=== PATIENT | female | born 1990 | race Caucasian/White ===

== ENCOUNTER 2016-07-11 12:21 | Emergency (ER) | payer OTHER ==
[~2016-07-11 12:21] MED LIST: ALUMCHW PO; AMOX500T PO; FLNIN/ NAE; LANS30CA63 PO; NORE5TAB5 PO; TRMCR130WC TOP
[2016-07-11 12:23] VITALS: TEMP 37.1
[2016-07-11] MEDS ORDERED: ALBUT/IPRATROP 3MG/0.5MG NEB 3 ML VIAL INH STA (12:28)
[2016-07-11] MEDS ORDERED: SODIUM CHLORIDE 0.9% 1000ML 500 ML IV STA (12:28)
[2016-07-11 12:43] VITALS: O2SAT 96
--- NOTE | 2016-07-11 12:55 | EMERGENCY ROOM VISIT NOTE ---
History Report prepared by Brissa: Diana Omalley Under the Supervision of: Dr. Jesse Thornton M.D. First contact with patient: 12:26 Chief Complaint: COUGH Stated Complaint: COUGH, BLURRY VISION History of Present Illness The patient is a 26 year old female who presents to the Emergency Room with complaints of persistent cough starting 3 weeks ago. 3 weeks ago she was admitted to [facility] with influenza B. She was there for 5 days and was on Tamiflu. They did a CT of the neck which found that she had a lump. The patient' s mother was told that her glands were enlarged. Upon returning home, the patient complained of neck pain. She had difficulty swallowing. She also has had lightheadedness, diarrhea, headache and pain and swelling on the side of her head since being discharged. Diarrhea is very unusual for her as she is usually constipated. The symptoms have worsened in the past 2 days and she has also developed blurry vision. She reports feeling cold and being unable to get warm. She does not have a fever because of immune deficiency and she cannot vomit because of prior surgery. She has no urinary symptoms. She has no history of lung disease or asthma. Her mother reports no known mono exposure. The patient has had pneumonia before. Source of History: patient, parent Onset: 3 weeks ago Position: other (global) Quality: other (cough) Timing: other (persistent) Associated Symptoms: + chills, + diarrhea, + headache, + neck pain, No fevers, No urinary symptoms, No vomiting Note: Pt has difficulty swallowing, lightheadedness, pain and swelling on side of head , blurry vision. Review of Systems See HPI for pertinent positives & negatives. A total of 10 systems reviewed and were otherwise negative. Past Medical & Surgical Medical Problems: (1) Cleft palate repair (2) Esophageal surgery (3) Jocelynn-Taybi syndrome Surgical Problems: (1) H/O myringotomy Family History No significant family history Unknown due to adoption. Social History Smoking Status: Never Smoker Drug Use: none Marital Status: single Housing Status: lives with family Occupation Status: disabled Current/Historical Medications Scheduled Albuterol Hfa (Ventolin Hfa), 2 PUFFS INH Q6H Lansoprazole (Prevacid), 30 MG PO DAILY Norethindrone (Aygestin), 5 MG PO DAILY Prednisone (Prednisone), 1 TAB PO DAILY Sertraline HCl (Sertraline HCl), 50 MG PO QPM Scheduled PRN Benzonatate (Tessalon Perles), 100 MG PO Q6H PRN for Cough Allergies Coded Allergies: Fluconazole (Unverified Allergy, Unknown, UNKNOWN, 07/11/16) Physical Exam Vital Signs Date Time Temp Pulse Resp B/P Pulse Ox O2 Delivery O2 Flow Rate FiO2 07/11/16 15:46 109 20 100/64 07/11/16 14:45 116 20 93/58 97 Room Air 07/11/16 13:56 131 20 107/68 96 Room Air 07/11/16 12:44 124 07/11/16 12:43 96 Room Air 07/11/16 12:43 96 Room Air 07/11/16 12:23 37.1 117 20 66/51 100 Physical Exam GENERAL: Patient is in no acute distress. Dry cough noted. HEENT: No acute trauma, normocephalic atraumatic, mucous membranes moist, no nasal congestion, no scleral icterus. Mild throat erythema without exudate. NECK: No stridor, trachea is midline, tenderness to palpation of the right neck , but no palpable adenopathy or swelling seen. LUNGS: Clear to auscultation bilaterally, no wheeze, no rhonchi, breath sounds equal. HEART: Tachycardic rate with a regular rhythm, no murmurs. ABDOMEN: Soft, nontender, bowel sounds positive, no hernias, no peritonitis. EXTREMITIES: No cyanosis or edema, full range of motion of all the joints without pain or difficulty, no signs for acute trauma. NEUROLOGIC: MR noted, moving all extremities equally, awake and alert. SKIN: No rash, no jaundice, no diaphoresis. Medical Decision & Procedures ER Provider Diagnostic Interpretation: X-ray results as stated below per interpretation by me and the radiologist: CHEST ONE VIEW PORTABLE CLINICAL HISTORY: EVALUATE RESPIRATORY DISTRESS. DYSPNEA COMPARISON STUDY: 01/31/2016 FINDINGS: The bones soft tissues and hemidiaphragms are normal. The cardiomediastinal silhouette is normal. The lungs are clear. The pulmonary vasculature is normal. IMPRESSION: Negative chest. Electronically signed by: Christo Avelar M.D. 07/11/2016 1:09 PM Dictated Date/Time: 07/11/2016 1:07 PM Laboratory Results 07/11/16 12:55 Red Blood Count 4.28, Mean Corpuscular Volume 84.1, Mean Corpuscular Hemoglobin 28.5, Mean Corpuscular Hemoglobin Concent 33.9, Mean Platelet Volume 10.5, Neutrophils (%) (Auto) 72.1, Lymphocytes (%) (Auto) 15.6, Monocytes (%) (Auto) 11.5, Eosinophils (%) (Auto) 0.2, Basophils (%) (Auto) 0.2, Neutrophils # (Auto ) 3.84, Lymphocytes # (Auto) 0.83, Monocytes # (Auto) 0.61, Eosinophils # (Auto ) 0.01, Basophils # (Auto) 0.01 07/11/16 12:55 Test 07/11/16 12:45 07/11/16 12:55 Urine Color YELLOW Urine Appearance CLEAR (CLEAR) Urine pH 6.5 (4.5-7.5) Urine Specific Blevins 1.003 (1.000-1.030) Urine Protein NEG (NEG) Urine Glucose (UA) NEG (NEG) Urine Ketones NEG (NEG) Urine Occult Blood NEG (NEG) Urine Nitrite NEG (NEG) Urine Bilirubin NEG (NEG) Urine Urobilinogen NEG (NEG) Urine Leukocyte Esterase MODERATE (NEG) Urine WBC (Auto) /hpf (0-5) Urine RBC (Auto) /hpf (0-4) Urine Hyaline Casts (Auto) /lpf (0-5) Urine Epithelial Cells (Auto) /lpf (0-5) Urine Bacteria (Auto) (NEG) Urine RBC 0-4 /hpf (0-4) Urine WBC 10-30 /hpf (0-5) Urine Epithelial Cells >30 /lpf (0-5) Urine Bacteria 1+ (NEG) White Blood Count 5.32 K/uL (4.8-10.8) Red Blood Count 4.28 M/uL (4.2-5.4) Hemoglobin 12.2 g/dL (12.0-16.0) Hematocrit 36.0 % (37-47) Mean Corpuscular Volume 84.1 fL (80-100) Mean Corpuscular Hemoglobin 28.5 pg (25-34) Mean Corpuscular Hemoglobin Concent 33.9 g/dl (32-36) Platelet Count 237 K/uL (130-400) Mean Platelet Volume 10.5 fL (7.4-10.4) Neutrophils (%) (Auto) 72.1 % Lymphocytes (%) (Auto) 15.6 % Monocytes (%) (Auto) 11.5 % Eosinophils (%) (Auto) 0.2 % Basophils (%) (Auto) 0.2 % Neutrophils # (Auto) 3.84 K/uL (1.4-6.5) Lymphocytes # (Auto) 0.83 K/uL (1.2-3.4) Monocytes # (Auto) 0.61 K/uL (0.11-0.59) Eosinophils # (Auto) 0.01 K/uL (0-0.5) Basophils # (Auto) 0.01 K/uL (0-0.2) RDW Standard Deviation 43.4 fL (36.4-46.3) RDW Coefficient of Variation 14.2 % (11.5-14.5) Immature Granulocyte % (Auto) 0.4 % Immature Granulocyte # (Auto) 0.02 K/uL (0.00-0.02) Erythrocyte Sedimentation Rate 66 mm/hr (0-21) Prothrombin Time 11.1 SECONDS (9.0-12.0) Prothromb Time International Ratio 1.0 (0.9-1.1) Activated Partial Thromboplast Time 27.5 SECONDS (21.0-31.0) Partial Thromboplastin Ratio 1.1 Anion Gap 11.0 mmol/L (3-11) Estimated GFR () 147.2 Estimated GFR (Non- 127.0 BUN/Creatinine Ratio 10.0 (10-20) Lactic Acid Level 1.2 mmol/L (0.4-2.0) Calcium Level 9.2 mg/dl (8.5-10.1) Magnesium Level 2.2 mg/dl (1.8-2.4) Total Bilirubin 0.4 mg/dl (0.2-1) Aspartate Amino Transf (AST/SGOT) 28 U/L (15-37) Alanine Aminotransferase (ALT/SGPT) 61 U/L (12-78) Alkaline Phosphatase 75 U/L (45-117) Total Creatine Kinase 47 U/L (26-192) Troponin I < 0.015 ng/ml (0-0.045) Total Protein 7.5 gm/dl (6.4-8.2) Albumin 3.2 gm/dl (3.4-5.0) Globulin 4.3 gm/dl (2.5-4.0) Albumin/Globulin Ratio 0.7 (0.9-2) Thyroid Stimulating Hormone (TSH) 1.640 uIu/ml (0.300-4.500) Free Thyroxine 1.11 ng/dl (0.80-1.60) Chemistry Specimen Hemolysis Lyme Disease IgG Antibody NEG (NEG) Lyme Disease IgM Antibody NEG (NEG) Monoscreen NEG (NEG) Laboratory results reviewed by me. Medications Administered Medications (Trade) Dose Ordered Sig/Elena Route Start Time Stop Time Status Last Admin Dose Admin Sodium Chloride (Nss 1000ml) 500 ml @ 999 mls/hr Q31M STAT IV 07/11/16 12:28 07/11/16 12:58 DC 07/11/16 12:53 999 MLS/HR Albuterol/ Ipratropium 3 ml 3 ml NOW STAT INH 07/11/16 12:28 07/11/16 12:36 DC 07/11/16 13:02 3 ML Sodium Chloride (Nss 500ml) 500 ml @ 999 mls/hr Q31M STAT IV 07/11/16 13:32 07/11/16 14:02 DC 07/11/16 13:39 999 MLS/HR Acetaminophen (Tylenol Tab) 650 mg NOW STAT PO 07/11/16 13:40 07/11/16 13:41 DC 07/11/16 13:53 650 MG Prednisone (PredniSONE TAB) 20 mg NOW STAT PO 07/11/16 15:31 07/11/16 15:32 DC 07/11/16 15:45 20 MG Albuterol (Ventolin Hfa Inhaler) 1 puffs NOW ONCE INH 07/11/16 15:45 07/11/16 15:46 DC 07/11/16 15:45 1 PUFFS ECG Indication: tachycardia Rate (beats per minute): 110 Rhythm: sinus tachycardia Findings: RBBB, no acute ischemic change ED Course 1227: The patient was evaluated in room C7. A complete history and physical exam was performed. 1228: Duoneb 3 ml INH, NSS 500 ml @ 999 mls/hr IV. 1332: NSS 500 ml @ 999 mls/hr IV. 1340: Acetaminophen 650 mg PO. 1353: I reevaluated the patient. I updated the patient's mother on the results. 1505: I reevaluated the patient. The patient's mother notes that the patient has stopped coughing after the breathing treatment. 1516: I discussed the patient's case with FARAZ [facility] family medicine. She will see the patient tomorrow in the office. 1522: I reevaluated the patient. I discussed results and discharge instructions with the patient's mother: she verbalized understanding and agreement. The patient is ready for discharge. 1531: Prednisone 20 mg PO. 1545: Albuterol 1 puffs INH. Medical Decision Differential diagnosis: pneumonia, bronchitis, electrolyte imbalance, dehydration, anemia, sepsis, bacteremia, lymphoma, mono, lyme disease There is no leukocytosis or concerning anemia. No significant electrolyte abnormality, kidney failure or hepatitis. The patient appears to be in a euthyroid state. Lactic acid level is not elevated making sepsis less likely. EKG shows a mild sinus tachycardia, no acute ischemia. Cardiac enzyme testing times one is not consistent with acute cardiac injury. Chest film shows no pneumonia or CHF. There was no pneumothorax. Urinalysis shows contamination, no obvious infection. There was no coagulopathy. Sedimentation rate was moderately elevated at just over 60. Blood cultures are pending. Lyme disease testing and mono testing were negative. The patient was given a DuoNeb, this helped her cough significantly as per the mother. She received a small dose of oral prednisone for bronchospasm. She was given oral Tylenol for her fever. She received IV saline for hydration. Patient did receive 1 dose of albuterol via MDI. I talked to the family at length. The patient does not appear toxic, I did speak with the patient's family doctor's office. The patient is being discharged on Tessalon Perles, albuterol via MDI, a very low dose and short dose of prednisone. The patient appears to be having bronchospasm, likely from her recent viral illness. I also think she is somewhat dehydrated and this is contributing to her symptoms. The headache is likely from all the coughing. The patient is being discharged with instructions to return for worsening symptoms. They will be seeing their family doctor's office tomorrow, openings for an appointment were confirmed. Consults Time Called: 1500 Consulting Physician: FARAZ [facility] Returned Call: 1516 I discussed the patient's case with her. She will see the patient tomorrow in the office. Impression Primary Impression: Cough Additional Impressions: Headache Dehydration Neck pain on right side Scribe Attestation The scribe's documentation has been prepared under my direction and personally reviewed by me in its entirety. I confirm that the note above accurately reflects all work, treatment, procedures, and medical decision making performed by me. Departure Information Dispostion Home / Self-Care Prescriptions Benzonatate (TESSALON PERLES) 100 Mg Cap 100 MG PO Q6H Y for Cough, #12 CAP Prov: Jesse Thornton M.D. 07/11/16 Albuterol Hfa (VENTOLIN HFA) 200 Puffs/25423 Mcg Aers 2 PUFFS INH Q6H, #1 INHALER Prov: Jesse Thornton M.D. 07/11/16 Prednisone (Prednisone) 20 Mg Tab 1 TAB PO DAILY for 2 Days, #2 TAB Prov: Jesse Thornton M.D. 07/11/16 Referrals Belén Bains (PCP) Forms HOME CARE DOCUMENTATION FORM, IMPORTANT VISIT INFORMATION Patient Instructions My [facility] Additional Instructions prednisone daily for 2 more days--next dose tomorrow albuterol 2 puffs every 6 hours more fluids rest tessalon perles 1 tab every 6 hours for cough see your doctor tomorrow return if worsening all testing today was ok as we discussed Problem Qualifiers
[2016-07-11 13:04] LABS: URINE APPEARANCE CLEAR (CLEAR); URINE BILIRUBIN NEG (NEG); URINE COLOR YELLOW; URINE NITRITE NEG (NEG); URINE PH 6.5 (4.5-7.5); URINE SPECIFIC GRAVITY 1.003 (1.000-1.030); UROBILINOGEN NEG (NEG)
[2016-07-11 13:08] LABS: MANUAL MICROSCOPIC REQUIRED? YES; REVIEW REQ? NO
--- NOTE | 2016-07-11 13:10 | DIAGNOSTIC IMAGING REPORT ---
CHEST ONE VIEW PORTABLE CLINICAL HISTORY: EVALUATE RESPIRATORY DISTRESS. DYSPNEA COMPARISON STUDY: 01/31/2016 FINDINGS: The bones soft tissues and hemidiaphragms are normal. The cardiomediastinal silhouette is normal. The lungs are clear. The pulmonary vasculature is normal. IMPRESSION: Negative chest. Electronically signed by: Christo Avelar M.D. 07/11/2016 1:09 PM Dictated Date/Time: 07/11/2016 1:07 PM
[2016-07-11 13:14] LABS: BASO % 0.2 %; BASO ABS # 0.01 K/uL (0-0.2); COMPLETE YES; EOS % 0.2 %; IG% 0.4 %; LYMPH % 15.6 %; LYMPH ABS # 0.83 K/uL (1.2-3.4); MEAN CELL VOLUME 84.1 fL (80-100); MEAN CORPUSCULAR HEMOGLOBIN 28.5 pg (25-34); MEAN CORPUSCULAR HGB CONC 33.9 g/dl (32-36); MEAN PLATELET VOLUME 10.5 fL (7.4-10.4); MONO % 11.5 %; NEUT % 72.1 %; PLATELET COUNT 237 K/uL (130-400); RED BLOOD COUNT 4.28 M/uL (4.2-5.4); WHITE BLOOD COUNT 5.32 K/uL (4.8-10.8)
[2016-07-11 13:20] LABS: URINE RBC 0-4 /hpf (0-4)
[2016-07-11 13:21] LABS: URINE BACTERIA 1+ (NEG); ZZUR CULT IF INDIC CLEAN CATCH YES
[2016-07-11 13:24] LABS: PARTIAL THROMBOPLASTIN RATIO 1.1; PROTHROMBIN TIME (PATIENT) 11.1 SECONDS (9.0-12.0)
[2016-07-11] MEDS ORDERED: SODIUM CHLORIDE 0.9% 500ML 500 ML IV STA (13:32)
[2016-07-11] MEDS ORDERED: ZLF/50 PO (13:37)
[2016-07-11] MEDS ORDERED: ACETAMINOPHEN 325 MG TAB PO STA (13:40)
[2016-07-11 13:52] LABS: ALT/SGPT 61 U/L (12-78); BLOOD UREA NITROGEN 6 mg/dl (7-18); CALCIUM 9.2 mg/dl (8.5-10.1); CARBON DIOXIDE 24 mmol/L (21-32); CHLORIDE 105 mmol/L (98-107); CREATININE 0.57 mg/dl (0.60-1.20); GLUCOSE 70 mg/dl (70-99); MAGNESIUM 2.2 mg/dl (1.8-2.4); POTASSIUM 3.7 mmol/L (3.5-5.1); SODIUM 140 mmol/L (136-145)
[2016-07-11 14:15] LABS: LYME DISEASE AB IGG NEG (NEG); LYME DISEASE AB IGM NEG (NEG)
[2016-07-11 14:20] LABS: ALB/GLOB RATIO 0.7 (0.9-2); ALKALINE PHOSPHATASE 75 U/L (45-117); AST/SGOT 28 U/L (15-37)
[2016-07-11 14:45] VITALS: O2SAT 97
[2016-07-11] MEDS ORDERED: VNTHFA/IN INH (15:34)
[2016-07-11] MEDS ORDERED: PRED20TA PO (15:34)
[2016-07-11] MEDS ORDERED: BENZ100C18 PO (15:34)
[2016-07-11] MEDS ORDERED: ALBUTEROL HFA 8 GM INHALER INH ONE (15:45)
[2016-07-11 15:46] VITALS: BP 100/64; PULSE 109
== END 2016-07-11 16:08 | disposition home or self-care (01) ==
LOC: C.EDB 12:23 → C.EDC 16:08
DX: R05 Cough (principal); R51 Headache; E86.0 Dehydration; M54.2 Cervicalgia; Q87.2 Congenital malformation syndromes predominantly involving limbs

== ENCOUNTER → 2016-07-19 | Outpatient (CLI) | payer OTHER ==
[~2016-07-19] MED LIST changes: -ALUMCHW PO; -AMOX500T PO; +BENZ100C18 PO; -FLNIN/ NAE; -TRMCR130WC TOP; +VNTHFA/IN INH; +ZLF/50 PO
[2016-07-26 02:52] LABS: MUMPS VIRUS ANTIBODY IGM <1:20; R. TYPHI IgG AB Not Detected (Not Detected); R. TYPHI IgM AB Not Detected (Not Detected); RMSF IgM AB Not Detected (Not Detected)
== END | disposition home or self-care (01) ==
LOC: C.LAB1850 10:38
PROVIDERS: ATTEND Internal Medicine Infectious Disease
DX: L04.9 Acute lymphadenitis, unspecified (principal)

== ENCOUNTER → 2016-10-18 | Outpatient (CLI) | payer OTHER ==
[~2016-10-18] MED LIST changes: -BENZ100C18 PO
--- NOTE | 2016-10-18 16:43 | DIAGNOSTIC IMAGING REPORT ---
RIGHT HAND MIN 3 VIEWS ROUTINE CLINICAL HISTORY: Skeletal pain. Positive RICH. COMPARISON: None FINDINGS: Alignment of the right hand is anatomic. There is no fracture or suspicious osseous lesion. A 1.6 cm sclerotic focus within the middle phalanx of the right third digit has benign imaging characteristics. No erosions are identified. Joint spaces are preserved. IMPRESSION: 1. No acute fracture. 2. No radiographic evidence of an erosive/inflammatory arthropathy. No erosions identified. 3. 1.6 cm sclerotic focus within the middle phalanx of the right third digit. This has benign imaging characteristics and could reflect a bone island or enchondroma. Electronically signed by: Fabrice Randall M.D. 10/18/2016 4:42 PM Dictated Date/Time: 10/18/2016 4:39 PM
--- NOTE | 2016-10-18 16:46 | DIAGNOSTIC IMAGING REPORT ---
SKULL MIN 4 VIEWS CLINICAL HISTORY: Skeletal pain. COMPARISON STUDY: Head CT August 02, 2006. FINDINGS: A 4 mm lytic lesion projecting over the right lambdoid suture is unchanged exam of August 02, 2006 and has benign imaging characteristics. Visualized portions of the sinuses appear clear. There are multiple dental amalgams. Several teeth are absent. IMPRESSION: No significant calvarial abnormality. Electronically signed by: Fabrice Randall M.D. 10/18/2016 4:44 PM Dictated Date/Time: 10/18/2016 4:42 PM
--- NOTE | 2016-10-18 16:48 | DIAGNOSTIC IMAGING REPORT ---
C-SPINE ROUTINE 4 OR 5 VIEWS CLINICAL HISTORY: Skeletal pain. Positive RICH. COMPARISON STUDY: No previous studies for comparison. FINDINGS: There is reversal of the normal cervical lordosis. No fracture or suspicious lesion is present. Disc spaces are preserved. There is mild endplate osteophytosis at several levels. Facet joints appear intact. IMPRESSION: 1. No cervical spine fracture. 2. Reversal normal cervical lordosis. 3. Mild endplate osteophytosis at several levels within the cervical spine. Electronically signed by: Fabrice Randall M.D. 10/18/2016 4:47 PM Dictated Date/Time: 10/18/2016 4:45 PM
--- NOTE | 2016-10-18 16:48 | DIAGNOSTIC IMAGING REPORT ---
LEFT HAND 3 VIEWS CLINICAL HISTORY: Positive RICH. FINDINGS: 3 views of left hand are compared to study dated 08/10/2015. The skeletal structures are well mineralized. No fracture is seen. The joint spaces of the hand are well-maintained. The overlying soft tissues are within normal limits. A watch is incidentally noted around the wrist. IMPRESSION: Unremarkable radiographic assessment of the left hand. Electronically signed by: Jesse Cullen M.D. 10/18/2016 4:47 PM Dictated Date/Time: 10/18/2016 4:45 PM
[2016-10-18 18:03] LABS: URINE APPEARANCE CLEAR (CLEAR); URINE BILIRUBIN NEG (NEG); URINE COLOR YELLOW; URINE EPITHELIAL CELL AUTO >30 /lpf (0-5); URINE NITRITE NEG (NEG); URINE SPECIFIC GRAVITY 1.026 (1.000-1.030); UROBILINOGEN NEG (NEG)
[2016-10-18 18:11] LABS: MANUAL MICROSCOPIC REQUIRED? NO; REVIEW REQ? YES
[2016-10-18 18:19] LABS: ALT/SGPT 42 U/L (12-78); C-REACTIVE PROTEIN 1.42 mg/dl (0-0.29); CREATININE 0.65 mg/dl (0.60-1.20)
[2016-10-18 18:22] LABS: ALKALINE PHOSPHATASE 107 U/L (45-117); AST/SGOT 20 U/L (15-37)
[2016-10-23 03:01] LABS: ANTI-CENTROMERE AB <1.0 NEG AI (<1.0 NEG); ANTI-SS-A <1.0 NEG AI (<1.0 NEG); ANTI-SS-B <1.0 NEG AI (<1.0 NEG); DNA ds CRITHIDIA NEGATIVE (NEGATIVE); Sm Antibody 1.0 POS AI (<1.0 NEG)
--- NOTE | 2016-10-23 11:23 | CODING QUERY MEDICAL NECESSITY ---
CQSUPPORTING DIAGNOSIS NEEDED A supporting diagnosis is required for the test/procedure performed on this patient in order for us to be reimbursed by the patient's insurance. Please provide a supporting diagnosis for the following test/procedure listed below next to the test name along with your signature. *If there is no additional diagnosis for this patient that would support the following test/procedure please document that below next to the test/procedure. Test(s)/Procedure(s) that require a supporting diagnosis: DOS 10/18/16 VITAMIN D TEST Provider Signature: Date: Thank you Emma Prescott Health Information Management Once completed, please kindly fax back to [phone] For questions please call [phone]
== END | disposition home or self-care (01) ==
LOC: C.RAD1850 16:08
PROVIDERS: ATTEND Internal Medicine Rheumatology
DX: R76.8 Other specified abnormal immunological findings in serum (principal); M89.8X9 Other specified disorders of bone, unspecified site; R51 Headache; M53.82 Other specified dorsopathies, cervical region; R93.7 Abnormal findings on diagnostic imaging of other parts of musculoskeletal system; E55.9 Vitamin D deficiency, unspecified; E55.0 Rickets, active

== ENCOUNTER → 2016-10-18 | Outpatient (CLI) | payer OTHER ==
--- NOTE | 2016-10-18 13:06 | DIAGNOSTIC IMAGING REPORT ---
SOFT TISSUE HEAD/NECK-THYROID CLINICAL HISTORY: 26 years-old Female with R22.1 Mass of left side of neck PATIENT WITH COMPLAINTS OF A LUMP. COMPARISON: Thyroid ultrasound 11/12/2014. TECHNIQUE: Multiple real time sonographic images of the thyroid were obtained accessing nath scale appearance and color doppler flow. FINDINGS: MEASUREMENTS: Right lobe: 2.7 x 1.3 x 1.1 cm Left lobe: 3.0 x 1.3 x 1.2 cm Isthmus: 0.3 cm PARENCHYMA: The thyroid parenchymal echotexture is homogeneous. NODULES: No discrete nodules are appreciated. No abnormality identified within the left side of the neck at the area of concern. IMPRESSION: 1. Unremarkable sonographic appearance of the thyroid without discrete nodule. 2. No focal abnormality identified within the left aspect of the neck at area of concern. The above report was generated using voice recognition software. It may contain grammatical, syntax or spelling errors. Electronically signed by: Lul Damico M.D. 10/18/2016 1:05 PM Dictated Date/Time: 10/18/2016 1:03 PM
== END | disposition home or self-care (01) ==
LOC: C.ULTRBC 12:40
PROVIDERS: ATTEND Family Medicine
DX: R22.1 Localized swelling, mass and lump, neck (principal)

== ENCOUNTER 2018-05-10 20:06 | Observation (INO) ==
[2018-05-10] MEDS ORDERED: DEXAMETHASONE **PF** INJ 10 MG/ML VIAL IV ONE (21:39)
[2018-05-10] MEDS ORDERED: SODIUM CHLORIDE 0.9% 1000ML 1,000 ML IV ONE (21:39)
[2018-05-10] MEDS ORDERED: ALBUT/IPRATROP 3MG/0.5MG NEB 3 ML VIAL NEB STA (21:39)
[2018-05-10 22:14] LABS: Basophils # (auto) 0.01 K/uL (0-0.2); Basophils % (auto) 0.1 %; Eosinophils # (auto) 0.12 K/uL (0-0.5); Eosinophils % (auto) 1.2 %; Hematocrit (blood only) 40.4 % (37-47); Hemoglobin 13.9 g/dL (12.0-16.0); Immature Granulocytes # (auto) 0.03 K/uL (0.00-0.02); Immature Granulocytes % (auto) 0.3 %; Lymphocytes # (auto) 2.32 K/uL (1.2-3.4); Lymphocytes % (auto) 23.6 %; Mean Corpuscular Hgb Conc 34.4 g/dL (32-36); Mean Corpuscular Volume 84.7 fL (80-100); Monocytes % (auto) 13.2 %; Neutrophils # (auto) 6.05 K/uL (1.4-6.5); Neutrophils % (auto) 61.6 %; Platelet Count 278 K/uL (130-400); RDW Standard Deviation 43.8 fL (36.4-46.3); Red Blood Count 4.77 M/uL (4.2-5.4); White Blood Count 9.83 K/uL (4.8-10.8)
[2018-05-10 22:29] LABS: Influenza A virus by PCR Neg for Influ A (Neg); Influenza B virus by PCR Neg for Influ B (Neg)
[2018-05-10 22:35] LABS: Alanine Aminotransferase 30 U/L (12-78); Albumin Level 3.8 gm/dl (3.4-5.0); Aspartate Aminotransferase 16 U/L (15-37); Blood Urea Nitrogen 7 mg/dl (7-18); Calcium 9.6 mg/dl (8.5-10.1); Carbon Dioxide 25 mmol/L (21-32); Chloride 107 mmol/L (98-107); Creatinine Clr Calc Pharmacy 99.4 ml/min; Est GFR (African American) > 150.0; Est GFR (Non-African American) 129.9; Glucose 80 mg/dl (70-99); Potassium 3.9 mmol/L (3.5-5.1); Sodium 139 mmol/L (136-145)
[2018-05-10 22:38] LABS: Albumin Globulin Ratio 0.7 (0.9-2); Alkaline Phosphatase 76 U/L (45-117); Bilirubin,Total 0.2 mg/dl (0.2-1); Globulin 5.1 gm/dl (2.5-4.0); Total Protein 8.9 gm/dl (6.4-8.2)
--- NOTE | 2018-05-10 22:43 | XRay Report ---
XR chest 2V routine CLINICAL HISTORY: cough/fever COMPARISON STUDY: 07/11/2016 FINDINGS: The cardiac and mediastinal contours remain stable. There is a retrocardiac opacity likely representing a hiatal hernia. There is no failure. There is no focal pulmonary consolidation. There a re no pleural effusions.[ IMPRESSION: No active disease in the chest. Electronically signed by: Gil Machado M.D. 05/10/2018 10:41 PM
[2018-05-10 23:46] LABS: INR 1.1 (0.9-1.1); Partial Thromboplastin Time 27.6 Seconds (21.0-31.0); Prothrombin Time 10.9 Seconds (9.0-12.0)
[2018-05-10] MEDS ORDERED: IOVERSOL 100ml IV PRN (23:46)
--- NOTE | 2018-05-10 23:56 | CT Scan Report ---
CT ANGIOGRAM OF THE CHEST CLINICAL HISTORY: Cough and fever. COMPARISON STUDY: Chest x-ray dated 05/10/2018. Chest CT dated 08/31/2013. TECHNIQUE: Following the IV administration of 90 cc of Optiray 320, CT angiogram of the chest was per formed from the upper abdomen to the thoracic inlet utilizing the pulmonary embolus protocol. Images are reviewed in the axial, sagittal, and coronal planes. 3-D MIPS images are created and assessed. IV contrast was administered without complication. A dose lowering technique was utilized adhering to the principles of ALARA. The examination is modestly degraded by motion artifact. Evaluation of the l dalton parenchyma is degraded by motion artifact. CT DOSE: 159.62 mGy.cm FINDINGS: Thyroid: Imaged portions of the thyroid gland are normal in size and attenuation. Thoracic aorta: The thoracic aorta is normal in caliber and demonstrates standard 3-vessel arch anato my. No dissection is seen. Pulmonary vasculature: The pulmonary trunk is normal in caliber. There are no filling defects identif ied in main or lobar pulmonary branches to suggest pulmonary embolus. Evaluation of the peripheral br anches is compromised by motion artifact. Heart: The heart is normal in size and without pericardial effusion. Lungs and pleural spaces: Evaluation of the lung parenchyma is compromised by motion artifact. There is minimal patchy/nodular consolidation at the right apex seen on image #159. Lungs are otherwise abram ar. No pleural effusion is identified. The trachea and central airways are clear. Mediastinum: There is no mediastinal lymphadenopathy. Twyla: Clear. Axillae: There is no axillary lymphadenopathy. Upper abdomen: Partially visualized upper abdominal viscera is within normal limits. Skeletal structures: No lytic or blastic bony lesions are seen. IMPRESSION: 1. Motion compromised examination. 2. There is no evidence of central pulmonary embolus in the main or lobar pulmonary arteries. Evaluat ion of the peripheral branches is significantly degraded. 3. Minimal patchy consolidative change is seen at the right apex. Correlate clinically for evidence o f a mild infectious/inflammatory pneumonitis. Electronically signed by: Jesse Cullen M.D. 05/10/2018 11:55 PM
[2018-05-11 00:24] LABS: C Reactive Protein 4.41 mg/dl (0-0.29); Troponin I < 0.015 ng/ml (0-0.045)
[2018-05-11] MEDS ORDERED: PIPERACILLIN/TAZOBACTAM 4.5 GM/120 ML BAG IV ONE (00:27)
[2018-05-11] MEDS ORDERED: PIPERACILL/TAZOBAC CONSULT ACTIVE PRN (00:27)
--- NOTE | 2018-05-11 02:06 | Emergency Department Note ---
History of Present Illness General Chief complaint: Cough Stated complaint: COUGH History of Present Illness Maximum Pain Intensity: 7 This 28-year-old presents to the ER complaining of cough, difficulty breathing and chest pain Location: Chest Quality: Hard to breathe Severity: Moderate Duration: 2 weeks Timin weeks ago Context: Symptoms got worse and mother brought the child in Modifying factors: better with nothing; worse with activity Patient saw the family doctor the other day was started on Augmentin. Symptoms have been getting worse. Patient has immunoglobin deficiency. She does not receive IG therapy. Family denies fevers, abdominal pain, leg pain or swelling, tobacco abuse. Mother states she is very prone to getting pneumonia. No prior heart disease or blood clots. Home Medications Home Medications Medication Instructions Recorded Confirmed Type amoxicillin-pot clavulanate 1 tab PO TID 05/10/18 05/10/18 History benzonatate 200 mg PO TID PRN 05/10/18 05/10/18 History buspirone 5 mg PO BID 05/10/18 05/10/18 History fluticasone 2 spray INTRANASAL DAILY 05/10/18 05/10/18 History gabapentin 200 mg PO QPM 05/10/18 05/10/18 History norethindrone acetate 5 mg PO DAILY 05/10/18 05/10/18 History pantoprazole 40 mg PO DAILY 05/10/18 05/10/18 History simethicone [Gas Relief] 125 mg PO DIRECTED PRN 05/10/18 05/10/18 History Allergies Allergy/AdvReac Type Severity Reaction Status Date / Time fluconazole Allergy Unknown UNKNOWN Unverified 07/11/16 13:37 Past Med/Surg History Medical History Jocelynn-Taybi syndrome (Chronic) Social History Feels Safe at Home: Yes Smoking Status: Never smoker Review of Systems All systems reviewed & are unremarkable except as noted in HPI & below Physical Exam Vital Signs Vital Signs - 24 hr 05/10/18 20:16 05/10/18 20:57 05/10/18 22:08 Temperature 36.8 C Temperature Source Oral Sepsis Recent Fever Within 48 Hours No Sepsis New/Unexplained Change in Mental Status No Sepsis Action Taken by Nursing No Action Required Pulse Rate 134 H Pulse Rate [Finger] 123 H 127 H Pulse Rhythm [Finger] Pulse Strength [Finger] Respiratory Rate 20 20 21 Respiratory Effort / Characteristics Respiratory Depth Respiratory Pattern Blood Pressure 105/74 Blood Pressure [Right Arm] 125/79 106/70 Blood Pressure Mean 84 Blood Pressure Mean [Right Arm] 94 82 Blood Pressure Position [Right Arm] Pulse Oximetry 96 96 98 Oxygen Delivery Method Room Air Room Air 05/10/18 23:50 Temperature Temperature Source Sepsis Recent Fever Within 48 Hours Sepsis New/Unexplained Change in Mental Status Sepsis Action Taken by Nursing Pulse Rate Pulse Rate [Finger] 130 H Pulse Rhythm [Finger] Regular Pulse Strength [Finger] Normal Respiratory Rate 21 Respiratory Effort / Characteristics Non-Labored Spontaneous Respiratory Depth Normal Respiratory Pattern Regular Blood Pressure Blood Pressure [Right Arm] 132/77 Blood Pressure Mean Blood Pressure Mean [Right Arm] 95 Blood Pressure Position [Right Arm] Sitting Pulse Oximetry 98 Oxygen Delivery Method Room Air VITALS: Vitals are noted on the nurse's note and reviewed by myself. Vital signs tachycardic. GENERAL: Pleasant female coughing, in no acute distress, nondiaphoretic, well- developed well-nourished. SKIN: The skin was without rashes, erythema, edema, or bruising. There is no tenting of the skin. Capillary reflex less than 2 seconds. HEAD: Normocephalic atraumatic. EARS: External auditory canals clear, tympanic membranes pearly nath without erythema or effusion bilaterally. EYES: Pupils equal round and reactive to light and accommodation. Conjunctivae without injection, sclerae without icterus. Extraocular movements intact. NOSE: Patent, turbinates without inflammation or discharge. No sinus tenderness. MOUTH: Mucous membranes moist. Pharynx without erythema or exudate. Uvula midline. Airway patent. Tongue does not deviate. NECK: Supple without nuchal rigidity. No lymphadenopathy. No thyromegaly. Cervical spine is nontender. No JVD. HEART: Regular rate and rhythm LUNGS: Mild diffuse end expiratory wheezes without rales or rhonchi. No retractions or accessory muscle use. ABDOMEN: Positive bowel sounds x 4. Normal tympanic percussion. Soft, nontender, without masses or organomegaly. Copeland sign negative. No guarding or rebound tenderness. No CVA tenderness MUSCULOSKELETAL: No muscle atrophy, erythema, or edema noted. NEURO: Patient was alert and oriented to person place and time. Normal sensation to light and sharp touch. No focal neurological deficits. Course Administered Medications Ioversol (Optiray 320 100ml) 90 ml IV ONCE PRN PRN Reason: Interaction Checking Stop: 05/14/18 23:45 Last Admin: 05/10/18 23:46 Dose: 90 ml Documented by: [id number] Discontinued Medications Albuterol (Duoneb) 3 ml NEB NOW STA Stop: 05/10/18 21:40 Last Admin: 05/10/18 22:05 Dose: 3 ml Documented by: [id number] Dexamethasone Sodium Phosphate (Decadron Pf) 10 mg IV NOW ONE Stop: 05/10/18 21:40 Last Admin: 05/10/18 22:05 Dose: 10 mg Documented by: [id number] Sodium Chloride (Nss 1000ml) 1,000 mls @ 999 mls/hr IV .Q1H1M ONE Stop: 05/10/18 22:39 Last Infusion: 05/10/18 23:22 Dose: 0 mls/hr Documented by: [id number] Admin: 05/10/18 22:04 Dose: 999 mls/hr Documented by: [id number] Piperacillin Sod/Tazobactam Sod (Zosyn) 4.5 gm in 120 mls @ 240 mls/hr IV NOW ONE Stop: 05/11/18 00:56 Last Infusion: 05/11/18 01:12 Dose: 0 mls/hr Documented by: [id number] Admin: 05/11/18 00:39 Dose: 240 mls/hr Documented by: [id number] Medical Decision Making Medical Records Attestation: I reviewed the patient's medical records. Home Medications Current Medication List: was personally reviewed by me Laboratory Data Attestation: I reviewed the patient's lab results. Result diagrams: 05/10/18 21:55 05/10/18 21:55 Lab Results 05/10/18 05/10/18 05/10/18 Range/Units 21:24 21:55 21:55 WBC 9.83 (4.8-10.8) K/uL RBC 4.77 (4.2-5.4) M/uL Hgb 13.9 (12.0-16.0) g/dL Hct 40.4 (37-47) % MCV 84.7 (80-100) fL MCH 29.1 (25-34) pg MCHC 34.4 (32-36) g/dL RDW Std Deviation 43.8 (36.4-46.3) fL RDW Coeff of Ally 14.0 (11.5-14.5) % Plt Count 278 (130-400) K/uL MPV 10.0 (7.4-10.4) fL Immature Gran % (Auto) 0.3 % Neut % (Auto) 61.6 % Lymph % (Auto) 23.6 % Summit % (Auto) 13.2 % Eos % (Auto) 1.2 % Baso % (Auto) 0.1 % Immature Gran # (Auto) 0.03 H (0.00-0.02) K/uL Neut # (Auto) 6.05 (1.4-6.5) K/uL Lymph # (Auto) 2.32 (1.2-3.4) K/uL Summit # (Auto) 1.30 H (0.11-0.59) K/uL Eos # (Auto) 0.12 (0-0.5) K/uL Baso # (Auto) 0.01 (0-0.2) K/uL ESR (0-21) mm/hr PT Cancelled INR Cancelled APTT Cancelled PTT Ratio Cancelled Sodium (136-145) mmol/L Potassium (3.5-5.1) mmol/L Chloride (98-107) mmol/L Carbon Dioxide (21-32) mmol/L Anion Gap (3-11) BUN (7-18) mg/dl Creatinine (0.6-1.2) mg/dl Est Cr Clr Drug Dosing ml/min Est GFR ( Amer) Est GFR (Non-Af Amer) BUN/Creatinine Ratio (10-20) Glucose (70-99) mg/dl POC Lactic Acid Esau (0.90-1.70) mmol/L Calcium (8.5-10.1) mg/dl Total Bilirubin (0.2-1) mg/dl AST (15-37) U/L ALT (12-78) U/L Alkaline Phosphatase (45-117) U/L POC Troponin I (0-0.045) ng/ml Troponin I (0-0.045) ng/ml C-Reactive Protein (0-0.29) mg/dl Total Protein (6.4-8.2) gm/dl Albumin (3.4-5.0) gm/dl Globulin (2.5-4.0) gm/dl Albumin/Globulin Ratio (0.9-2) Influenza Type A (PCR) Neg for Influ A (Neg) Influenza Type B (PCR) Neg for Influ B (Neg) 05/10/18 05/10/18 05/10/18 Range/Units 21:55 21:55 22:05 WBC (4.8-10.8) K/uL RBC (4.2-5.4) M/uL Hgb (12.0-16.0) g/dL Hct (37-47) % MCV (80-100) fL MCH (25-34) pg MCHC (32-36) g/dL RDW Std Deviation (36.4-46.3) fL RDW Coeff of Ally (11.5-14.5) % Plt Count (130-400) K/uL MPV (7.4-10.4) fL Immature Gran % (Auto) % Neut % (Auto) % Lymph % (Auto) % Summit % (Auto) % Eos % (Auto) % Baso % (Auto) % Immature Gran # (Auto) (0.00-0.02) K/uL Neut # (Auto) (1.4-6.5) K/uL Lymph # (Auto) (1.2-3.4) K/uL Summit # (Auto) (0.11-0.59) K/uL Eos # (Auto) (0-0.5) K/uL Baso # (Auto) (0-0.2) K/uL ESR > 90 H (0-21) mm/hr PT INR APTT PTT Ratio Sodium 139 (136-145) mmol/L Potassium 3.9 (3.5-5.1) mmol/L Chloride 107 (98-107) mmol/L Carbon Dioxide 25 (21-32) mmol/L Anion Gap 7.0 (3-11) BUN 7 (7-18) mg/dl Creatinine 0.51 L (0.6-1.2) mg/dl Est Cr Clr Drug Dosing 99.4 ml/min Est GFR ( Amer) > 150.0 Est GFR (Non-Af Amer) 129.9 BUN/Creatinine Ratio 13.0 (10-20) Glucose 80 (70-99) mg/dl POC Lactic Acid Esau (0.90-1.70) mmol/L Calcium 9.6 (8.5-10.1) mg/dl Total Bilirubin 0.2 (0.2-1) mg/dl AST 16 (15-37) U/L ALT 30 (12-78) U/L Alkaline Phosphatase 76 (45-117) U/L POC Troponin I 0.09 H (0-0.045) ng/ml Troponin I (0-0.045) ng/ml C-Reactive Protein (0-0.29) mg/dl Total Protein 8.9 H (6.4-8.2) gm/dl Albumin 3.8 (3.4-5.0) gm/dl Globulin 5.1 H (2.5-4.0) gm/dl Albumin/Globulin Ratio 0.7 L (0.9-2) Influenza Type A (PCR) (Neg) Influenza Type B (PCR) (Neg) 05/10/18 05/10/18 05/10/18 Range/Units 22:26 23:15 23:40 WBC (4.8-10.8) K/uL RBC (4.2-5.4) M/uL Hgb (12.0-16.0) g/dL Hct (37-47) % MCV (80-100) fL MCH (25-34) pg MCHC (32-36) g/dL RDW Std Deviation (36.4-46.3) fL RDW Coeff of Ally (11.5-14.5) % Plt Count (130-400) K/uL MPV (7.4-10.4) fL Immature Gran % (Auto) % Neut % (Auto) % Lymph % (Auto) % Summit % (Auto) % Eos % (Auto) % Baso % (Auto) % Immature Gran # (Auto) (0.00-0.02) K/uL Neut # (Auto) (1.4-6.5) K/uL Lymph # (Auto) (1.2-3.4) K/uL Summit # (Auto) (0.11-0.59) K/uL Eos # (Auto) (0-0.5) K/uL Baso # (Auto) (0-0.2) K/uL ESR (0-21) mm/hr PT 10.9 INR 1.1 APTT 27.6 PTT Ratio 1.0 Sodium (136-145) mmol/L Potassium (3.5-5.1) mmol/L Chloride (98-107) mmol/L Carbon Dioxide (21-32) mmol/L Anion Gap (3-11) BUN (7-18) mg/dl Creatinine (0.6-1.2) mg/dl Est Cr Clr Drug Dosing ml/min Est GFR ( Amer) Est GFR (Non-Af Amer) BUN/Creatinine Ratio (10-20) Glucose (70-99) mg/dl POC Lactic Acid Esau 0.97 (0.90-1.70) mmol/L Calcium (8.5-10.1) mg/dl Total Bilirubin (0.2-1) mg/dl AST (15-37) U/L ALT (12-78) U/L Alkaline Phosphatase (45-117) U/L POC Troponin I (0-0.045) ng/ml Troponin I < 0.015 (0-0.045) ng/ml C-Reactive Protein 4.41 H (0-0.29) mg/dl Total Protein (6.4-8.2) gm/dl Albumin (3.4-5.0) gm/dl Globulin (2.5-4.0) gm/dl Albumin/Globulin Ratio (0.9-2) Influenza Type A (PCR) (Neg) Influenza Type B (PCR) (Neg) Imaging Data Attestation: I personally reviewed and interpreted this imaging study as follows: MDM Narrative Prior records/ancillary studies reviewed. Triage Nursing notes reviewed. Additional history obtained from family. The patient's history was concerning for cold symptoms with chest pain. Differential diagnosis: Etiologies such as cardiac ischemia, aortic dissection, pulmonary embolism, pneumonia, pneumothorax, musculoskeletal, infections, pericarditis, myocarditis, esophageal rupture, gastrointestinal, as well as others were entertained. Physical examination: As above. ER treatment provided: IV Zosyn, nebulizer, steroids, IV fluids On reassessment the patient felt better. Diagnostic interpretation by me: The electrocardiogram was normal sinus, right axis deviation, incomplete right bundle branch block, rate of 112. Impression sinus tachycardia with incomplete right bundle branch block interpreted by myself and unchanged from prior. I think arrhythmia is unlikely. EKG shows normal sinus rhythm with no interval abnormalities such as QT prolongation or WPW. There are no findings to suggest Brugada syndrome. Cardiac monitoring in the emergency department reveals no tachycardic or bradycardic dysrhythmia. Hypertrophic cardiomyopathy was considered but there are no clear historical elements pointing toward this. EKG is not suggestive. The QRS voltage is not extremely large and there are no suggestive Q waves. The labs revealed elevated troponin. Negative lactic acid. Elevated inflamma tory markers Negative flu. Blood cultures pending Imaging studies: CT ANGIOGRAM OF THE CHEST CLINICAL HISTORY: Cough and fever. COMPARISON STUDY: Chest x-ray dated 05/10/2018. Chest CT dated 08/31/2013. TECHNIQUE: Following the IV administration of 90 cc of Optiray 320, CT angiogram of the chest was performed from the upper abdomen to the thoracic inlet utilizing the pulmonary embolus protocol. Images are reviewed in the axial, sagittal, and coronal planes. 3-D MIPS images are created and assessed. IV contrast was administered without complication. A dose lowering technique was utilized adhering to the principles of ALARA. The examination is modestly degraded by motion artifact. Evaluation of the lung parenchyma is degraded by motion artifact. CT DOSE: 159.62 mGy.cm FINDINGS: Thyroid: Imaged portions of the thyroid gland are normal in size and attenuation. Thoracic aorta: The thoracic aorta is normal in caliber and demonstrates standard 3-vessel arch anatomy. No dissection is seen. Pulmonary vasculature: The pulmonary trunk is normal in caliber. There are no filling defects identified in main or lobar pulmonary branches to suggest pulmonary embolus. Evaluation of the peripheral branches is compromised by motion artifact. Heart: The heart is normal in size and without pericardial effusion. Lungs and pleural spaces: Evaluation of the lung parenchyma is compromised by motion artifact. There is minimal patchy/nodular consolidation at the right apex seen on image #159. Lungs are otherwise clear. No pleural effusion is identified. The trachea and central airways are clear. Mediastinum: There is no mediastinal lymphadenopathy. Twyla: Clear. Axillae: There is no axillary lymphadenopathy. Upper abdomen: Partially visualized upper abdominal viscera is within normal limits. Skeletal structures: No lytic or blastic bony lesions are seen. IMPRESSION: 1. Motion compromised examination. 2. There is no evidence of central pulmonary embolus in the main or lobar pulmonary arteries. Evaluation of the peripheral branches is significantly degraded. 3. Minimal patchy consolidative change is seen at the right apex. Correlate clinically for evidence of a mild infectious/inflammatory pneumonitis. Electronically signed by: Jesse Cullen M.D. HEART SCORE: Hx: high/mod/low suspicion: 0 ECG: ST depression/nonspecific changes/normal: 0 Age: Greater than 65/45-64/less than 45: 0 Risk factors: (Hypertension, hyperlipidemia, diabetes, coronary disease, tobacco use, cocaine use): 0 Troponin: Greater than 2 times normal limits/1-2 times normal limits/normal: 1 Total: 1 Consultation: A consultation was placed with the hospitalist. The case was discussed and diagnostics were reviewed. The patient was evaluated in the ER for further treatment. Exam and history seem consistent with pneumonia with elevated troponin which can be concerning for possible myocarditis. Medicine was consulted. Patient started antibiotics. Family is agreeable treatment plan of admission. Patient is immunocompromise. Blood cultures are pending. Lactic acid was negative. EKG was repeated and is unchanged. By the evaluation outlined above emergent etiologies such as aortic dissection, pulmonary embolism, pneumonia, pneumothorax, gastrointestinal, as well as others were deemed relatively unlikely. The pt/MOP informed about the findings as listed above. All questions were answered and pleased with the treatment. Case reviewed with my attending The chart was completed utilizing [employer] Speech voice recognition software. Grammatical errors, random word insertions, pronoun errors, and incomplete sentences are an occassional consequence of this system due to software limitations, ambient noise, and hardware issues. Any formal questions or concerns about the content, text, or information contained within the body of this dictation should be directly addressed to the physician registered nurse first assistant for clarification. Impression & Plan Pneumonia, Elevated troponin Discharge Plan Visit Data Chief Complaint: Cough Stated Complaint: COUGH ED Provider: Clay Esquivel ED Midlevel Provider: Marilin Alejandro Discharge Problem: Pneumonia, Elevated troponin Patient Disposition: Admitted As Inpatient Condition: Good Forms Stand Alone Forms: My [facility] Prescriptions Prescriptions: No Action buspirone 5 mg tablet 5 mg PO BID RF: 0 benzonatate 200 mg capsule 200 mg PO TID PRN (Reason: Cough) RF: 0 pantoprazole 40 mg tablet,delayed release (DR/EC) 40 mg PO DAILY RF: 0 simethicone [Gas Relief] 125 mg tablet,chewable 125 mg PO DIRECTED PRN (Reason: Bloating/Gas Pain) RF: 0 norethindrone acetate 5 mg tablet 5 mg PO DAILY RF: 0 gabapentin 100 mg capsule 200 mg PO QPM RF: 0 fluticasone 50 mcg/actuation spray,suspension 2 spray Intranasal DAILY RF: 0 amoxicillin-pot clavulanate 500-125 mg tablet 1 tab PO TID RF: 0 Referrals Referrals: Belén Bains [Primary Care Provider] -
--- NOTE | 2018-05-11 02:22 | Family Medicine Progress Note ---
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 Community-acquired pneumoniano risk of aspiration, no recent hospitalizations, no TB risk CT showed minimal patchy consolidation in the right apex, without white count or feverpatient may be having under expressed inflammation 2/2 CVIM Treating with ceftriaxone/azithromycin Follow blood and sputum cultures Symptomatic treatments including Mucinex, Tessalon Perles, Flonase Albuterol nebulizer treatments every 4 as needed EKG changes Questionable Q waves in the inferior leads Repeat EKG in the morning Anxiety Continue buspirone Neuropathy? Continue gabapentinpatient and father are unsure why she is on gabapentin GERD Continue PPI Endometriosis Continue control DVT prophylaxis Lovenox CODE STATUS Full FEN Received 1 L normal saline in the ED, regular diet (2) Jocelynn-Taybi syndrome: (3) URI (upper respiratory infection): Subjective 28-year-old female with a past medical history of genetic disease including Kabuki and Rubistein-Taybi Disorders and common variable immune deficiency presents to [facility] with intractable coughing. The enrique ent reports that she has had a cough over the past 3 weeks, but it is gotten worse most recently. The patient typically gets persistent URIs throughout the year, but she never gets fevers because of her immune deficiency. Most recently, 3 weeks ago the patient began to have sore throat, runny nose, cough. At that time, she was seen by her PCP, but was not started on antibiotic. The symptoms persisted and on 05/08/2018 the patient was seen and started on Augmentin. She does report some abdominal pain, but she denies nausea vomiting or diarrhea. She endorses pleuritic chest pain with coughing. She denies productive cough or hemoptysis. No RF for aspiration, HCAP or TB. Review of Systems Full systems reviewed, negative except for mentioned in HPI Physical Exam Vital Signs (Past 24 Hours): Last Vital Signs Temp 36.8 C 05/10/18 20:16 Pulse 130 H 05/10/18 23:50 Resp 21 05/10/18 23:50 BP 132/77 05/10/18 23:50 Pulse Ox 98 05/10/18 23:50 Constitutional: WD/WN, vitals as above Eyes: PERRL, conjunctivae normal, anicteric sclerae ENMT: Clear TMs, red boggy nasal mucosa Neck: trachea midline, no thyromegaly Mildly erythematous posterior pharynx Respiratory: Poor chest wall expansion, audible whoop with cough Cardiovascular: RRR, no murmur, no edema Gastrointestinal (Abdomen): normal bowel sounds, soft, nontender, no hepatosplenomegaly Musculoskeletal: no cyanosis or clubbing, extremities motor strength 5/5 Skin: no rashes, warm and dry Neurologic: patellar DTR's 2+ bilat, sensation intact Results & Data Laboratory Results Laboratory Last Values WBC 9.83 K/uL (4.8-10.8) 05/10/18 21:55 RBC 4.77 M/uL (4.2-5.4) 05/10/18 21:55 Hgb 13.9 g/dL (12.0-16.0) 05/10/18 21:55 Hct 40.4 % (37-47) 05/10/18 21:55 MCV 84.7 fL (80-100) 05/10/18 21:55 MCH 29.1 pg (25-34) 05/10/18 21:55 MCHC 34.4 g/dL (32-36) 05/10/18 21:55 RDW Std Deviation 43.8 fL (36.4-46.3) 05/10/18 21:55 RDW Coeff of Ally 14.0 % (11.5-14.5) 05/10/18 21:55 Plt Count 278 K/uL (130-400) 05/10/18 21:55 MPV 10.0 fL (7.4-10.4) 05/10/18 21:55 Immature Gran % (Auto) 0.3 % 05/10/18 21:55 Neut % (Auto) 61.6 % 05/10/18 21:55 Lymph % (Auto) 23.6 % 05/10/18 21:55 [place] % (Auto) 13.2 % 05/10/18 21:55 Eos % (Auto) 1.2 % 05/10/18 21:55 Baso % (Auto) 0.1 % 05/10/18 21:55 Immature Gran # (Auto) 0.03 K/uL (0.00-0.02) H 05/10/18 21:55 Neut # (Auto) 6.05 K/uL (1.4-6.5) 05/10/18 21:55 Lymph # (Auto) 2.32 K/uL (1.2-3.4) 05/10/18 21:55 [place] # (Auto) 1.30 K/uL (0.11-0.59) H 05/10/18 21:55 Eos # (Auto) 0.12 K/uL (0-0.5) 05/10/18 21:55 Baso # (Auto) 0.01 K/uL (0-0.2) 05/10/18 21:55 ESR > 90 mm/hr (0-21) H 05/10/18 21:55 PT 10.9 Seconds (9.0-12.0) 05/10/18 23:15 INR 1.1 (0.9-1.1) 05/10/18 23:15 APTT 27.6 Seconds (21.0-31.0) 05/10/18 23:15 PTT Ratio 1.0 05/10/18 23:15 Sodium 139 mmol/L (136-145) 05/10/18 21:55 Potassium 3.9 mmol/L (3.5-5.1) 05/10/18 21:55 Chloride 107 mmol/L (98-107) 05/10/18 21:55 Carbon Dioxide 25 mmol/L (21-32) 05/10/18 21:55 Anion Gap 7.0 (3-11) 05/10/18 21:55 BUN 7 mg/dl (7-18) 05/10/18 21:55 Creatinine 0.51 mg/dl (0.6-1.2) L 05/10/18 21:55 Est Cr Clr Drug Dosing 99.4 ml/min 05/10/18 21:55 Est GFR ( Amer) > 150.0 05/10/18 21:55 Est GFR (Non-Af Amer) 129.9 05/10/18 21:55 BUN/Creatinine Ratio 13.0 (10-20) 05/10/18 21:55 Glucose 80 mg/dl (70-99) 05/10/18 21:55 POC Lactic Acid Esau 0.97 mmol/L (0.90-1.70) 05/10/18 22:26 Calcium 9.6 mg/dl (8.5-10.1) 05/10/18 21:55 Total Bilirubin 0.2 mg/dl (0.2-1) 05/10/18 21:55 AST 16 U/L (15-37) 05/10/18 21:55 ALT 30 U/L (12-78) 05/10/18 21:55 Alkaline Phosphatase 76 U/L (45-117) 05/10/18 21:55 POC Troponin I 0.09 ng/ml (0-0.045) H 05/10/18 22:05 Troponin I < 0.015 ng/ml (0-0.045) 05/10/18 23:40 C-Reactive Protein 4.41 mg/dl (0-0.29) H 05/10/18 23:40 Total Protein 8.9 gm/dl (6.4-8.2) H 05/10/18 21:55 Albumin 3.8 gm/dl (3.4-5.0) 05/10/18 21:55 Globulin 5.1 gm/dl (2.5-4.0) H 05/10/18 21:55 Albumin/Globulin Ratio 0.7 (0.9-2) L 05/10/18 21:55 Influenza Type A (PCR) Neg for Influ A (Neg) 05/10/18 21:24 Influenza Type B (PCR) Neg for Influ B (Neg) 05/10/18 21:24 Diagnostic Findings Diagnostics DATE TYPE STATUS AUTHOR Hx 05/10/18 22:35 Jesse Cullen 05/10/18 21:40 Gil Machado Smoker,Kavita 28, F0 1990 REG [facility], [facility] - ED POD A: A12A 4ft 4in 56.1kg BSA: 1.43m BMI: 32.2kg/m Cough Search Chart UNKNOWN 05/10/18 23:50 *from earlier documentation ONSET No H&P reports recorded GENERAL 05/11/18 01:59 SMOKER,KAVITA 28 F 1990 [facility], [place] [phone] CT Scan Report Patient: SMOKER,ESTHERAdmit Date: 05/10/18 MR#: [id number]: [facility] Acct ID:[id number]: Date: 1990ty Zip: [place] [id number] Age: 28Location: ED Sex: F Room/Bed: Att Phy: Diagnosis: COUGH Mayela Phy: Belén Bains C.R.N.PPoornimaService Date: 05/10/18 Fam Phy: Interpreting Phy: Jesse Cullen MD Admit Phy: Ordering Phy: Marilin Alejandro .MARCELLE cc: ~ CT ANGIOGRAM OF THE CHEST CLINICAL HISTORY: Cough and fever. COMPARISON STUDY: Chest x-ray dated 05/10/2018. Chest CT dated 08/31/2013. TECHNIQUE: Following the IV administration of 90 cc of Optiray 320, CT angiogram of the chest was performed from the upper abdomen to the thoracic inlet utilizing the pulmonary embolus protocol. Images are reviewed in the axial, sagittal, and coronal planes. 3-D MIPS images are created and assessed. IV contrast was administered without complication. A dose lowering technique was utilized adhering to the principles of ALARA. The examination is modestly degraded by motion artifact. Evaluation of the lung parenchyma is degraded by motion artifact. CT DOSE: 159.62 mGy.cm FINDINGS: Thyroid: Imaged portions of the thyroid gland are normal in size and attenuation. Thoracic aorta: The thoracic aorta is normal in caliber and demonstrates standard 3-vessel arch anatomy. No dissection is seen. Pulmonary vasculature: The pulmonary trunk is normal in caliber. There are no filling defects identified in main or lobar pulmonary branches to suggest pulmonary embolus. Evaluation of the peripheral branches is compromised by motion artifact. Heart: The heart is normal in size and without pericardial effusion. Lungs and pleural spaces: Evaluation of the lung parenchyma is compromised by motion artifact. There is minimal patchy/nodular consolidation at the right apex seen on image #159. Lungs are otherwise clear. No pleural effusion is identified. The trachea and central airways are clear. Mediastinum: There is no mediastinal lymphadenopathy. Twyla: Clear. Axillae: There is no axillary lymphadenopathy. Upper abdomen: Partially visualized upper abdominal viscera is within normal limits. Skeletal structures: No lytic or blastic bony lesions are seen. IMPRESSION: 1. Motion compromised examination. 2. There is no evidence of central pulmonary embolus in the main or lobar pulmonary arteries. Evaluation of the peripheral branches is significantly degraded. 3. Minimal patchy consolidative change is seen at the right apex. Correlate clinically for evidence of a mild infectious/inflammatory pneumonitis. Electronically signed by: Jesse Cullen M.D. 05/10/2018 11:55 PM Dictated: 05/10/182347 Transcribed: 05/10/182347 [place], [place] [phone] XRay Report Patient: SMOKER,ESTHERAdmit Date: 05/10/18 MR#: [id number]: [address] [facility] Acct ID:[id number]: Date: 1990ty Zip: [place] [address] Age: 28Location: ED Sex: F Room/Bed: Att Phy: Diagnosis: COUGH Mayela Phy: Belén BainsNPalService Date: 05/10/18 Fam Phy: Interpreting Phy: Gil Machado MD Admit Phy: Ordering Phy: Marilin Alejandro PA-C cc: ~ XR chest 2V routine CLINICAL HISTORY: cough/fever COMPARISON STUDY: 07/11/2016 FINDINGS: The cardiac and mediastinal contours remain stable. There is a retrocardiac opacity likely representing a hiatal hernia. There is no failure. There is no focal pulmonary consolidation. There are no pleural effusions.[ IMPRESSION: No active disease in the chest. Electronically signed by: Gil Machado M.D. 05/10/2018 10:41 PM Dictated: 05/10/182239 Transcribed: 05/10/182239 ECG Indication: chest pain Additional Comments: Q waves seen in III, questionable Q waves in other inferior leads Resident Activity Tracking Resident Involvement: Resident Care Provided Care Provided: Adult Hospital Medicine (1) Pneumonia Laterality: unspecified laterality Lung location: unspecified part of lung Pneumonia type: due to unspecified organism Qualified Code(s): J18.9 - Pneumonia, unspecified organism
--- NOTE | 2018-05-11 02:30 | History & Physical Report ---
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 Community-acquired pneumoniano risk of aspiration, no recent hospitalizations, no TB risk CT showed minimal patchy consolidation in the right apex, without white count or feverpatient may be having under expressed inflammation 2/2 CVIM Treating with ceftriaxone/azithromycin Follow blood and sputum cultures Symptomatic treatments including Mucinex, Tessalon Perles, Flonase Albuterol nebulizer treatments every 4 as needed EKG changes Questionable Q waves in the inferior leads Repeat EKG in the morning Anxiety Continue buspirone Neuropathy? Continue gabapentinpatient and father are unsure why she is on gabapentin GERD Continue PPI Endometriosis Continue control DVT prophylaxis Lovenox CODE STATUS Full FEN Received 1 L normal saline in the ED, regular diet (2) Jocelynn-Taybi syndrome: (3) URI (upper respiratory infection): History of Present Illness Primary Care Provider: Belén Bains 28-year-old female with a past medical history of genetic disease including Kabuki and Rubistein-Taybi Disorders and common variable immune deficiency presents to [facility] with intractable coughing. The patient reports that she has had a cough over the past 3 weeks, but it is gotten worse most recently. The patient typically gets persistent URIs throughout the year, but she never gets fevers because of her immune deficiency. Most recently, 3 weeks ago the patient began to have sore throat, runny nose, cough. At that time, she was seen by her PCP, but was not started on antibiotic. The symptoms persisted and on 05/08/2018 the patient was seen and started on Augmentin. She does report some abdominal pain, but she denies nausea vomiting or diarrhea. She endorses pleuritic chest pain with coughing. She denies productive cough or hemoptysis. No RF for aspiration, HCAP or TB. Allergies Allergy/AdvReac Type Severity Reaction Status Date / Time fluconazole Allergy Unknown UNKNOWN Unverified 07/11/16 13:37 Home Medications Home Medications Medication Instructions Recorded Confirmed Type amoxicillin-pot clavulanate 1 tab PO TID 05/10/18 05/10/18 History benzonatate 200 mg PO TID PRN 05/10/18 05/10/18 History buspirone 5 mg PO BID 05/10/18 05/10/18 History fluticasone 2 spray INTRANASAL DAILY 05/10/18 05/10/18 History gabapentin 200 mg PO QPM 05/10/18 05/10/18 History norethindrone acetate 5 mg PO DAILY 05/10/18 05/10/18 History pantoprazole 40 mg PO DAILY 05/10/18 05/10/18 History simethicone [Gas Relief] 125 mg PO DIRECTED PRN 05/10/18 05/10/18 History Past Med/Surg History Medical History Jocelynn-Taybi syndrome (Chronic) Social History Preferred Language: Danish Communication Ability Comment: hx genetic diseases Blow Molder Required: No Current Living Situation: Family Other Information That Helps Us Care for You: No Feels Safe at Home: Yes Smoking Status: Never smoker Hx Alcohol Use: No Hx Substance Use: No Review of Systems Full systems reviewed, negative except for mentioned in HPI Physical Exam Vital Signs (Past 24 Hours): Last Vital Signs Temp 36.8 C 05/10/18 20:16 Pulse 130 H 05/10/18 23:50 Resp 21 05/10/18 23:50 BP 132/77 05/10/18 23:50 Pulse Ox 98 05/10/18 23:50 Constitutional: WD/WN, vitals as above Eyes: PERRL, conjunctivae normal, anicteric sclerae ENMT: Clear TMs, red boggy nasal mucosa Neck: trachea midline, no thyromegaly Respiratory: Poor chest wall expansion, audible whoop with cough Cardiovascular: RRR, no murmur, no edema Gastrointestinal (Abdomen): normal bowel sounds, soft, nontender, no hepatosplenomegaly Musculoskeletal: no cyanosis or clubbing, extremities motor strength 5/5 Skin: no rashes, warm and dry Neurologic: patellar DTR's 2+ bilat, sensation intact Results & Data Laboratory Results Diagnostics DATE TYPE STATUS AUTHOR Hx 05/10/18 22:35 Jesse Cullen 05/10/18 21:40 Gil Machado Smoker,Kavita 28, F0 1990 REG ER, [facility] - ED POD A: A12A 4ft 4in 56.1kg BSA: 1.43m BMI: 32.2kg/m Cough Search Chart UNKNOWN 05/10/18 23:50 *from earlier documentation ONSET No H&P reports recorded GENERAL 05/11/18 01:59 KAVITA POTTS 28 F 1990 [place], [place] [phone] CT Scan Report Patient: KAVITA POTTSAdmit Date: 05/10/18 MR#: [id number]: [address] [facility] Acct ID:[id number]: Date: 1990ty Zip: [place] [address] Age: 28Location: ED Sex: F Room/Bed: Att Phy: Diagnosis: COUGH Mayela Phy: Belén BainsService Date: 05/10/18 Fam Phy: Interpreting Phy: Jesse Cullen MD Admit Phy: Ordering Phy: Marilin Alejandro PA-C cc: ~ CT ANGIOGRAM OF THE CHEST CLINICAL HISTORY: Cough and fever. COMPARISON STUDY: Chest x-ray dated 05/10/2018. Chest CT dated 08/31/2013. TECHNIQUE: Following the IV administration of 90 cc of Optiray 320, CT angiogram of the chest was performed from the upper abdomen to the thoracic inlet utilizing the pulmonary embolus protocol. Images are reviewed in the axial, sagittal, and coronal planes. 3-D MIPS images are created and assessed. IV contrast was administered without complication. A dose lowering technique was utilized adhering to the principles of ALARA. The examination is modestly degraded by motion artifact. Evaluation of the lung parenchyma is degraded by motion artifact. CT DOSE: 159.62 mGy.cm FINDINGS: Thyroid: Imaged portions of the thyroid gland are normal in size and attenuation. Thoracic aorta: The thoracic aorta is normal in caliber and demonstrates standard 3-vessel arch anatomy. No dissection is seen. Pulmonary vasculature: The pulmonary trunk is normal in caliber. There are no filling defects identified in main or lobar pulmonary branches to suggest pulmonary embolus. Evaluation of the peripheral branches is compromised by motion artifact. Heart: The heart is normal in size and without pericardial effusion. Lungs and pleural spaces: Evaluation of the lung parenchyma is compromised by motion artifact. There is minimal patchy/nodular consolidation at the right apex seen on image #159. Lungs are otherwise clear. No pleural effusion is identified. The trachea and central airways are clear. Mediastinum: There is no mediastinal lymphadenopathy. Twyla: Clear. Axillae: There is no axillary lymphadenopathy. Upper abdomen: Partially visualized upper abdominal viscera is within normal limits. Skeletal structures: No lytic or blastic bony lesions are seen. IMPRESSION: 1. Motion compromised examination. 2. There is no evidence of central pulmonary embolus in the main or lobar pulmonary arteries. Evaluation of the peripheral branches is significantly degraded. 3. Minimal patchy consolidative change is seen at the right apex. Correlate clinically for evidence of a mild infectious/inflammatory pneumonitis. Electronically signed by: Jesse Cullen M.D. 05/10/2018 11:55 PM Dictated: 05/10/182347 Transcribed: 05/10/182347 [place], [place] [phone] XRay Report Patient: SMOKER,ESTHERAdmit Date: 05/10/18 MR#: [id number]: [address] [facility] Acct ID:[id number]: Date: 1990[facility] Zip: [place] [address] Age: 28Location: ED Sex: F Room/Bed: Att Phy: Diagnosis: COUGH Mayela Phy: Belén BainsRPoornimaNPalService Date: 05/10/18 [facility] Phy: Interpreting Phy: Gil Machado MD Admit Phy: Ordering Phy: Marilin Alejandro PA-C cc: ~ XR chest 2V routine CLINICAL HISTORY: cough/fever COMPARISON STUDY: 07/11/2016 FINDINGS: The cardiac and mediastinal contours remain stable. There is a retro cardiac opacity likely representing a hiatal hernia. There is no failure. There is no focal pulmonary consolidation. There are no pleural effusions.[ IMPRESSION: No active disease in the chest. Electronically signed by: Gil Machado M.D. 05/10/2018 10:41 PM Dictated: 05/10/182239 Transcribed: 03/15/19 2240 ECG Indication: chest pain Additional Comments: Q waves seen in III, questionable Q waves in other inferior leads Laboratory Last Values WBC 9.83 K/uL (4.8-10.8) 05/10/18 21:55 RBC 4.77 M/uL (4.2-5.4) 05/10/18 21:55 Hgb 13.9 g/dL (12.0-16.0) 05/10/18 21:55 Hct 40.4 % (37-47) 05/10/18 21:55 MCV 84.7 fL (80-100) 05/10/18 21:55 MCH 29.1 pg (25-34) 05/10/18 21:55 MCHC 34.4 g/dL (32-36) 05/10/18 21:55 RDW Std Deviation 43.8 fL (36.4-46.3) 05/10/18 21:55 RDW Coeff of Ally 14.0 % (11.5-14.5) 05/10/18 21:55 Plt Count 278 K/uL (130-400) 05/10/18 21:55 MPV 10.0 fL (7.4-10.4) 05/10/18 21:55 Immature Gran % (Auto) 0.3 % 05/10/18 21:55 Neut % (Auto) 61.6 % 05/10/18 21:55 Lymph % (Auto) 23.6 % 05/10/18 21:55 [place] % (Auto) 13.2 % 05/10/18 21:55 Eos % (Auto) 1.2 % 05/10/18 21:55 Baso % (Auto) 0.1 % 05/10/18 21:55 Immature Gran # (Auto) 0.03 K/uL (0.00-0.02) H 05/10/18 21:55 Neut # (Auto) 6.05 K/uL (1.4-6.5) 05/10/18 21:55 Lymph # (Auto) 2.32 K/uL (1.2-3.4) 05/10/18 21:55 [place] # (Auto) 1.30 K/uL (0.11-0.59) H 05/10/18 21:55 Eos # (Auto) 0.12 K/uL (0-0.5) 05/10/18 21:55 Baso # (Auto) 0.01 K/uL (0-0.2) 05/10/18 21:55 ESR > 90 mm/hr (0-21) H 05/10/18 21:55 PT 10.9 Seconds (9.0-12.0) 05/10/18 23:15 INR 1.1 (0.9-1.1) 05/10/18 23:15 APTT 27.6 Seconds (21.0-31.0) 05/10/18 23:15 PTT Ratio 1.0 05/10/18 23:15 Sodium 139 mmol/L (136-145) 05/10/18 21:55 Potassium 3.9 mmol/L (3.5-5.1) 05/10/18 21:55 Chloride 107 mmol/L (98-107) 05/10/18 21:55 Carbon Dioxide 25 mmol/L (21-32) 05/10/18 21:55 Anion Gap 7.0 (3-11) 05/10/18 21:55 BUN 7 mg/dl (7-18) 05/10/18 21:55 Creatinine 0.51 mg/dl (0.6-1.2) L 05/10/18 21:55 Est Cr Clr Drug Dosing 99.4 ml/min 05/10/18 21:55 Est GFR ( Amer) > 150.0 05/10/18 21:55 Est GFR (Non-Af Amer) 129.9 05/10/18 21:55 BUN/Creatinine Ratio 13.0 (10-20) 05/10/18 21:55 Glucose 80 mg/dl (70-99) 05/10/18 21:55 POC Lactic Acid Esau 0.97 mmol/L (0.90-1.70) 05/10/18 22:26 Calcium 9.6 mg/dl (8.5-10.1) 05/10/18 21:55 Total Bilirubin 0.2 mg/dl (0.2-1) 05/10/18 21:55 AST 16 U/L (15-37) 05/10/18 21:55 ALT 30 U/L (12-78) 05/10/18 21:55 Alkaline Phosphatase 76 U/L (45-117) 05/10/18 21:55 POC Troponin I 0.09 ng/ml (0-0.045) H 05/10/18 22:05 Troponin I < 0.015 ng/ml (0-0.045) 05/10/18 23:40 C-Reactive Protein 4.41 mg/dl (0-0.29) H 05/10/18 23:40 Total Protein 8.9 gm/dl (6.4-8.2) H 05/10/18 21:55 Albumin 3.8 gm/dl (3.4-5.0) 05/10/18 21:55 Globulin 5.1 gm/dl (2.5-4.0) H 05/10/18 21:55 Albumin/Globulin Ratio 0.7 (0.9-2) L 05/10/18 21:55 Influenza Type A (PCR) Neg for Influ A (Neg) 05/10/18 21:24 Influenza Type B (PCR) Neg for Influ B (Neg) 05/10/18 21:24 Supervising Physician Co-Signing Physician Notes Patient seen and examined, chart reviewed, case discussed with Dr. Goff and I agree wtih his assessment as plan as documented above. Briefly, patient is a 28yo female with history of Jocelynn-Taybi syndrome, immunodeficiency presenting with CAP. Symptoms have been persistent with progressive cough x 3 weeks. Also pleuritic CP, sore throat. Recently started on Augmentin for sinusitis by PCP. On exam she is afebrile, tachycardic otherwise HD stable. No respiratory distress. Adequate oxygenation on room air Skin - no rash HEENT - MMM, posterior pharynx without exudate/erythema, s/p cleft palate repair Heart- +S1/S2, regular, tachycardic, no m/r/g Lungs - CTA, no rales/rhonchi/wheezes, severe cough triggered by pulmonary exam Abd - +BS, soft, NT/ND Ext - no edema, Labs and images reviewed. Elevated ESR and CRP. CTA negative for PE, suggests possible RUL PNA, EKG with tachycardia, no acute ischemia Assessment/Plan- Admit to medical floor. Treat with Ceftriaxone/Azithromycin for CAP. Albuterol PRN SOB. Cough suppressants. Repeat EKG and troponin in AM remainder of plan as above Assessment/Plan: 28yo female with Resident Activity Tracking Resident Involvement: Resident Care Provided Care Provided: Adult Hospital Medicine (1) Pneumonia Laterality: unspecified laterality Lung location: unspecified part of lung Pneumonia type: due to unspecified organism Qualified Code(s): J18.9 - Pneumonia, unspecified organism
[2018-05-11] MEDS ORDERED: AZITHROMYCIN 250 MG TAB PO ONE (02:42)
[2018-05-11] MEDS ORDERED: SIMETHICONE 80 MG CHEW PO PRN (03:01)
[2018-05-11] MEDS ORDERED: MAGNESIUM HYDROXIDE SUSP 30 ML UDC PO PRN (03:01)
[2018-05-11] MEDS ORDERED: ALBUTEROL 0.5% NEB SOLN 2.5 MG/0.5 ML VIAL NEB PRN (03:01)
[2018-05-11] MEDS ORDERED: ACETAMINOPHEN 325 MG TAB PO PRN (03:01)
[2018-05-11] MEDS ORDERED: ALUMINUM/MAGNESIUM SUSP 30 ML UDC PO PRN (03:01)
[2018-05-11] MEDS ORDERED: BENZONATATE 100 MG CAPSULE PO PRN (03:01)
[2018-05-11] MEDS ORDERED: cefTRIAXone SODIUM 2,000 MG in DEXTROSE 5% 50 ML IV SCH (04:00)
[2018-05-11 06:16] LABS: Hematocrit (blood only) 39.3 % (37-47); Hemoglobin 13.2 g/dL (12.0-16.0); Immature Granulocytes # (auto) 0.02 K/uL (0.00-0.02); Immature Granulocytes % (auto) 0.2 %; Lymphocytes # (auto) 1.46 K/uL (1.2-3.4); Lymphocytes % (auto) 13.7 %; Mean Corpuscular Hgb Conc 33.6 g/dL (32-36); Mean Corpuscular Volume 85.4 fL (80-100); Mean Platelet Volume 10.4 fL (7.4-10.4); Monocytes # (auto) 0.15 K/uL (0.11-0.59); Monocytes % (auto) 1.4 %; Neutrophils # (auto) 9.04 K/uL (1.4-6.5); Neutrophils % (auto) 84.7 %; Platelet Count 271 K/uL (130-400); RDW Coefficient of Variation 14.1 % (11.5-14.5); RDW Standard Deviation 43.8 fL (36.4-46.3); White Blood Count 10.67 K/uL (4.8-10.8)
[2018-05-11 06:52] LABS: BUN Creatinine Ratio 9.4 (10-20); Creatinine Clr Calc Pharmacy 73.5 ml/min; Est GFR (African American) 136.3; Est GFR (Non-African American) 117.6; Potassium 3.6 mmol/L (3.5-5.1)
[2018-05-11] MEDS ORDERED: IBUPROFEN 200 MG TAB PO STA (08:58)
[2018-05-11] MEDS ORDERED: AZITHROMYCIN 250 MG TAB PO SCH (09:00)
[2018-05-11] MEDS ORDERED: PANTOprazole 40 MG TAB PO SCH (09:00)
[2018-05-11] MEDS ORDERED: guaiFENesin 600 MG TABCR PO SCH (09:00)
[2018-05-11] MEDS ORDERED: ENOXAPARIN INJ 40 MG/0.4 ML SYR SQ SCH (09:00)
[2018-05-11] MEDS ORDERED: FLUTICASONE PROPIONATE NA SPR 16 GM BTL SCH (09:00)
[2018-05-11] MEDS ORDERED: NORETHINDRONE 5 MG TAB PO SCH (09:00)
[2018-05-11 09:37] LABS: D Dimer 2220 ug/L FEU (0-500)
[2018-05-11 09:52] LABS: Appearance Urine Clear (Clear); Bilirubin Urine Negative (Negative); Blood Urine Negative (Negative); Color Urine Yellow; Glucose Urine UA 3+ (Negative); Ketones Urine Negative (Negative); Leukocyte Esterase Urine Negative (Negative); Nitrite Urine Negative (Negative); Protein Urine Negative (Negative); Specific Gravity Urine 1.024 (1.000-1.030); Urobilinogen Urine Negative (Negative); pH Urine 6.5 (4.5-7.5)
--- NOTE | 2018-05-11 11:21 | Ultrasound Report ---
ULTRASOUND LEFT LOWER EXTREMITY VENOUS CLINICAL HISTORY: Elevated d-dimer. COMPARISON STUDY: Left lower extremity venous ultrasound dated 05/23/2008. TECHNIQUE: Real-time, grayscale, and color Doppler sonography of the deep veins of the left lower ext remity was performed from the inguinal crease to the calf. Compression and augmentation were utilized . FINDINGS: There is no sonographic evidence of deep venous thrombosis identified in the left lower ext remity. The common femoral, superficial femoral, and popliteal veins are patent and normally compress ible. The greater saphenous vein and the profunda femoris vein at the junction with the common femora l vein are clear. The visualized calf veins are patent. IMPRESSION: There is no sonographic evidence of deep venous thrombosis identified in the left lower e xtremity. Electronically signed by: Jesse Cullen M.D. 05/11/2018 11:20 AM
[2018-05-11] MEDS ORDERED: PROMETHAZINE HCL 12.5 MG/10 ML UDP PO PRN (12:04)
[2018-05-11 12:44] LABS: Estimated Average Glucose 123 mg/dl; Hemoglobin A1C 5.9 % (4.5-5.6)
[2018-05-11 15:13] VITALS: BP 114/72; PULSE 106; TEMP 97.7; O2SAT 98
--- NOTE | 2018-05-11 15:14 | XRay Report ---
ABDOMEN 2 VIEWS CLINICAL HISTORY: Generalized abdominal pain. FINDINGS: Supine and erect abdominal radiographs are compared to study dated 01/31/2016 and correlated with abdominal CT dated 08/25/2013. There is a nonobstructed abdominal bowel gas pattern. Mild coloni c fecal retention is observed. Scattered air-fluid levels are noted in the right colon on the upright view. No evidence of intraperitoneal free air is seen. There are no abnormal abdominal calcification s. Surgical clips are noted in the pelvis. The bony structures appear intact. The lung bases are irasema r as imaged. IMPRESSION: 1. Nonobstructed bowel gas pattern. 2. Scattered air-fluid levels are noted in the right colon on the upright view. Correlate clinically for evidence of a nonspecific enterocolitis. Electronically signed by: Jesse Cullen M.D. 05/11/2018 3:12 PM
--- NOTE | 2018-05-11 15:24 | Discharge Summary ---
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 The patient reports that she has had a cough over the past 3 weeks, but it is gotten worse most recently. The patient typically gets persistent URIs throughout the year, but she never gets fevers because of her immune deficiency. Most recently, 3 weeks ago the patient began to have sore throat, runny nose, cough. At that time, she was seen by her PCP, but was not started on antibiotic. The s ymptoms persisted and on 05/08/2018 the patient was seen and started on Augmentin. She does report some abdominal pain, but she denies nausea vomiting or diarrhea. She endorses pleuritic chest pain with coughing. She denies productive cough or hemoptysis. No RF for aspiration, HCAP or TB. Admission Exam Per Admitting Provider Constitutional: WD/WN, vitals as above Eyes: PERRL, conjunctivae normal, anicteric sclerae ENMT: Clear TMs, red boggy nasal mucosa Neck: trachea midline, no thyromegaly Respiratory: Poor chest wall expansion, audible whoop with cough Cardiovascular: RRR, no murmur, no edema Gastrointestinal (Abdomen): normal bowel sounds, soft, nontender, no hepatosplenomegaly Musculoskeletal: no cyanosis or clubbing, extremities motor strength 5/5 Skin: no rashes, warm and dry Neurologic: patellar DTR's 2+ bilat, sensation intact Principal Diagnosis Pneumonia Discharge Exam General: Alert, oriented. No acute distress HEENT: NC/AT, oropharynx moist. Chest: Nontender to palpation. CV: RRR, tachycardic Resp: Breath sounds clear bilaterally, no increased effort of breathing. Abdomen: BS+. Soft, diffusely tender to palpation, nondistended. No guarding. No organomegaly appreciated. Extremities: No edema. 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 Community-acquired pneumoniano risk of aspiration, no recent hospitalizations, no TB risk CT showed minimal patchy consolidation in the right apex, without white count or feverpatient may be having under expressed inflammation 2/2 her immunodeficiency diagnosis. Treated with ceftriaxone/azithromycin. Discharged with Augmentin due to qtc of 490 on one EKG. Final EKG before discharge showed qtc of 473. Blood and sputum cultures pending upon discharge. Will followup with results. Symptomatic treatments including Mucinex, Tessalon Perles, Flonase while hospitalized for her cough. Discharged with Hycodan. Albuterol nebulizer treatments were given every 4hrs as needed. EKG changes -sinus tachcardia Questionable Q waves in the inferior leads, Repeat EKG showed fusion complexes and lateral lead changes. Final EKG before discharge showed resolution of fusion complexes. -Troponins negative -Recommend close PCP followup after discharge. Elevated D-dimer - Pt had a wells score of 1 for left calf tenderness and tenderness along the vascular distribution. D-dimer was ordered and it was elevated to 2220. Left leg venous doppler showed NO evidence of DVT. CTA previously ordered showed NO evidence of PEs. Pt refused heparin shot for DVT prophylaxis while hospitalized. Close followup with PCP recommended upon discharge. Elevated sugars, hgA1c -Pt's random glucose after admission was 276. Trace glucose in urine. HgbA1c was 5.9. followup with PCP recommended upon discharge. Nausea -Pt had nausea and had phenergan ordered as needed instead of zofran out of concern for a a qtc slightly under 500 (490 at one point). Close followup with PCP recommended. Abdominal Pain -Pt stated she had diffuse abdominal pain and abdominal xray suggested an enterocolitis. Close followup with her PCP is recommended upon discharge. Anxiety buspirone was continued. Neuropathy? Patient and father are unsure why she is on gabapentin. It was continued. GERD PPI was continued. Endometriosis control was continued. (2) Jocelynn-Taybi syndrome: (3) URI (upper respiratory infection): Total Time Total Time Spent Total Time Spent (In Minutes): 60 Discharge Plan Discharge Items Patient Disposition: Home - Self-Care Reason For Visit: PNEUMONIA Discharge Diagnosis: Pneumonia Condition: Good Discharge Goals: Decrease discomfort and Improve disease control Activity: Per 'Additional Instructions' section Non-emergency contact: Primary Care Provider Call non-emergency contact if: you have any medication questions and you have a fever Follow-up/Referrals: Belén Bains [Primary Care Provider] - Diet: Regular Addtl Provider Instructions: You were admitted out of concern for a pneumonia given your history of common variable immune deficiency. -You came in with cough and it was noted on the CT that there was some patchy consolidation in the apex of your lung. You did not have a fever but did have a cough. We treated you with an antibiotic and cough medication. We tested your blood as well for any infections and will follow up after discharge with those results. -We are discharging you with an antibiotic Augmentin to continue taking at home. We will also discharge you with a medication Hycodan to help with your cough. Hycodan makes you very sleepy so it might be better to use close to bedtime. Also do not drive or operate heavy machinery after taking it. Please followup with your PCP in the next week. Please go to the nearest emergency room should you feel like you cannot breather or should your symptoms worsen. Prescriptions: New amoxicillin-pot clavulanate [Augmentin] 875-125 mg tablet 1 tab PO BID 5 Days Qty: 10 RF: 0 hydrocodone-guaifenesin 2.5-200 mg/5 mL solution 10 ml PO Q6H PRN (Reason: cough) 7 Days Qty: 280 RF: 0 Continued buspirone 5 mg tablet 5 mg PO BID RF: 0 benzonatate 200 mg capsule 200 mg PO TID PRN (Reason: Cough) RF: 0 pantoprazole 40 mg tablet,delayed release (DR/EC) 40 mg PO DAILY RF: 0 simethicone [Gas Relief] 125 mg tablet,chewable 125 mg PO DIRECTED PRN (Reason: Bloating/Gas Pain) RF: 0 norethindrone acetate 5 mg tablet 5 mg PO DAILY RF: 0 gabapentin 100 mg capsule 200 mg PO QPM RF: 0 fluticasone 50 mcg/actuation spray,suspension 2 spray Intranasal DAILY RF: 0 Discontinued amoxicillin-pot clavulanate 500-125 mg tablet 1 tab PO TID RF: 0 Stand-Alone Forms: My [facility] Discharge Orders: Discharge Order (Routine); Ordered 05/11/18 Ordered By: Julissa Spicer Admission Data Admit Date/Time: 05/11/18 02:32 Attending Provider: Jocelyne Hernandez Admit Provider: Misha Goff Primary Care Provider: Belén Bains Other Providers: Ayanna Shipley Service: Telemetry Medical Other Interventions: Discharge Summary Assessment (RN) Last Done: 05/11/18 14:56 DC Date/Time DO NOT enter until pt leaves facility: 05/11/18 16:09 Supervising Physician Co-Signing Physician Notes Resident Physician Supervision Note: I independently interviewed and examined the patient and verified the davis history and physical, reviewed labs and image studies, discussed the case with the resident Dr. Spicer and agree with the findings and care plan. Time spent in discharge 40min
[2018-05-11] MEDS ORDERED: PROMETHAZINE HCL SYRUP 6.25 MG/5 ML PO PRN (15:56)
[2018-05-11] MEDS ORDERED: GABAPENTIN 100 MG CAP PO SCH (21:00)
== END 2018-05-11 16:09 | disposition home or self-care (01) ==
LOC: ED 20:06 → 2N 20:06 → SUATTDRO 05-11 02:32 → 2N 05-11 02:41

== ENCOUNTER 2019-06-06 17:45 | Observation (INO) ==
[2019-06-06] MEDS ORDERED: GI COCKTAIL ED USE PO ONE (18:09)
[2019-06-06] MEDS ORDERED: SUCRALFATE 1 GM TAB PO STA (18:09)
[2019-06-06] MEDS ORDERED: FAMOTIDINE 40 MG TABLET PO ONE (18:09)
[2019-06-06] MEDS ORDERED: ACETAMINOPHEN 1,000 MG/100 ML VIAL IV STA (18:10)
--- NOTE | 2019-06-06 18:10 | Emergency Department Note ---
History of Present Illness General Chief complaint: Chest Pain Stated complaint: CHEST PAIN Time Seen by Provider: 06/06/19 17:59 Source: patient, family (father), RN notes reviewed and old records reviewed Mode of arrival: ambulatory Limitations: physical limitation History of Present Illness Provider complaint: chest pain Onset (ago): day(s) 1 Location: chest Radiation: non-radiation Severity: severe Pain Consistency: + constant Maximum Pain Intensity: 10 Current Pain Intensity: 10 Quality: + aching Relieved By: + none Exacerbated By: + movement and + other Associated symptoms: + denies other symptoms Treatments prior to arrival: other (antacid) This is a 29-year-old female who presents emergency department complaining of chest pain that started last evening. The patient has a history of acid reflux and the patient tried taking antacids prior to coming into the emergency department with no relief. I will note that the patient was here in February for similar chest pain. The patient was on Eliquis back in February for a DVT however she is no longer taking it. She has a history of open heart surgery when she was younger. The patient notes that it hurts worse to take a deep breath. Moving her arms also causes the chest pain to worsen. Home Medications Home Medications Medication Instructions Recorded Confirmed Type fluticasone propionate 2 spray INTRANASAL HS PRN 05/10/18 06/06/19 History gabapentin 200 mg PO HS 05/10/18 06/06/19 History norethindrone acetate 10 mg PO HS 05/10/18 06/06/19 History pantoprazole 40 mg PO HS 05/10/18 06/06/19 History lurasidone [Latuda] 20 mg PO HS 02/23/19 06/06/19 History Ivig 0 mg IV MONTHLY 04/18/19 06/06/19 History ibuprofen 200 mg PO Q6H PRN 04/18/19 06/06/19 History buspirone 15 mg PO BID 05/20/19 06/06/19 History acetaminophen [Tylenol Extra 1,000 mg PO Q6H PRN 05/22/19 06/06/19 History Strength] amoxicillin-pot clavulanate 1 tab PO Q12 06/06/19 06/06/19 History [Augmentin] ascorbic acid (vitamin C) [Vitamin 1 g PO DAILY 06/06/19 06/06/19 History C] [id number] 2 tab PO Q6H PRN 06/06/19 06/06/19 History [Excedrin Extra Strength] Allergies Allergy/AdvReac Type Severity Reaction Status Date / Time amoxicillin Allergy Unknown Rash Verified 05/22/19 05:24 fluconazole Allergy Unknown Unknown Verified 05/22/19 05:24 Past Med/Surg History Medical History Deep vein thrombosis, upper right extremity H. pylori infection (Acute) Kabuki syndrome Jocelynn-Taybi syndrome (Chronic) Surgical History H/O myringotomy (Resolved) Social History Preferred Language: Sami [employer] Required: No Current Living Situation: Family Feels Safe at Home: Yes Smoking Status: Never smoker Hx Alcohol Use: No Hx Substance Use: No Review of Systems A total of 10 systems reviewed and were otherwise negative Physical Exam Vital Signs Vital Signs - 24 hr 06/06/19 17:46 06/06/19 18:05 06/06/19 18:29 Temperature 36.7 C Temperature Source Oral Pulse Rate 96 H Pulse Rate from SpO2 Sensor Respiratory Rate 20 Respiratory Effort / Characteristics Non-Labored Respiratory Depth Normal Blood Pressure 131/74 Blood Pressure Mean 93 Pulse Oximetry 98 Oxygen Delivery Method Room Air Room Air Room Air Sepsis Recent Fever Within 48 Hours No Sepsis New/Unexplained Change in Mental Status No Sepsis Action Taken by Nursing No Action Required 06/06/19 18:30 06/06/19 21:00 06/06/19 22:00 Temperature Temperature Source Pulse Rate 102 H 103 H Pulse Rate from SpO2 Sensor 102 H 102 H Respiratory Rate 23 24 Respiratory Effort / Characteristics Respiratory Depth Blood Pressure 138/85 120/87 Blood Pressure Mean 106 112 Pulse Oximetry 98 98 Oxygen Delivery Method Room Air Room Air Room Air Sepsis Recent Fever Within 48 Hours Sepsis New/Unexplained Change in Mental Status Sepsis Action Taken by Nursing 06/06/19 23:00 Temperature Temperature Source Pulse Rate 102 H Pulse Rate from SpO2 Sensor 102 H Respiratory Rate 19 Respiratory Effort / Characteristics Respiratory Depth Blood Pressure 116/86 Blood Pressure Mean 96 Pulse Oximetry 97 Oxygen Delivery Method Room Air Sepsis Recent Fever Within 48 Hours Sepsis New/Unexplained Change in Mental Status Sepsis Action Taken by Nursing GENERAL: Patient is a healthy-appearing well-nourished female HEAD: Normocephalic atraumatic EYES: Ocular movements intact pupils equal and react to light OROPHARYNX mucous membranes are moist no exudates present no erythema or edema present NECK: Supple no nuchal rigidity CHEST: Good equal expansion, chest pain reproducible on palpation LUNGS: Clear and equal to auscultation CARDIAC: Normal S1 and S2 ABDOMEN: Soft nontender no guarding BACK: No CVA tenderness EXTREMITIES: No pain upon palpation normal muscle strength in all groups no clubbing cyanosis or edema NEURO: Patient is following commands is answering questions appropriately. Alert and oriented x3 Cranial Nerves 2-12 grossly intact Course Administered Medications Discontinued Medications Al Hydrox/Mg Hydrox/Simethicone () 1 dose PO ONE ONE Stop: 06/06/19 18:10 Last Admin: 06/06/19 19:48 Dose: 1 dose Documented by: [id number] Famotidine (Pepcid) 40 mg PO NOW ONE Stop: 06/06/19 18:10 Last Admin: 06/06/19 19:46 Dose: 40 mg Documented by: [id number] Famotidine (Pepcid) Confirm Administered Dose 40 mg .ROUTE .STK-MED ONE Stop: 06/06/19 19:45 Last Admin: 06/06/19 19:47 Dose: Not Given Documented by: [id number] Acetaminophen (Ofirmev) 1,000 mg in 100 mls @ 400 mls/hr IV NOW STA Stop: 06/06/19 18:24 Last Infusion: 06/06/19 20:05 Dose: 0 mls/hr Documented by: [id number] Admin: 06/06/19 19:40 Dose: 400 mls/hr Documented by: [id number] Sodium Chloride (Nss 1000ml) 1,000 mls @ 999 mls/hr IV .Q1H1M ONE Stop: 06/06/19 20:18 Last Infusion: 06/06/19 20:37 Dose: 0 mls/hr Documented by: [id number] Admin: 06/06/19 19:36 Dose: 999 mls/hr Documented by: [id number] Sodium Chloride (Nss 1000ml) 500 mls @ 999 mls/hr IV .Q31M ONE Stop: 06/06/19 20:13 Last Infusion: 06/06/19 21:11 Dose: 0 mls/hr Documented by: [id number] Admin: 06/06/19 20:40 Dose: 999 mls/hr Documented by: [id number] Ketorolac Tromethamine (Toradol) 30 mg IV NOW STA Stop: 06/06/19 19:19 Last Admin: 06/06/19 19:36 Dose: 30 mg Documented by: [id number] Ondansetron HCl (Zofran) 4 mg IV NOW STA Stop: 06/06/19 19:57 Last Admin: 06/06/19 20:10 Dose: 4 mg Documented by: [id number] Sucralfate (Carafate Tab) 1 gm PO NOW STA Stop: 06/06/19 18:10 Last Admin: 06/06/19 19:43 Dose: 1 gm Documented by: [id number] Medical Decision Making Differential Diagnosis Cardiac ischemia, aortic dissection, pulmonary embolism, pneumothorax, pneumonia, pericarditis, myocarditis, esophageal rupture, GERD, cholecystitis, pancreatitis, musculoskeletal, as well as other pathologies. Medical Records Attestation: I reviewed the patient's medical records. Home Medications Current Medication List: was personally reviewed by me Laboratory Data Attestation: I reviewed the patient's lab results. Result diagrams: 06/06/19 18:44 06/06/19 18:44 Lab Results 06/06/19 06/06/19 06/06/19 Range/Units 18:44 18:44 18:44 WBC 7.43 (4.8-10.8) K/uL RBC 5.11 (4.2-5.4) M/uL Hgb 13.5 (12.0-16.0) g/dL Hct 40.7 (37-47) % MCV 79.6 L (80-100) fL MCH 26.4 (25-34) pg MCHC 33.2 (32-36) g/dL RDW Std Deviation 45.2 (36.4-46.3) fL RDW Coeff of Ally 15.6 H (11.5-14.5) % Plt Count 356 (130-400) K/uL MPV 10.3 (7.4-10.4) fL Immature Gran % (Auto) 0.1 % Neut % (Auto) 55.3 % Lymph % (Auto) 34.1 % [place] % (Auto) 10.1 % Eos % (Auto) 0.3 % Baso % (Auto) 0.1 % Immature Gran # (Auto) 0.01 (0.00-0.02) K/uL Neut # (Auto) 4.11 (1.4-6.5) K/uL Lymph # (Auto) 2.53 (1.2-3.4) K/uL [place] # (Auto) 0.75 H (0.11-0.59) K/uL Eos # (Auto) 0.02 (0-0.5) K/uL Baso # (Auto) 0.01 (0-0.2) K/uL PT 11.4 (9.0-12.0) Seconds INR 1.1 (0.9-1.1) APTT 28.0 (21.0-31.0) Seconds PTT Ratio 1.0 D-Dimer 1230 H* (0-500) ug/L FEU Sodium 136 (136-145) mmol/L Potassium 3.9 (3.5-5.1) mmol/L Chloride 105 (98-107) mmol/L Carbon Dioxide 26 (21-32) mmol/L Anion Gap 5.0 (3-11) BUN 9 (7-18) mg/dl Creatinine 0.70 (0.6-1.2) mg/dl Est Cr Clr Drug Dosing Not Reportable Est GFR ( Amer) 134.8 Est GFR (Non-Af Amer) 116.3 BUN/Creatinine Ratio 13.1 (10-20) Glucose 85 (70-99) mg/dl Calcium 9.2 (8.5-10.1) mg/dl Total Bilirubin 0.3 (0.2-1) mg/dl AST 15 (15-37) U/L ALT 33 (12-78) U/L Alkaline Phosphatase 73 (45-117) U/L Total Creatine Kinase 37 (26-192) U/L CK-MB (CK-2) < 1.0 (0.5-3.6) ng/ml CK/CKMB % Calc TNP Troponin I < 0.015 (0-0.045) ng/ml Total Protein 9.1 H (6.4-8.2) gm/dl Albumin 3.9 (3.4-5.0) gm/dl Globulin 5.2 H (2.5-4.0) gm/dl Albumin/Globulin Ratio 0.8 L (0.9-2) Lipase 214 (73-393) U/L 06/06/19 Range/Units 20:09 WBC (4.8-10.8) K/uL RBC (4.2-5.4) M/uL Hgb (12.0-16.0) g/dL Hct (37-47) % MCV (80-100) fL MCH (25-34) pg MCHC (32-36) g/dL RDW Std Deviation (36.4-46.3) fL RDW Coeff of Ally (11.5-14.5) % Plt Count (130-400) K/uL MPV (7.4-10.4) fL Immature Gran % (Auto) % Neut % (Auto) % Lymph % (Auto) % [place] % (Auto) % Eos % (Auto) % Baso % (Auto) % Immature Gran # (Auto) (0.00-0.02) K/uL Neut # (Auto) (1.4-6.5) K/uL Lymph # (Auto) (1.2-3.4) K/uL [place] # (Auto) (0.11-0.59) K/uL Eos # (Auto) (0-0.5) K/uL Baso # (Auto) (0-0.2) K/uL PT (9.0-12.0) Seconds INR (0.9-1.1) APTT (21.0-31.0) Seconds PTT Ratio D-Dimer (0-500) ug/L FEU Sodium (136-145) mmol/L Potassium (3.5-5.1) mmol/L Chloride (98-107) mmol/L Carbon Dioxide (21-32) mmol/L Anion Gap (3-11) BUN (7-18) mg/dl Creatinine (0.6-1.2) mg/dl Est Cr Clr Drug Dosing Est GFR ( Amer) Est GFR (Non-Af Amer) BUN/Creatinine Ratio (10-20) Glucose (70-99) mg/dl Calcium (8.5-10.1) mg/dl Total Bilirubin (0.2-1) mg/dl AST (15-37) U/L ALT (12-78) U/L Alkaline Phosphatase (45-117) U/L Total Creatine Kinase (26-192) U/L CK-MB (CK-2) (0.5-3.6) ng/ml CK/CKMB % Calc Troponin I < 0.015 (0-0.045) ng/ml Total Protein (6.4-8.2) gm/dl Albumin (3.4-5.0) gm/dl Globulin (2.5-4.0) gm/dl Albumin/Globulin Ratio (0.9-2) Lipase (73-393) U/L Imaging Data Radiologist's Impression: [place] [phone] XRay Report Patient: WILBER POTTS Admit Date: 06/06/19 MR#: [id number] Address1: [address] [place] [address] Acct ID:[id number] Address2: Date: 1990 [facility] Zip: [place] [address] Age: 29 Location: ED Sex: F Room/Bed: Att Phy: Diagnosis: CHEST PAIN Mayela Phy: Belén Bains Service Date: 06/06/19 Fam Phy: Interpreting Phy: Jesse Cullen MD Admit Phy: Ordering Phy: Clay Uriarte MD cc: ~ SINGLE VIEW CHEST CLINICAL HISTORY: Atypical chest pain. FINDINGS: An AP, portable, upright chest radiograph is compared to study dated 05/22/2019. Correlation is made with chest CT dated 05/10/2018. The examination is degraded by portable technique and patient rotation. The cardiomediastinal silhouette is unremarkable. There are low lung volumes. No airspace consolidation or large pleural effusion is identified. No pneumothorax is seen. The bony thorax is grossly intact. IMPRESSION: No active disease in the chest. ACT 112: Negative or not required by law. Electronically signed by: Jesse Cullen M.D. 06/06/2019 6:27 PM Dictated: 06/06/191825 Transcribed: 06/06/191825 ECG Data Indication: chest pain Rate (beats per minute): 88 Rhythm: normal sinus Findings: + Q waves (Inferior) and + RBBB (incomplete); no ST depression and no ST elevation Comparison ECG Date: from (04/18/2019) Change: no significant change Prescription Drug Monitoring [place] Drug Monitoring Program reviewed and no issues identified Blood Pressure Blood Pressure Findings: Elevated blood pressure Blood Pressure Disposition: elevated BP felt to be situational MDM Narrative This is a 29-year-old female who presents emergency department complaining of chest pain. I will note that the patient had a DVT diagnosed in February and her anticoagulation was stopped. Serial EKGs were performed here in the emergency department along with serial troponins however the patient's chest pain remained. She was given a GI cocktail Pepcid and Carafate as well as Tylenol for her pain with no improvement in her symptoms. The patient has a significant history and I am concerned that she is a had poor follow-up since February. Because of this I did discuss the case with the hospitalist service. In the meantime I did attempt to place a central line however due to patient noncooperation I was unable to place the line. Impression & Plan Chest pain, D-dimer, elevated Discharge Plan Visit Data Chief Complaint: Chest Pain Stated Complaint: CHEST PAIN ED Provider: Clay Uriarte Discharge Problem: Chest pain, D-dimer, elevated Forms Stand Alone Forms: My [facility] Prescriptions Prescriptions: No Action pantoprazole 40 mg tablet,delayed release (DR/EC) 40 mg PO HS RF: 0 norethindrone acetate 5 mg tablet 10 mg PO HS RF: 0 gabapentin 100 mg capsule 200 mg PO HS RF: 0 fluticasone propionate 50 mcg/actuation spray,suspension 2 spray Intranasal HS PRN (Reason: Allergy Symptoms) RF: 0 Latuda 20 mg tablet 20 mg PO HS RF: 0 ibuprofen 200 mg Tablet 200 mg PO Q6H PRN (Reason: Pain) RF: 0 Ivig 0 mg IV MONTHLY RF: 0 acetaminophen [Tylenol Extra Strength] 500 mg Tablet 1,000 mg PO Q6H PRN (Reason: Fever Or Pain) RF: 0 buspirone 15 mg tablet 15 mg PO BID RF: 0 ascorbic acid (vitamin C) [Vitamin C] 1,000 mg Tablet 1 g PO DAILY RF: 0 Excedrin Extra Strength 250-250-65 mg Tablet 2 tab PO Q6H PRN (Reason: Pain) RF: 0 amoxicillin-pot clavulanate [Augmentin] 875-125 mg tablet 1 tab PO Q12 RF: 0 Discharge Problem: Chest pain Qualifiers: Chest pain type: unspecified Qualified Code(s): R07.9 - Chest pain, unspecified
--- NOTE | 2019-06-06 18:29 | XRay Report ---
SINGLE VIEW CHEST CLINICAL HISTORY: Atypical chest pain. FINDINGS: An AP, portable, upright chest radiograph is compared to study dated 05/22/2019. Correlation is made with chest CT dated 05/10/2018. The examination is degraded by portable technique and patient rotation. The cardiomediastinal silhouette is unremarkable. There are low lung volumes. No airspac e consolidation or large pleural effusion is identified. No pneumothorax is seen. The bony thorax is grossly intact. IMPRESSION: No active disease in the chest. ACT 112: Negative or not required by law. Electronically signed by: Jesse Cullen M.D. 06/06/2019 6:27 PM
[2019-06-06 18:56] LABS: Basophils # (auto) 0.01 K/uL (0-0.2); Basophils % (auto) 0.1 %; Eosinophils # (auto) 0.02 K/uL (0-0.5); Eosinophils % (auto) 0.3 %; Hematocrit (blood only) 40.7 % (37-47); Hemoglobin 13.5 g/dL (12.0-16.0); Immature Granulocytes # (auto) 0.01 K/uL (0.00-0.02); Immature Granulocytes % (auto) 0.1 %; Lymphocytes # (auto) 2.53 K/uL (1.2-3.4); Lymphocytes % (auto) 34.1 %; Mean Corpuscular Hemoglobin 26.4 pg (25-34); Mean Corpuscular Hgb Conc 33.2 g/dL (32-36); Mean Corpuscular Volume 79.6 fL (80-100); Mean Platelet Volume 10.3 fL (7.4-10.4); Monocytes # (auto) 0.75 K/uL (0.11-0.59); Monocytes % (auto) 10.1 %; Neutrophils # (auto) 4.11 K/uL (1.4-6.5); Neutrophils % (auto) 55.3 %; Platelet Count 356 K/uL (130-400); RDW Coefficient of Variation 15.6 % (11.5-14.5); RDW Standard Deviation 45.2 fL (36.4-46.3); Red Blood Count 5.11 M/uL (4.2-5.4); White Blood Count 7.43 K/uL (4.8-10.8)
[2019-06-06 19:08] LABS: INR 1.1 (0.9-1.1); Prothrombin Time 11.4 Seconds (9.0-12.0)
[2019-06-06 19:10] LABS: D Dimer 1230 ug/L FEU (0-500)
[2019-06-06 19:13] LABS: Alanine Aminotransferase 33 U/L (12-78); Albumin Level 3.9 gm/dl (3.4-5.0); Aspartate Aminotransferase 15 U/L (15-37); BUN Creatinine Ratio 13.1 (10-20); Blood Urea Nitrogen 9 mg/dl (7-18); Calcium 9.2 mg/dl (8.5-10.1); Carbon Dioxide 26 mmol/L (21-32); Chloride 105 mmol/L (98-107); Est GFR (African American) 134.8; Est GFR (Non-African American) 116.3; Glucose 85 mg/dl (70-99); Lipase 214 U/L (73-393); Potassium 3.9 mmol/L (3.5-5.1); Sodium 136 mmol/L (136-145)
[2019-06-06 19:18] LABS: Albumin Globulin Ratio 0.8 (0.9-2); Alkaline Phosphatase 73 U/L (45-117); Bilirubin,Total 0.3 mg/dl (0.2-1); Creatine Kinase 37 U/L (26-192); Creatine Kinase MB < 1.0 ng/ml (0.5-3.6); Globulin 5.2 gm/dl (2.5-4.0); Total Protein 9.1 gm/dl (6.4-8.2); Troponin I < 0.015 ng/ml (0-0.045)
[2019-06-06] MEDS ORDERED: KETOROLAC 30 MG/ML VIAL IV STA (19:18)
[2019-06-06] MEDS ORDERED: SODIUM CHLORIDE 0.9% 1000ML 1,000 ML IV ONE (19:18)
[2019-06-06] MEDS ORDERED: SODIUM CHLORIDE 0.9% 1000ML 500 ML IV ONE (19:43)
[2019-06-06] MEDS ORDERED: FAMOTIDINE 20 MG TAB ONE (19:44)
[2019-06-06] MEDS ORDERED: ONDANSETRON INJ 2 MG/ML 2 ML VIAL IV STA (19:56)
--- NOTE | 2019-06-06 23:11 | History & Physical Report ---
Date of Service June 06, 2019 Assessment & Plan (1) Deep vein thrombosis (DVT) of left upper extremity: DVT of left upper extremity involving 1 branch of the left brachial vein- Initially demonstrated on 02/21/2019. Had briefly been on Eliquis but that was discontinued by outpatient service. D-dimer continue to be elevated, but less so than previous visit, and venous Dopplers with again demonstrate no DVT in bilateral lower extremities, but does have a left upper extremity as noted. VQ scan performed on 03/07/2019 was negative. In the emergency department today, as at previous visits, a large enough bore IV to get a CTA for PE was not able to be obtained, therefore, the patient was r eferred for evaluation for admission to further assess for chest pain. A repeat VQ scan has been ordered for the morning. Present on Admission?: Yes (2) Chest pain: Differential is PE versus cardiac versus GI. Patient reportedly had some form of cardiac surgery as a child. Will order an echocardiogram, and ask cardiology to assess. Present on Admission?: Yes (3) Kabuki syndrome: Noted Present on Admission?: Yes (4) Jocelynn-Taybi syndrome: Noted Present on Admission?: Yes (5) Palpitations: Patient does report chest discomfort when she has had sensation of palpitations, however, there were no abnormalities noted in the ED. She will be admitted to monitored bed for further assessment and echocardiogram as noted with cardiology consult Present on Admission?: Yes Admission and Anticipated Discharge Date Admission Date: 06/06/2019 Anticipated date of discharge: 06/07/19 History of Present Illness Chief Complaint: The patient presents to the emergency department, with the father present, with complaint of recurrent precordial chest discomfort that started earlier in evening prior to arrival. Primary Care Provider: Belén Bains The patient is a 29-year-old female with a past medical history including left upper extremity DVT, kabuki syndrome, H. pylori infection, pneumonia, Jocelynn-Taybi syndrome, mesenteric adenitis, lower GI bleeding and previously elevated d-dimer. She presents the emergency department with complaint of recurrent precordial chest pain that was not relieved by taking antacids. She was seen in the emergency department on 02/23/2019 with similar symptoms and findings at that time. 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 She continues to have negative bilateral lower extremity venous Dopplers on both those dates. She has had this pain ongoing for the past 4 weeks, but feels it may be a little bit worse today, which prompted her visit to the ED with her father. She had been on Eliquis upon discharge from last emergency department visit, however, this was discontinued by her outpatient PCP. The patient does complain of palpitations, and had a feeling earlier that her heart was racing when she was having the chest discomfort more intensely. She does have a history of some form of cardiac surgery as a child, associated with her kabuki syndrome and Jocelynn-Taybi syndrome. The patient's father was given the same option at this time as on 02/23/2019, and he asked that the patient be admitted for further assessment. She also does describe some intermittent random discomfort in legs and arms. Allergies Allergy/AdvReac Type Severity Reaction Status Date / Time amoxicillin Allergy Unknown Rash Verified 05/22/19 05:24 fluconazole Allergy Unknown Unknown Verified 05/22/19 05:24 Home Medications Home Medications Medication Instructions Recorded Confirmed Type fluticasone propionate 2 spray INTRANASAL HS PRN 05/10/18 06/06/19 History gabapentin 200 mg PO HS 05/10/18 06/06/19 History norethindrone acetate 10 mg PO HS 05/10/18 06/06/19 History pantoprazole 40 mg PO HS 05/10/18 06/06/19 History lurasidone [Latuda] 20 mg PO HS 02/23/19 06/06/19 History Ivig 0 mg IV MONTHLY 04/18/19 06/06/19 History ibuprofen 200 mg PO Q6H PRN 04/18/19 06/06/19 History buspirone 15 mg PO BID 05/20/19 06/06/19 History acetaminophen [Tylenol Extra 1,000 mg PO Q6H PRN 05/22/19 06/06/19 History Strength] amoxicillin-pot clavulanate 1 tab PO Q12 06/06/19 06/06/19 History [Augmentin] ascorbic acid (vitamin C) [Vitamin 1 g PO DAILY 06/06/19 06/06/19 History C] mngvbhy-boqveaafcvtcc-plsqcnas 2 tab PO Q6H PRN 06/06/19 06/06/19 History [Excedrin Extra Strength] Past Med/Surg History Medical History Deep vein thrombosis, upper right extremity H. pylori infection (Acute) Kabuki syndrome Jocelynn-Taybi syndrome (Chronic) Surgical History H/O myringotomy (Resolved) Social History Preferred Language: Indonesian Communication Ability: Effective Communication Ability Comment: hx of intellectual disability Au Pair Required: No Beliefs That Will Affect Care: None Current Living Situation: Family Other Information That Helps Us Care for You: No Feels Safe at Home: Yes Safety Concerns: Feels Safe At This Time Smoking Status: Never smoker Second Hand Exposure: No ; Hx Alcohol Use: No Hx Substance Use: No Review of Systems Review of Systems: The patient denies shortness of breath, dyspnea on exertion, cough, lower extremity swelling, sore throat, fevers, chills, sweats, nausea, vomiting, diarrhea , constipation, abdominal pain, pelvic pain, blood in urine or stool, dysuria, urinary frequency or urgency, lightheadedness, dizziness, headache, memory loss, loss of consciousness, rash, abnormal bruising or bleeding, imbalance, generalized arthralgias or myalgias, back or neck pain, or night sweats. The review of systems is otherwise negative other than for that already noted above, and at least 10 systems have been reviewed. Physical Exam Physical Exam: The patient is awake, alert and oriented 3, lying in bed and in no acute distress. HEENT--PERRL, EOMI, mucous membranes and oropharynx normal. Neck--supple. No JVD. No bruits. Thyroid normal, trachea midline, no adenopathy. Heart--normal S1 and S2. No murmurs, rubs or gallops. Lungs--clear bilaterally, no respiratory distress, no accessory muscle use. Abdomen--normal bowel sounds and soft. Nontender. Nondistended. Extremities--no cyanosis or clubbing. No edema. Dermatologic--normal skin turgor, normal color, no abnormal lymph nodes, no rash. Neurologic--cranial nerves II through XII grossly intact. Rheumatologic--normal range of motion. Psychiatric--normal affect. Results & Data Results & Data ([facility]) Vital Signs (Past 12 Hours) Vital Signs Temp Pulse Resp BP Pulse Ox 06/06/19 23:00 102 H 19 116/86 97 06/06/19 22:00 103 H 24 120/87 98 06/06/19 21:00 102 H 23 138/85 98 06/06/19 17:46 98.1 F 96 H 20 131/74 98 Laboratory Results Laboratory Results WBC 7.43 K/uL (4.8-10.8) 06/06/19 18:44 RBC 5.11 M/uL (4.2-5.4) 06/06/19 18:44 Hgb 13.5 g/dL (12.0-16.0) 06/06/19 18:44 Hct 40.7 % (37-47) 06/06/19 18:44 MCV 79.6 fL (80-100) L 06/06/19 18:44 MCH 26.4 pg (25-34) 06/06/19 18:44 MCHC 33.2 g/dL (32-36) 06/06/19 18:44 RDW Std Deviation 45.2 fL (36.4-46.3) 06/06/19 18:44 RDW Coeff of Ally 15.6 % (11.5-14.5) H 06/06/19 18:44 Plt Count 356 K/uL (130-400) 06/06/19 18:44 MPV 10.3 fL (7.4-10.4) 06/06/19 18:44 Immature Gran % (Auto) 0.1 % 06/06/19 18:44 Neut % (Auto) 55.3 % 06/06/19 18:44 Lymph % (Auto) 34.1 % 06/06/19 18:44 [place] % (Auto) 10.1 % 06/06/19 18:44 Eos % (Auto) 0.3 % 06/06/19 18:44 Baso % (Auto) 0.1 % 06/06/19 18:44 Immature Gran # (Auto) 0.01 K/uL (0.00-0.02) 06/06/19 18:44 Neut # (Auto) 4.11 K/uL (1.4-6.5) 06/06/19 18:44 Lymph # (Auto) 2.53 K/uL (1.2-3.4) 06/06/19 18:44 [place] # (Auto) 0.75 K/uL (0.11-0.59) H 06/06/19 18:44 Eos # (Auto) 0.02 K/uL (0-0.5) 06/06/19 18:44 Baso # (Auto) 0.01 K/uL (0-0.2) 06/06/19 18:44 PT 11.4 Seconds (9.0-12.0) 06/06/19 18:44 INR 1.1 (0.9-1.1) 06/06/19 18:44 APTT 28.0 Seconds (21.0-31.0) 06/06/19 18:44 PTT Ratio 1.0 06/06/19 18:44 D-Dimer 1230 ug/L FEU (0-500) H* 06/06/19 18:44 Sodium 136 mmol/L (136-145) 06/06/19 18:44 Potassium 3.9 mmol/L (3.5-5.1) 06/06/19 18:44 Chloride 105 mmol/L (98-107) 06/06/19 18:44 Carbon Dioxide 26 mmol/L (21-32) 06/06/19 18:44 Anion Gap 5.0 (3-11) 06/06/19 18:44 BUN 9 mg/dl (7-18) 06/06/19 18:44 Creatinine 0.70 mg/dl (0.6-1.2) 06/06/19 18:44 Est Cr Clr Drug Dosing Not Reportable 06/06/19 18:44 Est GFR ( Amer) 134.8 06/06/19 18:44 Est GFR (Non-Af Amer) 116.3 06/06/19 18:44 BUN/Creatinine Ratio 13.1 (10-20) 06/06/19 18:44 Glucose 85 mg/dl (70-99) 06/06/19 18:44 Calcium 9.2 mg/dl (8.5-10.1) 06/06/19 18:44 Total Bilirubin 0.3 mg/dl (0.2-1) 06/06/19 18:44 AST 15 U/L (15-37) 06/06/19 18:44 ALT 33 U/L (12-78) 06/06/19 18:44 Alkaline Phosphatase 73 U/L (45-117) 06/06/19 18:44 Total Creatine Kinase 37 U/L (26-192) 06/06/19 18:44 CK-MB (CK-2) < 1.0 ng/ml (0.5-3.6) 06/06/19 18:44 CK/CKMB % Calc TNP 06/06/19 18:44 Troponin I < 0.015 ng/ml (0-0.045) 06/06/19 20:09 Total Protein 9.1 gm/dl (6.4-8.2) H 06/06/19 18:44 Albumin 3.9 gm/dl (3.4-5.0) 06/06/19 18:44 Globulin 5.2 gm/dl (2.5-4.0) H 06/06/19 18:44 Albumin/Globulin Ratio 0.8 (0.9-2) L 06/06/19 18:44 Lipase 214 U/L (73-393) 06/06/19 18:44 Diagnostic Findings [facility], [place] [phone] XRay Report Patient: WILBER POTTS Date: 06/06/19 MR#: [id number]: [facility] [facility] Acct ID:[id number]: Date: 1990[facility] Zip: [place] [address] Age: 29Location: ED Sex: F Room/Bed: Att Phy:Diagnosis: CHEST PAIN Mayela Phy: Belén BainsNPoornimaPPoornimaService Date: 06/06/19 Fam Phy:Interpreting Phy: Jesse Cullen MD Admit Phy: Ordering Phy: Clay Uriarte MD cc: ~ SINGLE VIEW CHEST CLINICAL HISTORY: Atypical chest pain. FINDINGS: An AP, portable, upright chest radiograph is compared to study dated 05/22/2019. Correlation is made with chest CT dated 05/10/2018. The examination is degraded by portable technique and patient rotation. The cardiomediastinal silhouette is unremarkable. There are low lung volumes. No airspace consolidation or large pleural effusion is identified. No pneumothorax is seen. The bony thorax is grossly intact. IMPRESSION: No active disease in the chest. ACT 112: Negative or not required by law. Electronically signed by: Jesse Cullen M.D. 06/06/2019 6:27 PM Dictated: 06/06/191825 Transcribed: 06/06/191825 [facility] Patient: SMOKER, WILBER Ennis (Female) : 88 Status: ER Date: 06/07/19 00:21 Room #: History: H/O DVT LEFT ARM. CHEST PAIN Slices: 70 Priors: 02/23/19 Tech: Genesis Busch @ [phone] Exams: US VENOUS LEFT UPPER EXTREMITY, US VENOUS BILATERAL LOWER EXTREMITIES Accession Numbers: [id number], [id number] Preliminary Findings Only See Final Report For Complete Findings US VENOUS LEFT UPPER EXTREMITY: Compared to 02/23/19 Redemonstrated thrombosis of one of the dual left brachial veins. US VENOUS BILATERAL LOWER EXTREMITIES: No DVT Radiologist: Noah Cortez M.D. Study ready at 00:25 and initial results transmitted at 00:27 *This report constitutes a preliminary interpretation only. Non-acute findings felt to be unrelated to the clinical presentation may not be discussed in this report. The study will be interpreted and a final report will be generated by the local Radiologist the following shift. To reach the hospital radiology department call [phone]. If a discrepancy is found between the preliminary and final interpretations of this study, please notify us via our Client Portal at [email or web address], under QA Exams.You can also fax this report with a description of the discrepancy, or include the final report, to our daytime fax number [phone].If faxing, please indicate the severity of discrepancy using one of the following categories: [ ] 1 - Agree/Informational [ ] 2 - Unlikely to Affect Management [ ] 3 - Possible Eventual Change of Management [ ] 4 - Probable Immediate Change of Management For all other patient related information, please fax us at [phone]. [id number] Code Status & VTE Plan Code Status Full code VTE Prophylaxis Plan VTE Prophylaxis will be ordered: Yes PG Care Time/CCT Total # of Minutes Spent Total Time Spent with Patient: Total time spent is greater than 50% in coordination of care (as documented) at patient's floor/unit and/or counseling patient: Coding Level of Care Code 75646 OBS Care - Level 3 Diagnoses Deep vein thrombosis (DVT) of left upper extremity I82.622 Chest pain R07.9 Chest pain type: unspecified Kabuki syndrome Q89.8 Jocelynn-Taybi syndrome Q87.2 Palpitations R00.2 (1) Chest pain Chest pain type: unspecified Qualified Code(s): R07.9 - Chest pain, unspecified
[2019-06-07] MEDS ORDERED: FLUTICASONE PROPIONATE NA SPR 16 GM BTL NAE PRN (00:33)
[2019-06-07] MEDS ORDERED: MAGNESIUM HYDROXIDE SUSP 30 ML UDC PO PRN (00:33)
[2019-06-07] MEDS ORDERED: ALUMINUM/MAGNESIUM SUSP 30 ML UDC PO PRN (00:33)
[2019-06-07] MEDS ORDERED: ONDANSETRON INJ 2 MG/ML 2 ML VIAL IV PRN (00:33)
[2019-06-07] MEDS: BusPIRone 15 MG TAB PO SCH ×3 (00:46→08:18)
[2019-06-07] MEDS: ACETAMINOPHEN 500 MG TAB PO PRN ×2 (00:47→08:18)
[2019-06-07] MEDS ORDERED: KETOROLAC 30 MG/ML VIAL IV PRN (02:39)
--- NOTE | 2019-06-07 07:03 | Ultrasound Report ---
BILATERAL LOWER EXTREMITY VENOUS DOPPLER HISTORY: Acute chest pain Pt c/o chest pain COMPARISON STUDY: None. FINDINGS: There is normal compressibility, flow, and augmentation within the bilateral lower extremit y deep venous systems. IMPRESSION: No DVT within the right or left lower extremity. ACT 112: Negative or not required by law. Electronically signed by: Lul Damico M.D. 06/07/2019 7:02 AM
--- NOTE | 2019-06-07 07:13 | Ultrasound Report ---
US venous doppler UE LT HISTORY: 29 years-old Female Pt c/o ULE acute pain of left upper extremity COMPARISON: Duplex venous Doppler study 02/23/2019 TECHNIQUE: Multiple real-time sonographic images of the left upper extremity deep venous structures w ere obtained assessing grayscale appearance, color and spectral flow FINDINGS: Patent internal jugular, subclavian and axillary veins. Occlusive deep venous thrombosis redemonstrat ed involving one of the two paired brachial veins within the proximal to midportion of the vessel. Th is extends into a superficial branch of the brachial artery within the distal upper arm. Radial and u lnar arteries are patent. Soft tissues appear unremarkable. IMPRESSION: Unchanged occlusive deep venous thrombosis involves one of the two paired brachial veins. ACT 112: Negative or not required by law. The above report was generated using voice recognition software. It may contain grammatical, syntax o r spelling errors. Electronically signed by: Lul Damico M.D. 06/07/2019 7:12 AM
[2019-06-07] MEDS ORDERED: PERFLUTREN LIPID MICROSPHERE (DEFINITY) IV ONE (07:43)
[2019-06-07] MEDS ORDERED: ASCORBIC ACID 500 MG TAB PO SCH ×2 (09:00)
--- NOTE | 2019-06-07 09:47 | XCELERA ---
[id number] \\[email or web address]\[id number]_[id number]
--- NOTE | 2019-06-07 10:05 | Electrocardiogram Report ---
Test Reason : Blood Pressure : / mmHG Vent. Rate : 088 BPM Atrial Rate : 088 BPM P-R Int : 126 ms QRS Dur : 098 ms QT Int : 376 ms P-R-T Axes : 065 114 021 degrees QTc Int : 454 ms Poor data quality, interpretation may be adversely affected Normal sinus rhythm Incomplete right bundle branch block Right ventricular hypertrophy Cannot rule out Inferior infarct , age undetermined Abnormal ECG When compared with ECG of 18-APR-2019 13:42, No significant change was found Confirmed by Arya Cabrera ([id number]) on 06/07/2019 10:05:05 AM Referred By: REFERRED SELF Confirmed By:Arya Cabrera
--- NOTE | 2019-06-07 10:06 | Electrocardiogram Report ---
Test Reason : Blood Pressure : / mmHG Vent. Rate : 094 BPM Atrial Rate : 094 BPM P-R Int : 130 ms QRS Dur : 092 ms QT Int : 370 ms P-R-T Axes : 060 104 007 degrees QTc Int : 462 ms Normal sinus rhythm Rightward axis Incomplete right bundle branch block Abnormal ECG When compared with ECG of 06-JUN-2019 17:55, No significant change was found Confirmed by Arya Cabrera ([id number]) on 06/07/2019 10:06:25 AM Referred By: REFERRED SELF Confirmed By:Arya Cabrera
--- NOTE | 2019-06-07 10:10 | Electrocardiogram Report ---
Test Reason : Blood Pressure : / mmHG Vent. Rate : 087 BPM Atrial Rate : 087 BPM P-R Int : 136 ms QRS Dur : 098 ms QT Int : 384 ms P-R-T Axes : 070 134 031 degrees QTc Int : 462 ms Normal sinus rhythm Right axis deviation Incomplete right bundle branch block Right ventricular hypertrophy with repolarization abnormality Prolonged QT Abnormal ECG When compared with ECG of 06-JUN-2019 19:55, No significant change Confirmed by Arya Cabrera ([id number]) on 06/07/2019 10:09:58 AM Referred By: REFERRED SELF Confirmed By:Arya Cabrera
--- NOTE | 2019-06-07 11:42 | Nuclear Medicine Report ---
NM pul perfusion CLINICAL HISTORY: 29 years-old Female with CP, DVT. Acute chest pain with upper extremity deep venou s thrombosis present dating back to 02/21/2019. COMPARISON STUDY: Duplex venous Doppler study 06/06/2019, a VQ scan 03/07/2019, CTA of the chest 019. TECHNIQUE: Perfusion only images of both lungs were obtained following the IV administration of 5.7 m Ci of technetium 99m MAA. No ventilation images were obtained secondary to current precaution guideli leo against ventilation with pandemic protocol. Images acquired in the anterior, posterior, and obliq ue projections. FINDINGS: A chest x-ray performed 06/06/2019 demonstrates clear lungs without pleural effusion or airspace conso lidation. No perfusion defects are identified on the perfusion imaging. IMPRESSION:Low probability for pulmonary embolus. ACT 112: Negative or not required by law. The above report was generated using voice recognition software. It may contain grammatical, syntax o r spelling errors. Electronically signed by: Lul Damico M.D. 06/07/2019 11:41 AM
--- NOTE | 2019-06-07 12:12 | Discharge Summary ---
Date of Service June 07, 2019 Admission HPI Per Admitting Provider The patient is a 29-year-old female with a past medical history including left upper extremity DVT, kabuki syndrome, H. pylori infection, pneumonia, Jocelynn-Taybi syndrome, mesenteric adenitis, lower GI bleeding and previously elevated d-dimer. She presents the emergency department with complaint of recurrent precordial chest pain that was not relieved by taking antacids. She was seen in the emergency department on 02/23/2019 with similar symptoms and findings at that time. 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 She continues to have negative bilateral lower extremity venous Dopplers on both those dates. She has had this pain ongoing for the past 4 weeks, but feels it may be a little bit worse today, which prompted her visit to the ED with her father. She had been on Eliquis upon discharge from last emergency department visit, however, this was discontinued by her outpatient PCP. The patient does complain of palpitations, and had a feeling earlier that her heart was racing when she was having the chest discomfort more intensely. She does have a history of some form of cardiac surgery as a child, associated with her kabuki syndrome and Jocelynn-Taybi syndrome. The patient's father was given the same option at this time as on 02/23/2019, and he asked that the patient be admitted for further assessment. She also does describe some intermittent random discomfort in legs and arms. Admission Exam Per Admitting Provider The patient is awake, alert and oriented 3, lying in bed and in no acute distress. HEENT--PERRL, EOMI, mucous membranes and oropharynx normal. Neck--supple. No JVD. No bruits. Thyroid normal, trachea midline, no adenopathy. Heart--normal S1 and S2. No murmurs, rubs or gallops. Lungs--clear bilaterally, no respiratory distress, no accessory muscle use. Abdomen--normal bowel sounds and soft. Nontender. Nondistended. Extremities--no cyanosis or clubbing. No edema. Dermatologic--normal skin turgor, normal color, no abnormal lymph nodes, no neeru h. Neurologic--cranial nerves II through XII grossly intact. Rheumatologic--normal range of motion. Psychiatric--normal affect. Principal Diagnosis 1. History of kabuki syndrome, Jocelynn-Taybi syndrome 2. Left upper extremity DVT , seen on Dopplers 3. Chest pain, consider musculoskeletal versus worsening GERD Discharge Exam Constitutional cooperative; no acute distress Neck trachea midline, no thyromegaly Respiratory normal respiratory effort Auscultation: lungs clear to auscultation bilaterally; no crackles, no rales, no rhonchi and no wheezes Cardiovascular Rate/Rhythm: regular rate and regular rhythm Heart Sounds: normal S1 and normal S2 Mild tenderness of parasternal area with palpation, not severe Gastrointestinal (Abdomen) Inspection/Auscultation: abdomen normal to inspection Percussion/Palpation: abdomen soft; abdomen nontender, no guarding, abdomen not rigid and no hepatosplenomegaly Musculoskeletal Left groin with ecchymosis, no hematoma. Likely secondary to attempt last night to place central line. Skin no rashes, warm and dry Discharge Data Allergies Allergy/AdvReac Type Severity Reaction Status Date / Time amoxicillin Allergy Unknown Rash Verified 05/22/19 05:24 fluconazole Allergy Unknown Unknown Verified 05/22/19 05:24 Consultations 06/06/19 21:23 ED Decision to Admit Stat 06/07/19 00:33 Consult Cardiology Routine 06/07/19 03:02 Consult Cardiology Routine Ordered Studies 06/06/19 21:39 US venous doppler LE BI Urgent US venous doppler UE LT Urgent US venous doppler UE LT HISTORY: 29 years-old Female Pt c/o ULE acute pain of left upper extremity COMPARISON: Duplex venous Doppler study 02/23/2019 TECHNIQUE: Multiple real-time sonographic images of the left upper extremity deep venous structures were obtained assessing grayscale appearance, color and spectral flow FINDINGS: Patent internal jugular, subclavian and axillary veins. Occlusive deep venous thrombosis redemonstrated involving one of the two paired brachial veins within the proximal to midportion of the vessel. This extends into a superficial branch of the brachial artery within the distal upper arm. Radial and ulnar arteries are patent. Soft tissues appear unremarkable. IMPRESSION: Unchanged occlusive deep venous thrombosis involves one of the two paired brachial veins. --- BILATERAL LOWER EXTREMITY VENOUS DOPPLER HISTORY: Acute chest pain Pt c/o chest pain COMPARISON STUDY: None. FINDINGS: There is normal compressibility, flow, and augmentation within the bilateral lower extremity deep venous systems. IMPRESSION: No DVT within the right or left lower extremity. --- NM pul perfusion CLINICAL HISTORY: 29 years-old Female with CP, DVT. Acute chest pain with upper extremity deep venous thrombosis present dating back to 02/21/2019. COMPARISON STUDY: Duplex venous Doppler study 06/06/2019, a VQ scan 03/07/2019, CTA of the chest 05/10/2018. TECHNIQUE: Perfusion only images of both lungs were obtained following the IV administration of 5.7 mCi of technetium 99m MAA. No ventilation images were obtained secondary to current precaution guidelines against ventilation with pandemic protocol. Images acquired in the anterior, posterior, and oblique projections. FINDINGS: A chest x-ray performed 06/06/2019 demonstrates clear lungs without pleural effusion or airspace consolidation. No perfusion defects are identified on the perfusion imaging. IMPRESSION:Low probability for pulmonary embolus. Hospital Course (1) Deep vein thrombosis (DVT) of left upper extremity: DVT of left upper extremity involving 1 branch of the left brachial vein- Initially demonstrated on 02/21/2019. I discussed with mother over the phone extensively. Because of the left upper extremity DVT, I would restart Eliquis for at least another 3 months if not longer. Will start at 5 mg every 12 hours, prescription sent to the pharmacy. There was concern regarding a pulmonary embolism but the patient could not get a peripheral IV to have a CT angiogram done. VQ scan was performed which was read as low probability. As we are treating for DVT with anticoagulation, I would not investigate further. (2) Chest pain: Patient has significant amount of chest pain per mother. I suspect this may be GI and the patient was apparently scheduled for work-up prior to the pandemic issue. A 2D echo was performed, I did review and noted that this was essentially unremarkable. For now, can increase Protonix to 40 mg twice daily and add Pepcid 20 mg nightly. I did recommend the patient and her mother did pursue a GI work-up once this is again feasible. (3) Kabuki syndrome: Noted (4) Jocelynn-Taybi syndrome: Noted (5) Palpitations: Patient does report chest discomfort when she has had sensation of palpitations, however, there were no abnormalities noted in the ED. She will be admitted to monitored bed for further assessment and echocardiogram as noted with cardiology consult Total Time Total Time Spent Total Time Spent (In Minutes): Total time in preparing discharge, discussing with patient and her mother over the phone in excess of 30 minutes. Discharge Plan Discharge Items Patient Disposition: Home - Self-Care Reason For Visit: CHEST PAIN Discharge Diagnosis: 1. History of kabuki syndrome, Jocelynn-Taybi syndrome 2. Left upper extremity DVT is seen on Dopplers 3. Chest pain, consider musculoskeletal versus worsening GERD Activity: Resume your previous activity Lifting: Gradually increase as tolerated Non-emergency contact: Primary Care Provider Call non-emergency contact if: your symptoms worsen Follow-up/Referrals: Belén Bains [Primary Care Provider] - Diet: Regular Addtl Attending Provider Instructions: As discussed with patient's mother Pending Studies at Discharge: No Stand-Alone Forms: My Bread, Smoking Cessation Medications and DC Order Prescriptions: New magnesium hydroxide [Milk of Magnesia] 400 mg/5 mL Suspension 30 ml PO Q12H PRN (Reason: constipation) Qty: 480 RF: 0 MAG-AL 200-200 mg/5 mL Suspension 15 ml PO Q4H PRN (Reason: dyspepsia) Qty: 3000 RF: 0 famotidine [Pepcid] 20 mg tablet 20 mg PO HS Qty: 30 RF: 0 Eliquis 5 mg tablet 5 mg PO BID Qty: 60 RF: 0 Continued norethindrone acetate 5 mg tablet 10 mg PO HS RF: 0 gabapentin 100 mg capsule 200 mg PO HS RF: 0 fluticasone propionate 50 mcg/actuation spray,suspension 2 spray Intranasal HS PRN (Reason: Allergy Symptoms) RF: 0 Latuda 20 mg tablet 20 mg PO HS RF: 0 ibuprofen 200 mg Tablet 200 mg PO Q6H PRN (Reason: Pain) RF: 0 Ivig 0 mg IV MONTHLY RF: 0 acetaminophen [Tylenol Extra Strength] 500 mg Tablet 1,000 mg PO Q6H PRN (Reason: Fever Or Pain) RF: 0 buspirone 15 mg tablet 15 mg PO BID RF: 0 ascorbic acid (vitamin C) [Vitamin C] 1,000 mg Tablet 1 g PO DAILY RF: 0 Excedrin Extra Strength 250-250-65 mg Tablet 2 tab PO Q6H PRN (Reason: Pain) RF: 0 Changed pantoprazole 40 mg tablet,delayed release (DR/EC) 40 mg PO BID Qty: 0 RF: 0 Discontinued amoxicillin-pot clavulanate [Augmentin] 875-125 mg tablet 1 tab PO Q12 RF: 0 Discharge Orders: Discharge Order (Routine); Ordered 06/07/19 Ordered By: Osorio Mendoza Admission Data Admit Date/Time: 06/06/19 22:26 Attending Provider: Osorio Mendoza Admit Provider: Silver Coelho Primary Care Provider: Belén Bains Other Providers: Silver Coelho ; Prakash Angeles Other Interventions: Discharge Summary Assessment (RN) Last Done: 06/07/19 11:54 Coding Level of Care Code D/C Day Management >30 mins Diagnoses Deep vein thrombosis (DVT) of left upper extremity I82.622 Chest pain R07.9 Chest pain type: unspecified Kabuki syndrome Q89.8 Jocelynn-Taybi syndrome Q87.2 Palpitations R00.2
--- NOTE | 2019-06-07 12:47 | Cardiology Consultation ---
Date of Consultation June 07, 2019 Assessment & Plan (1) Atypical chest pain: Patient with atypical chest wall pain most consistent with costochondritis. Stable ECG and negative cardiac enzymes in the context of ongoing moderate intensity atypical pain strongly way against any myocardial ischemia in this patient who should be at low epidemiologic risk for coronary artery disease. Would manage with acetaminophen and, if medical comorbidities allow, nonsteroidal anti-inflammatory agents. No role for stress testing, as the likelihood of false positive far exceeds the likelihood of gaining any clarifying information in the context of atypical symptoms and low epidemiologic risk. (2) S/P VSD closure: No evidence of residual ventricular septal defect. Echocardiogram was generally unremarkable, systolic function was normal and there was no si gnificant valvular disease. Right heart size was unremarkable. (3) Kabuki syndrome: Congenital heart issues with this syndrome include ventricular or atrial septal defects and coarctation of the aorta, in this case it appears the patient had a ventricular septal defect which was repaired. Case discussed with Dr. Mendoza, no further cardiac testing or cardiac interventions necessary at this time. History of Present Illness Reason for Consultation: Atypical chest pain, history of cardiac surgery as a child. Requesting Physician: Silver Coelho MD Attending Physician: Osorio Mendoza, DO History of Present Illness 29-year-old woman with history of genetic disorder/developmental delay including Kabuki and Jocelynn-Taybi syndromes, congenital heart disease (repaired VSD), and multiple other medical problems, who was admitted 06/06/2019 with atypical chest pain. Patient had an episode of positional/pleuritic chest discomfort prompting an ER visit on 02/23/2019, work-up was negative. She noted recurrence of the discomfort over the past 4 weeks, worse yesterday prompting admission. Her pain is again both pleuritic and positional and is really chest wall pain which is markedly exacerbated upon palpation of the right upper sternal border. No dyspnea, nausea, vomiting, presyncope, or syncope. She had noted some palpitations with the discomfort yesterday. At the time of my exam, she had ongoing moderate intensity chest wall discomfort which was largely unchanged from admission. No additional symptoms noted. Hemodynamics favorable. Telemetry shows rhythm sinus at normal heart rates, no dysrhythmias. Allergies Allergy/AdvReac Type Severity Reaction Status Date / Time amoxicillin Allergy Unknown Rash Verified 05/22/19 05:24 fluconazole Allergy Unknown Unknown Verified 05/22/19 05:24 Home Medications Home Medications Medication Instructions Recorded Confirmed Type fluticasone propionate 2 spray INTRANASAL HS PRN 05/10/18 06/06/19 History gabapentin 200 mg PO HS 05/10/18 06/06/19 History norethindrone acetate 10 mg PO HS 05/10/18 06/06/19 History Latuda 20 mg PO HS 02/23/19 06/06/19 History Ivig 0 mg IV MONTHLY 04/18/19 06/06/19 History ibuprofen 200 mg PO Q6H PRN 04/18/19 06/06/19 History buspirone 15 mg PO BID 05/20/19 06/06/19 History acetaminophen [Tylenol Extra 1,000 mg PO Q6H PRN 05/22/19 06/06/19 History Strength] Excedrin Extra Strength 2 tab PO Q6H PRN 06/06/19 06/06/19 History ascorbic acid (vitamin C) [Vitamin 1 g PO DAILY 06/06/19 06/06/19 History C] aluminum-magnesium hydroxide 15 ml PO Q4H PRN #3000 ml 06/07/19 Rx [MAG-AL] apixaban [Eliquis] 5 mg PO BID #60 tab 06/07/19 Rx famotidine [Pepcid] 20 mg PO HS #30 tab 06/07/19 Rx magnesium hydroxide [Milk of 30 ml PO Q12H PRN #480 ml 06/07/19 Rx Magnesia] pantoprazole 40 mg PO BID #0 tab 06/07/19 06/06/19 Rx Patient History Medical History (Updated 06/07/19 @ 13:20 by Arya Cabrera MD) Abdominal pain (Inactive) Altered mental status (Inactive) Deep vein thrombosis (DVT) of left upper extremity (01/2019) Elevated troponin (Inactive) H. pylori infection (Acute) Headache (Inactive) Kabuki syndrome Lower GI bleeding (Inactive) Lower GI bleeding (Inactive) Medication reaction (Inactive) Pneumonia (Inactive) Jocelynn-Taybi syndrome (Chronic) URI (upper respiratory infection) VSD (ventricular septal defect) Surgical History (Updated 06/07/19 @ 13:20 by Arya Cabrera MD) H/O myringotomy (Resolved) History of partial hysterectomy History of repair of congenital cleft palate S/P VSD closure Status post Katerin fundoplication Social History Preferred Language: Kosovan Communication Ability: Effective Facility Planner Required: No Beliefs That Will Affect Care: None Current Living Situation: Family Feels Safe at Home: Yes Smoking Status: Never smoker Second Hand Exposure: No ; Hx Alcohol Use: No Hx Substance Use: No Review of Systems Constitutional: + fatigue; no fever, no chills, no weight loss and no weight gain Eyes: no problem reported Ear, Nose, Mouth, Throat: no problem reported Respiratory: no cough and no dyspnea Cardiovascular: as per Subjective / HPI Gastrointestinal: no abdominal pain and no change in stools Genitourinary: no problem reported Musculoskeletal: no myalgia Integumentary: no rash and no new lesions Neurologic: no falls and no syncope Hematologic / Lymphatic: no easy bleeding and no easy bruising Physical Exam Physical Exam: Adult white female with mildly atypical facial/neck morphology in no distress. Afebrile. BP normotensive. Heart rate normal to minimally tachycardic. Normal respiratory rate. Skin: No generalized lesions or petechiae. HEENT: No acute process. Neck: Atypical morphology (short neck), no carotid bruits or obvious jugular venous distention. Lungs: Clear and equal breath sounds bilateral. Cardiac: Regular rhythm without ectopy. Normal S1, normal pulmonic closure sound, normal aortic closure sound. No murmur or gallop. Chest wall: Generalized anterior chest wall tenderness which reproduces her chest pain. Most marked right upper sternal border costochondral junction. Abdomen: Soft nontender. Extremities: No edema. Neurologic: Answers simple questions appropriately, limited insight regarding more complex questions, grossly nonfocal. Results & Data ([facility]) Vital Signs (Past 12 Hours) Vital Signs Temp Pulse Pulse Resp BP Pulse Ox 06/07/19 11:54 98.6 F 93 H 18 129/88 100 06/07/19 08:15 98.6 F 93 H 18 129/88 100 06/07/19 08:00 88 06/07/19 04:40 97.7 F 91 H 18 115/78 97 06/07/19 01:22 112 H 06/07/19 00:58 98.1 F 105 H 20 130/82 99 Laboratory Results 05/11/18 06/06/19 06/06/19 09:12 18:44 18:44 WBC 7.43 Hgb 13.5 D-Dimer 2220 H* 1230 H* Creatinine Total Creatine Kinase Troponin I 06/06/19 06/06/19 06/07/19 18:44 20:09 05:32 WBC Hgb D-Dimer Creatinine 0.70 Total Creatine Kinase 37 Troponin I < 0.015 < 0.015 < 0.015 Diagnostic Findings ECG on admission showed sinus rhythm at 94 bpm with incomplete right bundle branch block, possible RVH, mildly prolonged QT (QTC 0.46), no acute changes. Unchanged compared with prior. 3 subsequent ECGs showed no dynamic ST change or other new abnormalities. Chest x-ray unremarkable. Left upper extremity venous Doppler showed unchanged occlusive DVT in 1 of the 2 paired brachial veins. Ventilation/perfusion scan was felt to be low probability for pulmonary embolism. Echocardiogram showed low normal LV systolic function (EF 50 to 55%) with no wall motion abnormalities or significant valvular disease. No evidence of remaining ventricular septal defect. Aortic arch was reasonably well visualized and showed no coarctation. PG Care Time/CCT Total # of Minutes Spent Total Time Spent with Patient: Total time spent is greater than 50% in coordination of care (as documented) at patient's floor/unit and/or counseling patient: Coding Level of Care Code 16227 Inpt Consult Level 4 Diagnoses Atypical chest pain R07.89 S/P VSD closure Z87.74 Kabuki syndrome Q89.8
[2019-06-07] MEDS ORDERED: PANTOprazole 40 MG TAB PO SCH (21:00)
[2019-06-07] MEDS ORDERED: GABAPENTIN 100 MG CAP PO SCH (21:00)
[2019-06-07] MEDS ORDERED: LURASIDONE HCL 40 MG TAB PO SCH (21:00)
[2019-06-07] MEDS ORDERED: NORETHINDRONE 5 MG TAB PO SCH (21:00)
[2019-06-09 13:34] LABS: Albumin 3.6 g/dL (3.8-4.8); Alpha 1 Globulin 0.4 g/dL (0.2-0.3); Alpha 2 Globulin 0.9 g/dL (0.5-0.9); Beta-1-Globulin 0.4 g/dL (0.4-0.6); Beta-2-Globulin 0.2 g/dL (0.2-0.5); Gamma Globulin 1.3 g/dL (0.8-1.7); Monoclonal Protein Band 1 DNR g/dL (NONE DETECTED); Monoclonal Protein Band 2 DNR g/dL (NONE DETECTED); Monoclonal Protein Band 3 DNR g/dL (NONE DETECTED); Total Protein 6.8 g/dL (6.1-8.1)
== END 2019-06-07 12:29 | disposition home or self-care (01) ==
LOC: 2S 17:45 → ED 17:45 → SUATTDRO 22:26 → 2S 23:17

== ENCOUNTER 2020-11-06 18:09 | Inpatient (IN) ==
--- NOTE | 2020-11-06 18:58 | Emergency Department Note ---
Impression & Plan Anxiety, Behavioral change, COVID-19 ED Provider Note NAME: WILBER Ennis SMOKER AGE: 30 SEX: F : 1990 ARRIVES VIA: Walk-In INFORMANT: Patient, ED PROVIDER(S): Ifeanyi Lao MD Chief Complaint: Anxiety, Covid positive HPI: Patient does present with anxiety. The patient recently had been seen yesterday and was diagnosed with Covid. 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 The patient had been discussed with Geovanny Grace yesterday given the patient's Covid illness. They recommended a follow-up in the emergency department yesterday. The patient was seen and evaluated and subsequently discharged yesterday. Patient was never hypoxic during her visit yesterday. Patient states that her anxiety is worse today. The patient takes 3 medications for this. The patient is vaccinated for Covid. Patient states that she has no SI, HI or AVH. Patient does live with her parents. Patient states that she is not sure why her parents told her that she needed to be admitted. Patient states that if she had improvement with her anxiety she would want to go home. Digital history was gathered from case management talking with the patient's parents. The patient has been more disruptive and questionably violent with some outbursts in addition to the patient's anxiety. ROS: See HPI for pertinent positives and negatives. A total of 10 systems were reviewed and otherwise negative. Past medical history: See below Surgical history: See below Social history: See below Physical Exam: GENERAL: NAD, [wearing glasses,] wearing a face covering, non-toxic. Hard of hearing. EYE EXAM: Normal conjunctiva. PERRL, no anisocoria and EOM's grossly intact w/o pain. NECK: Supple, no nuchal rigidity, no adenopathy, non-tender. No signs of meningismus. LUNGS: Clear to auscultation. Normal chest wall mechanics. HEART: NSR, no MRG. ABDOMEN: Abdomen soft, non-tender, normo-active bowel sounds, no masses, no rebound or guarding. BACK: No CVA TTP. SKIN: No rashes and no bruising. UPPER EXTREMITIES: Upper extremities are grossly normal. LOWER EXTREMITIES: Grossly normal, no edema. NEURO EXAM: A&O x3, cranial nerves II-XII grossly intact, normal speech, moves all 4 extremities on command w/o issue. Psych: Mildly anxious, denies SI, HI, or AVH. Differential diagnoses: Mood disorder, infection, hypoglycemia, electrolyte abnormalities, cardiac sources, intracerebral event, toxicologic, trauma, neurologic, as well as other pathologies. Course: Patient was seen and evaluated the bedside. Full history physical exam was performed. MDM: Patient cannot be admitted directly to the psychiatric service due to her Covid positive illness. I did give the on-call hospitalist Dr. Shipley and the patient was admitted to the medicine service. Past Med/Surg History Medical History Abdominal pain Altered mental status Deep vein thrombosis (DVT) of left upper extremity (01/2019) Elevated troponin H. pylori infection Headache Kabuki syndrome Lower GI bleeding Lower GI bleeding Medication reaction Pneumonia Jocelynn-Taybi syndrome URI (upper respiratory infection) VSD (ventricular septal defect) Surgical History H/O myringotomy History of ankle surgery History of partial hysterectomy History of repair of congenital cleft palate S/P VSD closure Status post Katerin fundoplication Family History (Updated 06/07/19 @ 19:21 by Arya Cabrera MD) Other Adopted Social History Smoking Status: Never smoker Second Hand Exposure: No; Hx Alcohol Use: No Hx Substance Use: No Preferred Language: Congolese Communication Ability: Impaired Communication Ability Comment: [place], intellectual disability 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 Beliefs That Will Affect Care: None Current Living Situation: Family Current Living Situation Comment: Lives with parents Feels Safe at Home: Yes Assistive Devices: Glasses Allergies Allergies Allergy/AdvReac Type Severity Reaction Status Date / Time amoxicillin Allergy Unknown Rash Verified 03/03/20 14:25 Home Meds Home Medications Medication Instructions Recorded Confirmed fluticasone propionate 50 2 spray INTRANASAL HS PRN 05/10/18 11/07/20 mcg/actuation nasal spray,suspension gabapentin 100 mg capsule 300 mg PO HS 05/10/18 11/07/20 norethindrone acetate 5 mg tablet 10 mg PO HS 05/10/18 11/07/20 Ivig 0 mg IV MONTHLY 04/18/19 11/07/20 ascorbic acid (vitamin C) 1,000 mg 1 g PO QAM 06/06/19 11/07/20 tablet (Vitamin C) guanfacine 1 mg tablet 2 mg PO QAM 03/03/20 11/07/20 lorazepam 0.5 mg tablet (Ativan) See Rx Instructions .ROUTE 11/07/20 11/07/20 .COMPLEX PRN lurasidone 40 mg tablet (Latuda) 40 mg PO DAILY 11/07/20 11/07/20 meloxicam 15 mg tablet 15 mg PO DAILY 11/07/20 11/07/20 trazodone 50 mg tablet 50 mg PO HS 11/07/20 11/07/20 Previous Rx's Medication Instructions Recorded famotidine 20 mg tablet (Pepcid) 20 mg PO HS #30 tab 06/07/19 pantoprazole 40 mg tablet,delayed 40 mg PO BID #0 tab 06/07/19 release Results & Data (ED) Vital Signs Vital Signs - 24 hr 11/06/20 18:45 11/06/20 20:45 Temperature 36.4 C L Temperature Source Oral Pulse Rate 125 H Pulse Rate [Finger] 99 H Respiratory Rate 18 18 Respiratory Effort / Characteristics Non-Labored Spontaneous Non-Labored Spontaneous Respiratory Depth Normal Normal Respiratory Pattern Regular Blood Pressure 160/95 H Blood Pressure [Left Arm] 127/77 Blood Pressure Mean 116 Blood Pressure Mean [Left Arm] 93 Blood Pressure Position Sitting Blood Pressure Position [Left Arm] Lying Pulse Oximetry 95 95 Oxygen Delivery Method Room Air Room Air Sepsis Recent Fever Within 48 Hours No Sepsis New/Unexplained Change in Mental Status N/A Sepsis Action Taken by Nursing No Action Required Laboratory Data Result diagrams: 11/07/20 08:11 11/07/20 08:11 Lab Results 11/06/20 11/06/20 11/06/20 Range/Units 19:48 19:48 19:48 WBC 11.26 H (4.8-10.8) K/uL RBC 4.71 (4.2-5.4) M/uL Hgb 13.5 (12.0-16.0) g/dL Hct 39.5 (37-47) % MCV 83.9 (80-100) fL MCH 28.7 (25-34) pg MCHC 34.2 (32-36) g/dL RDW Std Deviation 46.9 H (36.4-46.3) fL RDW Coeff of Ally 15.4 H (11.5-14.5) % Plt Count 221 (130-400) K/uL MPV 12.1 H (7.4-10.4) fL Immature Gran % (Auto) 0.4 % Neut % (Auto) 94.6 % Lymph % (Auto) 3.7 % [place] % (Auto) 1.2 % Eos % (Auto) 0.0 % Baso % (Auto) 0.1 % Neut # (Auto) 10.65 H (1.4-6.5) K/uL Lymph # (Auto) 0.42 L (1.2-3.4) K/uL [place] # (Auto) 0.14 (0.11-0.59) K/uL Eos # (Auto) 0.00 (0-0.5) K/uL Baso # (Auto) 0.01 (0-0.2) K/uL Immature Gran # (Auto) 0.04 H (0.00-0.02) K/uL Polychromasia 1+ Echinocytes 1+ Sodium 135 L (136-145) mmol/L Potassium TNP Chloride 106 (98-107) mmol/L Carbon Dioxide 22 (21-32) mmol/L Anion Gap 8.0 (3-11) BUN 7 (7-18) mg/dl Creatinine 1.00 (0.6-1.2) mg/dl Est Cr Clr Drug Dosing 64.5 ml/min Est GFR ( Amer) 86.9 ml/min Est GFR (Non-Af Amer) 75.0 ml/min BUN/Creatinine Ratio 6.5 L (10-20) Glucose 340 H* (70-99) mg/dl Calcium 8.7 (8.5-10.1) mg/dl Total Bilirubin 0.3 (0.2-1) mg/dl AST TNP ALT 33 (12-78) U/L Alkaline Phosphatase 65 (45-117) U/L Total Protein 8.9 H (6.4-8.2) gm/dl Albumin 3.0 L (3.4-5.0) gm/dl Globulin 5.9 H (2.5-4.0) gm/dl Albumin/Globulin Ratio 0.5 L (0.9-2) Beta-Hydroxybutyric Acd (0.2-2.81) mg/dl TSH 1.390 (0.300-4.500) uIu/ml Specimen Hemolysis Salicylates (2.8-20) mg/dl Acetaminophen (10-30) ug/ml Ethyl Alcohol mg/dL < 3.0 (0-3) mg/dl 11/06/20 11/06/20 Range/Units 20:45 20:45 WBC (4.8-10.8) K/uL RBC (4.2-5.4) M/uL Hgb (12.0-16.0) g/dL Hct (37-47) % MCV (80-100) fL MCH (25-34) pg MCHC (32-36) g/dL RDW Std Deviation (36.4-46.3) fL RDW Coeff of Ally (11.5-14.5) % Plt Count (130-400) K/uL MPV (7.4-10.4) fL Immature Gran % (Auto) % Neut % (Auto) % Lymph % (Auto) % [place] % (Auto) % Eos % (Auto) % Baso % (Auto) % Neut # (Auto) (1.4-6.5) K/uL Lymph # (Auto) (1.2-3.4) K/uL [place] # (Auto) (0.11-0.59) K/uL Eos # (Auto) (0-0.5) K/uL Baso # (Auto) (0-0.2) K/uL Immature Gran # (Auto) (0.00-0.02) K/uL Polychromasia Echinocytes Sodium (136-145) mmol/L Potassium 3.6 Chloride (98-107) mmol/L Carbon Dioxide (21-32) mmol/L Anion Gap (3-11) BUN (7-18) mg/dl Creatinine (0.6-1.2) mg/dl Est Cr Clr Drug Dosing ml/min Est GFR ( Amer) ml/min Est GFR (Non-Af Amer) ml/min BUN/Creatinine Ratio (10-20) Glucose (70-99) mg/dl Calcium (8.5-10.1) mg/dl Total Bilirubin (0.2-1) mg/dl AST 39 H ALT (12-78) U/L Alkaline Phosphatase (45-117) U/L Total Protein (6.4-8.2) gm/dl Albumin (3.4-5.0) gm/dl Globulin (2.5-4.0) gm/dl Albumin/Globulin Ratio (0.9-2) Beta-Hydroxybutyric Acd TNP (0.2-2.81) mg/dl TSH (0.300-4.500) uIu/ml Specimen Hemolysis Salicylates < 1.7 L (2.8-20) mg/dl Acetaminophen < 2 L (10-30) ug/ml Ethyl Alcohol mg/dL (0-3) mg/dl Administered Medications Acetaminophen (Acetaminophen 325 Mg Tab) 650 mg PO Q4H PRN PRN Reason: pain/fever Stop: 12/07/20 00:00 Last Admin: 11/07/20 05:01 Dose: 650 mg Documented by: [id number] Benzonatate (Benzonatate 100 Mg Capsule) 100 mg PO TID PRN PRN Reason: cough Stop: 12/07/20 00:00 Last Admin: 11/07/20 05:02 Dose: 100 mg Documented by: [id number] Enoxaparin Sodium (Enoxaparin Inj 40 Mg/0.4 Ml Syr) 40 mg SQ Q12 JOE Stop: 12/07/20 08:59 Last Admin: 11/07/20 08:40 Dose: 40 mg Documented by: [id number] Guanfacine HCl (Guanfacine Hcl 1 Mg Tab) 2 mg PO QAM JOE Stop: 12/07/20 08:59 Last Admin: 11/07/20 08:36 Dose: 2 mg Documented by: [id number] Hydroxyzine HCl (Hydroxyzine Hcl 25 Mg Tab) 25 mg PO TID PRN PRN Reason: Anxiety Stop: 12/07/20 00:00 Last Admin: 11/07/20 08:36 Dose: 25 mg Documented by: [id number] Insulin Aspart (Insulin Aspart 100 Units/Ml 3 Ml Pen) 0 units SC ACHS [facility] Stop: 12/07/20 00:59 Last Admin: 11/07/20 15:17 Dose: 5 units Documented by: [id number] Cosigned by: [id number] Admin: 11/07/20 08:37 Dose: 3 units Documented by: [id number] Cosigned by: [id number] Admin: 11/07/20 03:02 Dose: 2 units Documented by: [id number] Cosigned by: [id number] Lorazepam (Lorazepam 0.5 Mg Tab) 0.25 - 0.5 mg PO Q6H PRN PRN Reason: Anxiety Stop: 12/07/20 03:05 Last Admin: 11/07/20 10:00 Dose: 0.25 mg Documented by: [id number] Meloxicam (Meloxicam 7.5 Mg Tab) 15 mg PO DAILY JOE Stop: 12/07/20 08:59 Last Admin: 11/07/20 08:36 Dose: 15 mg Documented by: [id number] Ondansetron HCl (Ondansetron Inj 2 Mg/Ml 2 Ml Vial) 4 mg IV Q6H PRN PRN Reason: Nausea Stop: 12/07/20 00:00 Last Admin: 11/07/20 07:38 Dose: 4 mg Documented by: [id number] Pantoprazole Sodium (Pantoprazole 40 Mg Tab) 40 mg PO BID JOE Stop: 12/07/20 08:59 Last Admin: 11/07/20 08:36 Dose: 40 mg Documented by: [id number] Polyethylene Glycol (Polyethylene (Miralax) 17 Gm Pack) 17 gm PO DAILY JOE Stop: 12/07/20 08:59 Last Admin: 11/07/20 09:09 Dose: 17 gm Documented by: [id number] Potassium Chloride (Potassium Chloride Crtab 20 Meq Tabcr) 20 meq PO TID JOE Stop: 11/08/20 09:01 Last Admin: 11/07/20 14:59 Dose: 20 meq Documented by: [id number] Vitamin D (Cholecalciferol 1,000 Units 25 Mcg Tab) 2,000 units PO QAM JOE Stop: 12/07/20 08:59 Last Admin: 11/07/20 11:29 Dose: 2,000 units Documented by: [id number] Zinc Sulfate (Zinc Sulfate 220 Mg Capsule) 220 mg PO QAM JOE Stop: 12/07/20 08:59 Last Admin: 11/07/20 11:29 Dose: 220 mg Documented by: [id number] Discontinued Medications Sodium Chloride (Nss 1000ml) 1,000 mls @ 999 mls/hr IV .Q1H1M JOE Stop: 11/06/20 20:30 Last Infusion: 11/07/20 00:16 Dose: 0 mls/hr Documented by: [id number] Admin: 11/06/20 20:45 Dose: 999 mls/hr Documented by: [id number] Insulin Glargine (Insulin Glargine Solostar 100 Units/Ml 3 Ml Pen) 5 units SC BID JOE Stop: 12/07/20 00:59 Last Admin: 11/07/20 08:39 Dose: 5 units Documented by: [id number] Cosigned by: [id number] Admin: 11/07/20 03:02 Dose: 5 units Documented by: [id number] Cosigned by: [id number] Insulin Human Regular (Novolin-R Insulin Per Unit Charge) 5 units IV NOW STA Stop: 11/06/20 22:25 Last Admin: 11/06/20 22:44 Dose: 5 units Documented by: [id number] Cosigned by: [id number] Lorazepam (Lorazepam 1 Mg Tab) 1 mg SL NOW STA Stop: 11/06/20 19:12 Last Admin: 11/06/20 19:15 Dose: 1 mg Documented by: [id number] Discharge Plan Visit Data Chief Complaint: Anxiety Stated Complaint: COVID +, ANXIETY ED Provider: Ifeanyi Lao Discharge Problem: Anxiety, Behavioral change, COVID-19 Patient Disposition: Admitted As Inpatient Discharge Instructions Interventions: ED Discharge Assessment Last Done: 11/06/20 23:24
[2020-11-06] MEDS ORDERED: LORazepam 1 MG TAB SL STA (19:11)
[2020-11-06] MEDS ORDERED: SODIUM CHLORIDE 0.9% 1000ML 1,000 ML IV SCH (19:30)
[2020-11-06 20:10] LABS: Hematocrit (blood only) 39.5 % (37-47); Hemoglobin 13.5 g/dL (12.0-16.0); Mean Corpuscular Hemoglobin 28.7 pg (25-34); Mean Corpuscular Hgb Conc 34.2 g/dL (32-36); Mean Corpuscular Volume 83.9 fL (80-100); Mean Platelet Volume 12.1 fL (7.4-10.4); Platelet Count 221 K/uL (130-400); RDW Coefficient of Variation 15.4 % (11.5-14.5); RDW Standard Deviation 46.9 fL (36.4-46.3); Red Blood Count 4.71 M/uL (4.2-5.4); White Blood Count 11.26 K/uL (4.8-10.8)
[2020-11-06 20:37] LABS: Basophils # (auto) 0.01 K/uL (0-0.2); Basophils % (auto) 0.1 %; Immature Granulocytes # (auto) 0.04 K/uL (0.00-0.02); Immature Granulocytes % (auto) 0.4 %; Lymphocytes # (auto) 0.42 K/uL (1.2-3.4); Lymphocytes % (auto) 3.7 %; Monocytes # (auto) 0.14 K/uL (0.11-0.59); Monocytes % (auto) 1.2 %; Neutrophils # (auto) 10.65 K/uL (1.4-6.5); Neutrophils % (auto) 94.6 %
[2020-11-06 20:39] LABS: Echinocytes 1+; Polychromasia 1+
[2020-11-06 20:49] LABS: Alanine Aminotransferase 33 U/L (12-78); BUN Creatinine Ratio 6.5 (10-20); Blood Urea Nitrogen 7 mg/dl (7-18); Calcium 8.7 mg/dl (8.5-10.1); Carbon Dioxide 22 mmol/L (21-32); Chloride 106 mmol/L (98-107); Creatinine Clr Calc Pharmacy 64.5 ml/min; Est GFR (African American) 86.9 ml/min; Glucose 340 mg/dl (70-99); Sodium 135 mmol/L (136-145)
[2020-11-06 20:56] LABS: Albumin Globulin Ratio 0.5 (0.9-2); Alkaline Phosphatase 65 U/L (45-117); Bilirubin,Total 0.3 mg/dl (0.2-1); Globulin 5.9 gm/dl (2.5-4.0); Total Protein 8.9 gm/dl (6.4-8.2)
[2020-11-06 21:30] LABS: Acetaminophen < 2 ug/ml (10-30); Potassium 3.6 mmol/L (3.5-5.1); Salicylate < 1.7 mg/dl (2.8-20)
[2020-11-06 21:38] LABS: Aspartate Aminotransferase 39 U/L (15-37)
[2020-11-06] MEDS ORDERED: NovoLIN-R INSULIN PER UNIT CHARGE IV STA (22:24)
--- NOTE | 2020-11-06 22:24 | History & Physical Report ---
Date of Service November 06, 2020 Assessment & Plan (1) COVID-19: Plan: Patient denies SOB. Saturations have been adequate. -Maintain isolation precautions -Lovenox 40 BID -Tessalon PRN -Tylenol PRN (2) Anxiety: Plan: Patient presents with worsening anxiety. She denies feeling anxious at present and is resting comfortably. -Continue Buspirone -Initiate Hydroxyzine 25mg po TID PRN -Psychiatry evaluation appreciated -Continue Lurasidone 20mg po qHS (3) Common variable immunodeficiency: Plan: Patient receives infusions of IVIG. Follows with Immunology. (4) Deep vein thrombosis (DVT) of left upper extremity: Plan: Patient has completed her course of anticoagulation (5) Elevated blood sugar: Plan: Administer insulin Check A1C Blood sugar checks History of Present Illness Chief Complaint: anxiety Primary Care Provider: FARAZ Jackson Smoker is a 30yo female with history of Common variable immunodeficiency, Kabuki Syndrome, Jocelynn-Taybi B syndrome. She was seen in the ER yesterday with complaint of cough. She was diagnosed with Covid-19 infection. She maintained her saturations and had no acute inpatient needs therefore she was discharged home to the care of her parents. She presents today with increased anxiety. She denies SI/HI, audio or visual hallucinations. Patient initially wanted to be discharged home, now wants to stay in the hospital. Per history, patient has been aggressive at times and family is having a difficult time managing her. Therefore, family is requesting admission. States that they do not feel safe with her at home right now. Patient is very hard of hearing. She denies chest pain. ER Course: Ativan Allergies Allergy/AdvReac Type Severity Reaction Status Date / Time amoxicillin Allergy Unknown Rash Verified 03/03/20 14:25 Home Medications Medication Instructions Recorded Confirmed Type fluticasone propionate 50 2 spray INTRANASAL HS PRN 05/10/18 03/03/20 History mcg/actuation nasal spray,suspension gabapentin 100 mg capsule 200 mg PO HS 05/10/18 03/03/20 History norethindrone acetate 5 mg tablet 10 mg PO HS 05/10/18 03/03/20 History lurasidone 20 mg tablet (Latuda) 20 mg PO HS 02/23/19 03/03/20 History Ivig 0 mg IV MONTHLY 04/18/19 11/05/20 History ibuprofen 200 mg tablet 400 mg PO Q6H PRN 04/18/19 03/03/20 History buspirone 15 mg tablet 15 mg PO BID 05/20/19 03/03/20 History acetaminophen 500 mg tablet 1,000 mg PO Q6H PRN 05/22/19 03/03/20 History (Tylenol Extra Strength) ascorbic acid (vitamin C) 1,000 mg 1 g PO QAM 06/06/19 03/03/20 History tablet (Vitamin C) [id number]-fvkfxqgo 250 2 tab PO Q6H PRN 06/06/19 03/03/20 History mg-250 mg-65 mg tablet (Excedrin Extra Strength) aluminum-magnesium hydroxide 200 15 ml PO Q4H PRN #3000 ml 06/07/19 03/03/20 Rx mg-200 mg/5 mL oral suspension (MAG-AL) famotidine 20 mg tablet (Pepcid) 20 mg PO HS #30 tab 06/07/19 03/03/20 Rx magnesium hydroxide 400 mg/5 mL 30 ml PO Q12H PRN #480 ml 06/07/19 03/03/20 Rx oral suspension (Milk of Magnesia) pantoprazole 40 mg tablet,delayed 40 mg PO BID #0 tab 06/07/19 03/03/20 Rx release cholecalciferol (vitamin D3) 25 25 mcg PO QAM 03/03/20 03/03/20 History mcg (1,000 unit) chewable tablet (Vitamin D3) guanfacine 1 mg tablet 1 mg PO QAM 03/03/20 03/03/20 History zinc 50 mg tablet 50 mg PO QAM 03/03/20 03/03/20 History Iron Infusion 0 mg IV ONCE 11/05/20 11/05/20 History Past Med/Surg History Medical History (Updated 11/07/20 @ 01:39 by Ayanna Shipley DO) Abdominal pain Altered mental status Deep vein thrombosis (DVT) of left upper extremity (01/2019) Elevated troponin H. pylori infection Headache Kabuki syndrome Lower GI bleeding Lower GI bleeding Medication reaction Pneumonia Jocelynn-Taybi syndrome URI (upper respiratory infection) VSD (ventricular septal defect) Surgical History (Updated 06/07/19 @ 19:22 by Arya Cabrera MD) H/O myringotomy History of ankle surgery History of partial hysterectomy History of repair of congenital cleft palate S/P VSD closure Status post Katerin fundoplication Family History (Updated 06/07/19 @ 19:21 by Arya Cabrera MD) Other Adopted Social History Smoking Status: Never smoker Second Hand Exposure: No; Hx Alcohol Use: No Hx Substance Use: No Preferred Language: Irish Communication Ability: Impaired Communication Ability Comment: [place], intellectual disability Chief Of Party Required: No Beliefs That Will Affect Care: None Current Living Situation: Family Current Living Situation Comment: Lives with parents Feels Safe at Home: Yes Assistive Devices: Glasses Review of Systems Review of Systems: Difficult to obtain secondary to mental health condition. Physical Exam Physical Exam: General: patient resting comfortably, NAD, hard of hearing Skin: warm, dry, intact, no rashes or lesions HEENT: NC/AT, PERRL, EOMI, anicteric sclera, conjunctiva without injection, external ear normal to inspection and nontender, nares patent, moist mucus membranes, dentition intact, no oropharyngeal lesions, neck supple, trachea midline, no LAD, no thyromegaly, no JVD Heart: +S1/S2, regular, no m/r/g Lungs: equal air entry bilaterally, no rales/rhonchi/wheezes Abd: +BS, soft, NT/ND, no masses/organomegaly/ascites Ext: warm, 2+ pulses in UE/LE bilaterally, no clubbing/cyanosis or edema Neuro: nonfocal, patient AA&O x 4, speech intact, no facial droop, moving all extremities on command with equal strength 5/5 Results & Data Results & Data ([facility]) Vital Signs (Past 12 Hours) Vital Signs Temp Pulse Pulse Resp BP BP Pulse Ox 11/06/20 20:45 99 H 18 127/77 95 11/06/20 18:45 36.4 C L 125 H 18 160/95 H 95 Laboratory Results Laboratory Results WBC 11.26 K/uL (4.8-10.8) H 11/06/20 19:48 RBC 4.71 M/uL (4.2-5.4) 11/06/20 19:48 Hgb 13.5 g/dL (12.0-16.0) 11/06/20 19:48 Hct 39.5 % (37-47) 11/06/20 19:48 MCV 83.9 fL (80-100) 11/06/20 19:48 MCH 28.7 pg (25-34) 11/06/20 19:48 MCHC 34.2 g/dL (32-36) 11/06/20 19:48 RDW Std Deviation 46.9 fL (36.4-46.3) H 11/06/20 19:48 RDW Coeff of Ally 15.4 % (11.5-14.5) H 11/06/20 19:48 Plt Count 221 K/uL (130-400) 11/06/20 19:48 MPV 12.1 fL (7.4-10.4) H 11/06/20 19:48 Immature Gran % (Auto) 0.4 % 11/06/20 19:48 Neut % (Auto) 94.6 % 11/06/20 19:48 Lymph % (Auto) 3.7 % 11/06/20 19:48 [place] % (Auto) 1.2 % 11/06/20 19:48 Eos % (Auto) 0.0 % 11/06/20 19:48 Baso % (Auto) 0.1 % 11/06/20 19:48 Neut # (Auto) 10.65 K/uL (1.4-6.5) H 11/06/20 19:48 Lymph # (Auto) 0.42 K/uL (1.2-3.4) L 11/06/20 19:48 [place] # (Auto) 0.14 K/uL (0.11-0.59) 11/06/20 19:48 Eos # (Auto) 0.00 K/uL (0-0.5) 11/06/20 19:48 Baso # (Auto) 0.01 K/uL (0-0.2) 11/06/20 19:48 Immature Gran # (Auto) 0.04 K/uL (0.00-0.02) H 11/06/20 19:48 Polychromasia 1+ 11/06/20 19:48 Echinocytes 1+ 11/06/20 19:48 Sodium 135 mmol/L (136-145) L 11/06/20 19:48 Potassium 3.6 mmol/L (3.5-5.1) 11/06/20 20:45 Chloride 106 mmol/L (98-107) 11/06/20 19:48 Carbon Dioxide 22 mmol/L (21-32) 11/06/20 19:48 Anion Gap 8.0 (3-11) 11/06/20 19:48 BUN 7 mg/dl (7-18) 11/06/20 19:48 Creatinine 1.00 mg/dl (0.6-1.2) 11/06/20 19:48 Est Cr Clr Drug Dosing 64.5 ml/min 11/06/20 19:48 Est GFR ( Amer) 86.9 ml/min 11/06/20 19:48 Est GFR (Non-Af Amer) 75.0 ml/min 11/06/20 19:48 BUN/Creatinine Ratio 6.5 (10-20) L 11/06/20 19:48 Glucose 340 mg/dl (70-99) H* 11/06/20 19:48 POC Glucose 202 mg/dl (70-99) H 11/07/20 00:49 Calcium 8.7 mg/dl (8.5-10.1) 11/06/20 19:48 Total Bilirubin 0.3 mg/dl (0.2-1) 11/06/20 19:48 AST 39 U/L (15-37) H 11/06/20 20:45 ALT 33 U/L (12-78) 11/06/20 19:48 Alkaline Phosphatase 65 U/L (45-117) 11/06/20 19:48 Total Protein 8.9 gm/dl (6.4-8.2) H 11/06/20 19:48 Albumin 3.0 gm/dl (3.4-5.0) L 11/06/20 19:48 Globulin 5.9 gm/dl (2.5-4.0) H 11/06/20 19:48 Albumin/Globulin Ratio 0.5 (0.9-2) L 11/06/20 19:48 Beta-Hydroxybutyric Acd TNP 11/06/20 20:45 TSH 1.390 uIu/ml (0.300-4.500) 11/06/20 19:48 Specimen Hemolysis 11/06/20 20:45 Salicylates < 1.7 mg/dl (2.8-20) L 11/06/20 20:45 Acetaminophen < 2 ug/ml (10-30) L 11/06/20 20:45 Ethyl Alcohol mg/dL < 3.0 mg/dl (0-3) 11/06/20 19:48 Code Status & VTE Plan VTE Prophylaxis Plan VTE Prophylaxis will be ordered: Yes PG Care Time/CCT Total # of Minutes Spent Total Time Spent with Patient: Total time spent is greater than 50% in coordination of care (as documented) at patient's floor/unit and/or counseling patient: Coding Level of Care Code INT OBSERVATION CARE 50M LVL 2 Diagnoses COVID-19 U07.1 Anxiety F41.9 Common variable immunodeficiency D83.9 Deep vein thrombosis (DVT) of left upper extremity I82.622 Elevated blood sugar R73.9
[2020-11-07] MEDS ORDERED: GLUCOSE 40% GEL 15 GM TUBE PO PRN (00:01)
[2020-11-07] MEDS ORDERED: DEXTROSE 50% 50 ML SYRINGE IV PRN (00:01)
[2020-11-07] MEDS ORDERED: CARBOHYDRATES FOR HYPOGLYCEMIA PO PRN (00:01)
[2020-11-07] MEDS ORDERED: GLUCAGON FOR INJ 1 MG VIAL SQ PRN (00:01)
[2020-11-07] MEDS ORDERED: GLUCOSE 10 TABS/TUBE PO PRN (00:01)
[2020-11-07] MEDS ORDERED: ONDANSETRON INJ 2 MG/ML 2 ML VIAL IV PRN (00:01)
[2020-11-07] MEDS: INSULIN ASPART 100 UNITS/ML 3 ML PEN SC SCH ×5 (03:02→20:23)
[2020-11-07] MEDS: INSULIN GLARGINE SOLOSTAR 100 UNITS/ML 3 ML PEN SC SCH ×2 (03:02→08:39)
[2020-11-07] MEDS ORDERED: LORazepam 0.5 MG TAB PO PRN (03:06)
[2020-11-07] MEDS: ACETAMINOPHEN 325 MG TAB PO PRN (05:01)
[2020-11-07] MEDS: BENZONATATE 100 MG CAPSULE PO PRN (05:02)
[2020-11-07 07:59] LABS: Appearance Urine Clear (Clear); Bacteria Urine Automated 1+ (Negative); Bilirubin Urine Negative (Negative); Blood Urine Trace (Negative); Color Urine Yellow; Glucose Urine UA Trace (Negative); Ketones Urine 2+ (Negative); Leukocyte Esterase Urine Negative (Negative); Nitrite Urine Negative (Negative); Protein Urine 2+ (Negative); RBC Urine Automated 0-4 /hpf (0-4); Specific Gravity Urine 1.017 (1.000-1.030); Urobilinogen Urine Negative (Negative); pH Urine 6.5 (4.5-7.5)
[2020-11-07 08:17] LABS: Amphetamines+Metham, Urine Neg (Neg); Barbiturates, Urine Neg (Neg); Benzodiazepine, Urine Neg (Neg); Cocaine, Urine Neg (Neg); MDMA (Ecstacy), Urine Neg (Neg); Methadone, Urine Neg (Neg); Opiate, Urine Neg (Neg); Phencyclidine, Urine Neg (Neg)
[2020-11-07] MEDS: guanFACINE HCL 1 MG TAB PO SCH (08:36)
[2020-11-07] MEDS: hydrOXYzine HCl 25 MG TAB PO PRN (08:36)
[2020-11-07] MEDS: PANTOprazole 40 MG TAB PO SCH ×2 (08:36→20:01)
[2020-11-07] MEDS: MELOXICAM 7.5 MG TAB PO SCH (08:36)
[2020-11-07 08:38] LABS: Hematocrit (blood only) 34.7 % (37-47); Hemoglobin 11.6 g/dL (12.0-16.0); Immature Granulocytes # (auto) 0.02 K/uL (0.00-0.02); Immature Granulocytes % (auto) 0.2 %; Lymphocytes # (auto) 0.86 K/uL (1.2-3.4); Mean Corpuscular Hemoglobin 28.2 pg (25-34); Mean Corpuscular Hgb Conc 33.4 g/dL (32-36); Mean Corpuscular Volume 84.4 fL (80-100); Mean Platelet Volume 11.6 fL (7.4-10.4); Monocytes # (auto) 0.33 K/uL (0.11-0.59); Monocytes % (auto) 3.5 %; Neutrophils # (auto) 8.33 K/uL (1.4-6.5); Neutrophils % (auto) 87.3 %; Platelet Count 236 K/uL (130-400); RDW Coefficient of Variation 15.5 % (11.5-14.5); RDW Standard Deviation 47.7 fL (36.4-46.3); Red Blood Count 4.11 M/uL (4.2-5.4); White Blood Count 9.54 K/uL (4.8-10.8)
[2020-11-07] MEDS: ENOXAPARIN INJ 40 MG/0.4 ML SYR SQ SCH ×2 (08:40→20:02)
[2020-11-07] MEDS ORDERED: LURASIDONE HCL 40 MG TAB PO SCH (09:00)
[2020-11-07 09:05] LABS: Alanine Aminotransferase 28 U/L (12-78); Albumin Level 2.7 gm/dl (3.4-5.0); Aspartate Aminotransferase 33 U/L (15-37); BUN Creatinine Ratio 8.6 (10-20); Bilirubin Direct < 0.1 mg/dl (0-0.2); Blood Urea Nitrogen 7 mg/dl (7-18); Calcium 8.3 mg/dl (8.5-10.1); Carbon Dioxide 23 mmol/L (21-32); Chloride 106 mmol/L (98-107); Creatinine Clr Calc Pharmacy 83.7 ml/min; Est GFR (African American) 119.2 ml/min; Est GFR (Non-African American) 102.9 ml/min; Glucose 200 mg/dl (70-99); Potassium 3.4 mmol/L (3.5-5.1); Sodium 137 mmol/L (136-145)
[2020-11-07 09:07] LABS: Alkaline Phosphatase 60 U/L (45-117); Bilirubin,Total 0.2 mg/dl (0.2-1); Total Protein 8.1 gm/dl (6.4-8.2)
[2020-11-07] MEDS: POLYETHYLENE (MIRALAX) 17 GM PACK PO SCH (09:09)
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
[2020-11-07] MEDS: ZINC SULFATE 220 MG CAPSULE PO SCH (11:29)
[2020-11-07] MEDS: CHOLECALCIFEROL 1,000 UNITS 25 MCG TAB PO SCH (11:29)
[2020-11-07] MEDS ORDERED: MELATONIN 3 MG TAB PO PRN (14:28)
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
[2020-11-07] MEDS ORDERED: guanFACINE HCL 1 MG TAB PO ONE (14:45)
--- NOTE | 2020-11-07 14:54 | XRay Report ---
XR chest 1V portable HISTORY: Shortness of breath. COVID pneumonia COMPARISON: 11/05/2020. FINDINGS: Interval progression of the multifocal bilateral airspace opacities consistent with a viral pneumonia. The heart remains mildly enlarged. No pleural effusions. No pneumothorax. IMPRESSION: Interval progression of the multifocal bilateral pneumonia. ACT 112: Negative or not required by law. Electronically signed by: Joni Shields M.D. 11/07/2020 2:53 PM
[2020-11-07] MEDS: POTASSIUM CHLORIDE CRTAB 20 MEQ TABCR PO SCH ×2 (14:59→20:00)
[2020-11-07] MEDS: cefTRIAXone SODIUM 1,000 MG in DEXTROSE 5% 50 ML IV SCH (16:52)
[2020-11-07] MEDS: LURASIDONE HCL 40 MG TAB PO SCH (16:53)
[2020-11-07] MEDS: DOXYCYCLINE HYCLATE 100 MG in DEXTROSE 5% 100 ML IV SCH (17:44)
[2020-11-07] MEDS: FAMOTIDINE 20 MG TAB PO SCH (20:01)
[2020-11-07] MEDS: NORETHINDRONE 5 MG TAB PO SCH (20:01)
[2020-11-07] MEDS: guaiFENesin 600 MG TABCR PO SCH (20:01)
[2020-11-07] MEDS: GABAPENTIN 300 MG CAP PO SCH (20:01)
[2020-11-07] MEDS: busPIRone 5 MG TAB PO SCH (20:02)
[2020-11-07] MEDS: traZODone HCL 50 MG TAB PO SCH (20:22)
[2020-11-07] MEDS ORDERED: INSULIN GLARGINE SOLOSTAR 100 UNITS/ML 3 ML PEN SC SCH (21:00)
[2020-11-08] MEDS: DOXYCYCLINE HYCLATE 100 MG in DEXTROSE 5% 100 ML IV SCH (05:16)
[2020-11-08] MEDS: BENZONATATE 100 MG CAPSULE PO PRN (05:29)
[2020-11-08 07:21] LABS: Estimated Average Glucose 137 mg/dl; Hemoglobin A1C 6.4 % (4.5-5.6)
--- NOTE | 2020-11-08 08:33 | Hospitalist Progress Note ---
Date of Service November 08, 2020 Assessment & Plan (1) Pneumonia due to COVID-19 virus: Plan: Initial symptoms onset 11/03 (day 6). Suspect clinical course for her to get worse before she starts getting better. Aim O2 sats > 94% Start dexamethasone and remdesivir given hypoxia today with elevated CRP and worsening CXR. She has CVID, and despite recent administration of IVIG on Sunday last week, she is at high risk of bacterial superinfection. Continue ceftriaxone/doxycycline (switched IV -> PO as burning on administration) with mildly elevated procalcitonin. Continue for 5-7 days depending on clinical course. Rocephin will also cover possible UTI. Continue flutter valve and incentive spirometry. Added Mucinex (2) UTI (urinary tract infection): Plan: No symptoms of this. Urine culture with mixed growth. Continue antibiotics for pneumonia above but UTI essentially ruled out. (3) Hypokalemia: Plan: Resolved. BMP daily. Replace as needed. KCl 60 meq PO given yesterday. (4) Elevated blood sugar: Plan: HbA1C 6.4 (suspect low glucosylation based on serum glucose levels). Now starting on dexamethasone will consult pharmacy to help with glycemic control during inpatient stay. Mother is diabetic so she has plenty of knowledge about such. (5) Common variable immunodeficiency: Plan: Patient receives infusions of IVIG. Follows with Immunology at [place]. s/p IVIG Sunday last week. (6) Anxiety: Plan: Patient presents with worsening anxiety. Psych consult completed and appreciated. Remains on buspar. Hydroxyzine 25mg po TID PRN started by admitting MD. Remains on Lurasidone and guanfacine. Psych to adjust these. Continue melatonin for insomnia. Cont trazodone. (7) Deep vein thrombosis (DVT) of left upper extremity: Plan: history of. Patient has completed her course of anticoagulation for such. For DVT proph - COVID dosing lovenox. (8) Behavioral change: Plan: psych consult appreciated. recs appreciated. 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 Started on oxygen this morning as O2 sats intermittently dropping below 94%. No fever, chills or diarrhea. Reports doxycycline has been burning on administration. Mother request liberalization of diet to include pancakes. Discussed starting remdesivir and dexamethasone which her mother agrees to. Review of Systems Review of Systems: All systems reviewed & are unremarkable except as noted in HPI & below Physical Exam Constitutional: well nourished; no acute distress Respiratory: normal respiratory effort Auscultation: + crackles (fine posteriorly); no diminished lung sounds and no wheezes Cardiovascular: RRR, no murmur, no edema Gastrointestinal (Abdomen): Percussion/Palpation: abdomen soft; abdomen nontender Musculoskeletal: short lower extremities Skin: no rashes, warm and dry Neurologic: awake; not confused Psychiatric: A+Ox3, euthymic affect PG Care Time/CCT Total # of Minutes Spent Total Time Spent with Patient: Total time spent is greater than 50% in coordination of care (as documented) at patient's floor/unit and/or counseling patient: Coding Level of Care Code 97451 Subseq Hosp Care Lvl 2 Diagnoses Pneumonia due to COVID-19 virus U07.1; J12.82 UTI (urinary tract infection) N39.0 Hypokalemia E87.6 Elevated blood sugar R73.9 Common variable immunodeficiency D83.9 Anxiety F41.9 Deep vein thrombosis (DVT) of left upper extremity I82.622 Behavioral change R46.89 Kabuki syndrome Q89.8 Jocelynn-Taybi syndrome Q87.2 DVT prophylaxis Z29.9
[2020-11-08] MEDS ORDERED: INSULIN GLARGINE SOLOSTAR 100 UNITS/ML 3 ML PEN SC SCH ×2 (09:00→21:00)
[2020-11-08] MEDS: INSULIN ASPART 100 UNITS/ML 3 ML PEN SC SCH ×4 (09:10→21:09)
[2020-11-08] MEDS: MELOXICAM 7.5 MG TAB PO SCH (09:12)
[2020-11-08] MEDS: PANTOprazole 40 MG TAB PO SCH ×2 (09:12→21:19)
[2020-11-08] MEDS: ZINC SULFATE 220 MG CAPSULE PO SCH (09:12)
[2020-11-08] MEDS: guanFACINE HCL 1 MG TAB PO SCH ×2 (09:12→14:10)
[2020-11-08] MEDS: busPIRone 5 MG TAB PO SCH ×3 (09:13→21:19)
[2020-11-08] MEDS: cefTRIAXone SODIUM 1,000 MG in DEXTROSE 5% 50 ML IV SCH (09:13)
[2020-11-08] MEDS: CHOLECALCIFEROL 1,000 UNITS 25 MCG TAB PO SCH (09:13)
[2020-11-08] MEDS: POLYETHYLENE (MIRALAX) 17 GM PACK PO SCH (09:13)
[2020-11-08] MEDS: guaiFENesin 600 MG TABCR PO SCH ×2 (09:13→21:21)
[2020-11-08] MEDS: ENOXAPARIN INJ 40 MG/0.4 ML SYR SQ SCH ×2 (09:13→21:40)
[2020-11-08] MEDS: POTASSIUM CHLORIDE CRTAB 20 MEQ TABCR PO SCH (09:14)
[2020-11-08] MEDS: hydrOXYzine HCl 25 MG TAB PO PRN (09:17)
[2020-11-08] MEDS ORDERED: INSULIN GLARGINE SOLOSTAR 100 UNITS/ML 3 ML PEN SC ONE (09:42)
[2020-11-08 12:25] LABS: BUN Creatinine Ratio 11.9 (10-20); C Reactive Protein 9.35 mg/dl (0-0.29); Calcium 8.3 mg/dl (8.5-10.1); Creatinine Clr Calc Pharmacy 89.5 ml/min; Est GFR (African American) 129.3 ml/min; Est GFR (Non-African American) 111.6 ml/min; Potassium 3.9 mmol/L (3.5-5.1)
--- NOTE | 2020-11-08 14:09 | Psychiatric Progress Note ---
Date of Service November 08, 2020 Impression / Recommendations Impression 30 yo female with complex genetic condition, limited coping skills due to [place] and ID, presents with progressive increase in acting out behaviors at home. Treatment is complicated by need for isolation on med floor due to COVID+ status. 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 LM for outpatient psychiatric prescriber to coordinate care. Reviewed that patient will not be able to be admitted to an inpatient psych unit given her need for isolation (nor will she meet criteria if behavior remains stable here). Confirmed that she can return to her day program for socialization when off isolation. CM is working to get family additional behavioral services (brother may be identified patient as previous to this year did not really have to engage in much bmod/behavioral pj to control patient's behavior). Dr. Correa updated. 11/07/20: COVID likely exacerbating underlying condition, continue Latuda 40 mg with pm meal as recent increase and no evidence of akathisia. PM breakthrough likely rebound effective from guanfacine and/or buspar dosing which is typically doses 2-3 times a day (unless guanfacine ER). Mother supports these changes (restart Buspar regular with shift to TId dosing, add 2 pm dose of Tenex). Patient has hx of surgical correction of VSD but is cleared for guanfacine. Dr. Krause updated and will consider LH/FSH. Risk Factors Assessment Do You Have Access To A Gun?: No Interval History Identifying Information 30 yo female with behavioral disturbance, anxiety (primarily perseveration) related to ID and genetic condition, COVID + on med floor so exam in house room to room zoom for telehealth. Mother at bedside as patient has limited attention and communication skills. Chief Complaint "she's calmer today" per mom. Review of Systems Meal Information no SI/HI/yelling or appearing to respond to internal stimuli Telehealth Telehealth Telehealth Options: 2-way audio and video For the duration of the visit, provider was performing the assessment from: The same facility as the patient After establishing a telemedicine visit, patient was: Patient was verified with two unique identifiers, Patient/authorized rep acknowledged consent and understanding and Gave permission to continue telehealth session Total Time Spent (minutes): 20 Subjective Subjective Patient was seen & assessed and interval progress reviewed. Seen with liaison nurse. Patient slept better but mainly disrupted by cough. No afternoon outburst yesterday. Anxious this am as mother didn't have access to her own (mother's) metformin and patient worried about her diabetes. More redirectible. Less tearful. Physical Exam Psychiatric Orientation: alert, oriented to person and oriented to place Apperance: appeared stated age Eye Contact: + fair eye contact Motor Behavior: no abnormal motor movements Speech: + abnormal rate/rhythm/volume of speech (loud, nonspontaneous) Affect: + constricted affect Thought Process: + concrete thought process Thought Content: reality based without delusions Suicidal Thoughts: denies suicidal thoughts Homicidal Thoughts: denies homicidal thoughts Hallucinations: no auditory hallucinations and no visual hallucinations Cognition: language grossly intact Estimated Intelligence: + below average estimated intelligence Insight: + poor insight Judgement: + poor judgement Vital Signs (Past 24 Hours) Last Vital Signs Temp 36.5 C 11/08/20 09:06 Pulse 84 11/08/20 09:06 Resp 20 11/08/20 09:06 BP 115/67 11/08/20 09:06 Pulse Ox 91 11/08/20 09:06 Results & Data ([facility]) Laboratory Results Laboratory Results - last 24 hr 11/07/20 11/07/20 11/07/20 08:11 17:41 20:21 Sodium Potassium Chloride Carbon Dioxide Anion Gap BUN Creatinine Est Cr Clr Drug Dosing Est GFR ( Amer) Est GFR (Non-Af Amer) BUN/Creatinine Ratio Glucose POC Glucose 158 H 124 H Estimat Average Glucose 137 Hemoglobin A1c 6.4 H Calcium C-Reactive Protein Procalcitonin 11/08/20 11/08/20 11/08/20 08:58 11:21 11:21 Sodium 137 Potassium 3.9 Chloride 107 Carbon Dioxide 25 Anion Gap 5.0 BUN 9 Creatinine 0.72 Est Cr Clr Drug Dosing 89.5 Est GFR ( Amer) 129.3 Est GFR (Non-Af Amer) 111.6 BUN/Creatinine Ratio 11.9 Glucose 138 H POC Glucose 77 Estimat Average Glucose Hemoglobin A1c Calcium 8.3 L C-Reactive Protein 9.35 H Procalcitonin 0.53 H 11/08/20 12:18 Sodium Potassium Chloride Carbon Dioxide Anion Gap BUN Creatinine Est Cr Clr Drug Dosing Est GFR ( Amer) Est GFR (Non-Af Amer) BUN/Creatinine Ratio Glucose POC Glucose 110 H Estimat Average Glucose Hemoglobin A1c Calcium C-Reactive Protein Procalcitonin Current Inpatient Medications Current Inpatient Medications: Current Inpatient Medications Acetaminophen (Acetaminophen 325 Mg Tab) 650 mg PO Q4H PRN PRN Reason: pain/fever Stop: 12/07/20 00:00 Last Admin: 11/07/20 05:01 Dose: 650 mg Documented by: Benzonatate (Benzonatate 100 Mg Capsule) 100 mg PO TID PRN PRN Reason: cough Stop: 12/07/20 00:00 Last Admin: 11/08/20 05:29 Dose: 100 mg Documented by: Buspirone HCl (Buspirone 5 Mg Tab) 10 mg PO TID JOE Stop: 12/07/20 20:59 Last Admin: 11/08/20 09:13 Dose: 10 mg Documented by: Dextrose (Dextrose 50% 50 Ml Syringe) 25 - 50 ml IV UD PRN; Protocol PRN Reason: Hypoglycemia Protocol Stop: 12/07/20 00:00 Enoxaparin Sodium (Enoxaparin Inj 40 Mg/0.4 Ml Syr) 40 mg SQ Q12 JOE Stop: 12/07/20 08:59 Last Admin: 11/08/20 09:13 Dose: 40 mg Documented by: Famotidine (Famotidine 20 Mg Tab) 20 mg PO HS JOE Stop: 12/07/20 20:59 Last Admin: 11/07/20 20:01 Dose: 20 mg Documented by: Gabapentin (Gabapentin 300 Mg Cap) 300 mg PO HS JOE Stop: 12/07/20 20:59 Last Admin: 11/07/20 20:01 Dose: 300 mg Documented by: Glucagon (Glucagon For Inj 1 Mg Vial) 1 mg SQ UD PRN; Protocol PRN Reason: Hypoglycemia Protocol Stop: 12/07/20 00:00 Glucose (Glucose 10 Tabs/Tube) 4 - 8 tabs PO UD PRN; Protocol PRN Reason: Hypoglycemia Protocol Stop: 12/07/20 00:00 Glucose (Glucose 40% Gel 15 Gm Tube) 15 - 30 gm PO UD PRN; Protocol PRN Reason: Hypoglycemia Protocol Stop: 12/07/20 00:00 Guaifenesin (Guaifenesin 600 Mg Tabcr) 600 mg PO Q12 JOE Stop: 12/07/20 20:59 Last Admin: 11/08/20 09:13 Dose: 600 mg Documented by: Guanfacine HCl (Guanfacine Hcl 1 Mg Tab) 2 mg PO QAM [facility] Stop: 12/07/20 08:59 Last Admin: 11/08/20 09:12 Dose: 2 mg Documented by: Guanfacine HCl (Guanfacine Hcl 1 Mg Tab) 1 mg PO DAILY@1400 [facility] Stop: 12/08/20 13:59 Hydroxyzine HCl (Hydroxyzine Hcl 25 Mg Tab) 25 mg PO TID PRN PRN Reason: Anxiety Stop: 12/07/20 00:00 Last Admin: 11/08/20 09:17 Dose: 25 mg Documented by: Ceftriaxone Sodium 1,000 mg/ (Dextrose) 60 mls @ 100 mls/hr IV DAILY [facility]; Protocol Stop: 11/12/20 14:59 Last Infusion: 11/08/20 09:54 Dose: Infused Documented by: Doxycycline Hyclate 100 mg/ (Dextrose) 110 mls @ 50 mls/hr IV Q12H [facility]; Protocol Stop: 11/14/20 16:59 Last Infusion: 11/08/20 07:47 Dose: Infused Documented by: Insulin Aspart (Insulin Aspart 100 Units/Ml 3 Ml Pen) 0 units SC ACHS [facility] Stop: 12/07/20 00:59 Last Admin: 11/08/20 09:10 Dose: Not Given Documented by: Insulin Glargine (Insulin Glargine Solostar 100 Units/Ml 3 Ml Pen) 5 units SC BID [facility] Stop: 12/08/20 20:59 Lorazepam (Lorazepam 0.5 Mg Tab) 0.25 - 0.5 mg PO Q6H PRN PRN Reason: Anxiety Stop: 12/07/20 03:05 Last Admin: 11/07/20 10:00 Dose: 0.25 mg Documented by: Lurasidone HCl (Lurasidone Hcl 40 Mg Tab) 40 mg PO DAILY@1700 [facility] Stop: 12/07/20 16:59 Last Admin: 11/07/20 16:53 Dose: 40 mg Documented by: Melatonin (Melatonin 3 Mg Tab) 3 mg PO HS PRN PRN Reason: Sleep Stop: 12/07/20 14:27 Meloxicam (Meloxicam 7.5 Mg Tab) 15 mg PO DAILY [facility] Stop: 12/07/20 08:59 Last Admin: 11/08/20 09:12 Dose: 15 mg Documented by: Miscellaneous (Carbohydrates For Hypoglycemia ) 15 - 30 gm PO UD PRN PRN Reason: Hypoglycemia Protocol Stop: 12/07/20 00:00 Norethindrone (Norethindrone 5 Mg Tab) 10 mg PO HS JOE Stop: 12/07/20 20:59 Last Admin: 11/07/20 20:01 Dose: 10 mg Documented by: Ondansetron HCl (Ondansetron Inj 2 Mg/Ml 2 Ml Vial) 4 mg IV Q6H PRN PRN Reason: Nausea Stop: 12/07/20 00:00 Last Admin: 11/07/20 07:38 Dose: 4 mg Documented by: Pantoprazole Sodium (Pantoprazole 40 Mg Tab) 40 mg PO BID JOE Stop: 12/07/20 08:59 Last Admin: 11/08/20 09:12 Dose: 40 mg Documented by: Polyethylene Glycol (Polyethylene (Miralax) 17 Gm Pack) 17 gm PO DAILY JOE Stop: 12/07/20 08:59 Last Admin: 11/08/20 09:13 Dose: 17 gm Documented by: Trazodone HCl (Trazodone Hcl 50 Mg Tab) 50 mg PO HS [facility] Stop: 12/07/20 20:59 Last Admin: 11/07/20 20:22 Dose: 50 mg Documented by: Vitamin D (Cholecalciferol 1,000 Units 25 Mcg Tab) 2,000 units PO QAM JOE Stop: 12/07/20 08:59 Last Admin: 11/08/20 09:13 Dose: 2,000 units Documented by: Zinc Sulfate (Zinc Sulfate 220 Mg Capsule) 220 mg PO QAM JOE Stop: 12/07/20 08:59 Last Admin: 11/08/20 09:12 Dose: 220 mg Documented by:
[2020-11-08] MEDS ORDERED: PHARMACY GLYCEMIC MGMT CONSULT PRN (15:49)
[2020-11-08] MEDS ORDERED: dexAMETHasone 6 MG in SYRINGE 0 ML IV ONE (16:00)
[2020-11-08] MEDS ORDERED: REMDESIVIR 200 MG in SODIUM CHLORIDE 0.9% 210 ML IV ONE (17:00)
[2020-11-08] MEDS: LURASIDONE HCL 40 MG TAB PO SCH (18:01)
[2020-11-08] MEDS: INSULIN GLARGINE SOLOSTAR 100 UNITS/ML 3 ML PEN SC SCH (21:13)
[2020-11-08] MEDS: traZODone HCL 50 MG TAB PO SCH (21:18)
[2020-11-08] MEDS: NORETHINDRONE 5 MG TAB PO SCH (21:20)
[2020-11-08] MEDS: GABAPENTIN 300 MG CAP PO SCH (21:21)
[2020-11-08] MEDS: DOXYCYCLINE HYCLATE 100 MG CAP PO SCH (21:22)
[2020-11-08] MEDS: FAMOTIDINE 20 MG TAB PO SCH (21:41)
[2020-11-08] MEDS: SODIUM CHLORIDE 0.9% 10ML FLUSH IV SCH (21:44)
[2020-11-08] MEDS ORDERED: FLUTICASONE PROPIONATE NA SPR 16 GM BTL PRN (22:32)
[2020-11-09] MEDS: INSULIN ASPART 100 UNITS/ML 3 ML PEN SC SCH ×6 (00:25→21:19)
[2020-11-09] MEDS: BENZONATATE 100 MG CAPSULE PO PRN ×2 (03:48→13:35)
[2020-11-09 06:30] LABS: Hematocrit (blood only) 33.8 % (37-47); Hemoglobin 11.2 g/dL (12.0-16.0); Immature Granulocytes # (auto) 0.02 K/uL (0.00-0.02); Immature Granulocytes % (auto) 0.7 %; Lymphocytes # (auto) 0.47 K/uL (1.2-3.4); Lymphocytes % (auto) 15.4 %; Mean Corpuscular Hemoglobin 27.5 pg (25-34); Mean Corpuscular Hgb Conc 33.1 g/dL (32-36); Mean Platelet Volume 12.3 fL (7.4-10.4); Monocytes # (auto) 0.22 K/uL (0.11-0.59); Monocytes % (auto) 7.2 %; Neutrophils # (auto) 2.35 K/uL (1.4-6.5); Neutrophils % (auto) 76.7 %; Platelet Count 232 K/uL (130-400); RDW Coefficient of Variation 16.2 % (11.5-14.5); Red Blood Count 4.07 M/uL (4.2-5.4); White Blood Count 3.06 K/uL (4.8-10.8)
[2020-11-09 07:13] LABS: Albumin Globulin Ratio 0.5 (0.9-2); Albumin Level 2.4 gm/dl (3.4-5.0); BUN Creatinine Ratio 14.4 (10-20); Bilirubin,Total 0.3 mg/dl (0.2-1); C Reactive Protein 9.34 mg/dl (0-0.29); Calcium 8.7 mg/dl (8.5-10.1); Creatinine Clr Calc Pharmacy 94.8 ml/min; Est GFR (African American) 135.1 ml/min; Est GFR (Non-African American) 116.6 ml/min; Total Protein 7.4 gm/dl (6.4-8.2)
[2020-11-09] MEDS: guanFACINE HCL 1 MG TAB PO SCH ×2 (08:51→13:35)
[2020-11-09] MEDS: MELOXICAM 7.5 MG TAB PO SCH (08:53)
[2020-11-09] MEDS: POLYETHYLENE (MIRALAX) 17 GM PACK PO SCH (08:53)
[2020-11-09] MEDS: ZINC SULFATE 220 MG CAPSULE PO SCH (08:53)
[2020-11-09] MEDS: PANTOprazole 40 MG TAB PO SCH ×2 (08:54→20:18)
[2020-11-09] MEDS: busPIRone 5 MG TAB PO SCH ×3 (08:54→20:19)
[2020-11-09] MEDS: guaiFENesin 600 MG TABCR PO SCH ×2 (08:54→20:20)
[2020-11-09] MEDS: DOXYCYCLINE HYCLATE 100 MG CAP PO SCH ×2 (08:55→20:20)
[2020-11-09] MEDS: ENOXAPARIN INJ 40 MG/0.4 ML SYR SQ SCH ×2 (08:55→20:21)
[2020-11-09] MEDS: dexAMETHasone 6 MG in SYRINGE 0 ML IV SCH (08:56)
[2020-11-09] MEDS: CHOLECALCIFEROL 1,000 UNITS 25 MCG TAB PO SCH (08:56)
[2020-11-09] MEDS: cefTRIAXone SODIUM 1,000 MG in DEXTROSE 5% 50 ML IV SCH (08:56)
[2020-11-09 09:04] LABS: Potassium 4.1 mmol/L (3.5-5.1)
[2020-11-09] MEDS: INSULIN GLARGINE SOLOSTAR 100 UNITS/ML 3 ML PEN SC SCH (09:42)
--- NOTE | 2020-11-09 09:47 | Communication Note ---
Date of Service: November 09, 2020 spoke with mother, interim progress/chart reviewed. Patient received IV steroids and antivirals this am and mother anticipates medically hospitalized for next 2- 3 days. From a psych standpoint the patient is feeling better and anxiety has decreased significantly. There has been no acting out and mother is very pleased with her progress. Sleep is improved with decrease in cough and elevating head and they do have a hospital type bed at home for patient. Reviewed that liaison will confirm f/u appointment with [facility] and their [facility] CM will continue to follow up with them re: services after discharge. Patient is able to return to her day program for socialization when she is done with covid isolation/recovered which will also provide structure.
[2020-11-09] MEDS ORDERED: ALUMINUM/MAGNESIUM SUSP 30 ML UDC PO PRN (10:41)
--- NOTE | 2020-11-09 11:31 | Pharmacy Report ---
Pharmacy Glycemic Short Note 2 - Date of Service November 09, 2020 - Glycemic Short BSG Results (Last 24 hours): 11/08/20 11/08/20 11/08/20 11:21 12:18 17:16 Glucose 138 H POC Glucose 110 H 175 H 11/08/20 11/09/20 11/09/20 21:08 00:24 03:54 Glucose POC Glucose 184 H 194 H 154 H 11/09/20 11/09/20 06:16 08:23 Glucose 194 H POC Glucose 138 H OUTPATIENT ANTIDIABETIC REGIMEN: * None ASSESSMENT: * 30 y/o F admitted for Covid pneumonia. Patient has a HbA1c = 6.4% indicating pre-diabetes. * Patient started on IV dexamethasone 6 mg daily on admission. She received 15 u nits of basal + 13 units bolus yesterday (total 28 units of insulin). * Fasting BSG today was 138 mg/dl. Post prandial BSG yesterday was slightly elevated. * Lantus dose increased this AM. * Pre-lunch BSG elevated up to 373 mg/dl. This was not double checked and unknown if patient ate between breakfast and lunch. Novolog parameters increased further. PLAN FOR INPATIENT GLYCEMIC CONTROL: * Hold outpatient oral diabetes medications * Basal insulin * Lantus 10 units SQ BID * Bolus insulin: tightened CF/CR * NovoLog per scale ACHS or Q6hrs while NPO * Goal Range: Low 110 mg/dL - High 140 mg/dL * Correction Factor: 30 mg/dL/unit * Nutritional / Prandial insulin per carb ratio of 1 unit per 9 grams CHO consumed PLAN FOR DISCHARGE: * TBD
--- NOTE | 2020-11-09 16:09 | Hospitalist Progress Note ---
Date of Service November 09, 2020 Assessment & Plan (1) Pneumonia due to COVID-19 virus: Plan: Initial symptoms onset 11/03 (day 6). Suspect clinical course for her to get worse before she starts getting better. Aim O2 sats > 94% Started dexamethasone and remdesivir 11/08 due to mild hypoxia and raised inflammatory markers in high risk patient however back to room air again today She has COVID, and despite recent administration of IVIG on Sunday last , she is at high risk of bacterial superinfection. Continue ceftriaxone/doxycycline (switched IV -> PO as burning on administration) with mildly elevated procalcitonin. Continue for 5-7 days depending on clinical course. Rocephin will also cover possible UTI. Continue flutter valve and incentive spirometry. Added Mucinex (2) UTI (urinary tract infection): Plan: No symptoms of this. Urine culture with mixed growth. Continue antibiotics for pneumonia above but UTI essentially ruled out. (3) Hypokalemia: Plan: Resolved. BMP daily. Replace as needed. KCl 60 meq PO given yesterday. (4) Elevated blood sugar: Plan: HbA1C 6.4 (suspect low glucosylation based on serum glucose levels). Now starting on dexamethasone will consult pharmacy to help with glycemic control during inpatient stay. Mother is diabetic so she has plenty of knowledge about such. (5) Common variable immunodeficiency: Plan: Patient receives infusions of IVIG. Follows with Immunology at [place]. s/p IVIG Sunday last week. (6) Anxiety: Plan: Patient presents with worsening anxiety. Psych consult completed and appreciated. Remains on buspar. Hydroxyzine 25mg po TID PRN started by admitting MD. Remains on Lurasidone and guanfacine. Psych to adjust these. Continue melatonin for insomnia. Cont trazodone. (7) Deep vein thrombosis (DVT) of left upper extremity: Plan: history of. Patient has completed her course of anticoagulation for such. For DVT proph - COVID dosing lovenox. (8) Behavioral change: Plan: psych consult appreciated. recs appreciated. 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 Episode of diarrhea today on laxatives. Taking small breaths due to coughing. Shortness of breath at baseline. No chest pain. Review of Systems Review of Systems: All systems reviewed & are unremarkable except as noted in HPI & below Physical Exam Constitutional: well nourished; no acute distress Respiratory: normal respiratory effort Auscultation: + diminished lung sounds (bibasal) and + crackles (fine posteriorly); no wheezes Cardiovascular: RRR, no murmur, no edema Gastrointestinal (Abdomen): Percussion/Palpation: abdomen soft; abdomen nontender Skin: no rashes, warm and dry Neurologic: awake; not confused Psychiatric: A+Ox3, euthymic affect Results & Data Results & Data ([facility]) Vital Signs (Past 12 Hours) Vital Signs Temp Pulse Resp BP Pulse Ox 11/09/20 08:24 36.7 C 92 H 16 110/77 94 PG Care Time/CCT Total # of Minutes Spent Total Time Spent with Patient: Total time spent is greater than 50% in coordination of care (as documented) at patient's floor/unit and/or counseling patient: Coding Level of Care Code 30281 Subseq Hosp Care Lvl 2 Diagnoses Pneumonia due to COVID-19 virus U07.1; J12.82 UTI (urinary tract infection) N39.0 Hypokalemia E87.6 Elevated blood sugar R73.9 Common variable immunodeficiency D83.9 Anxiety F41.9 Deep vein thrombosis (DVT) of left upper extremity I82.622 Behavioral change R46.89 Kabuki syndrome Q89.8 Jocelynn-Taybi syndrome Q87.2 DVT prophylaxis Z29.9
[2020-11-09] MEDS ORDERED: INSULIN GLARGINE SOLOSTAR 100 UNITS/ML 3 ML PEN SC SCH (18:00)
[2020-11-09] MEDS: LURASIDONE HCL 40 MG TAB PO SCH (18:02)
[2020-11-09] MEDS: REMDESIVIR 100 MG in SODIUM CHLORIDE 0.9% 230 ML IV SCH (20:11)
[2020-11-09] MEDS: ACETAMINOPHEN 325 MG TAB PO PRN (20:17)
[2020-11-09] MEDS: traZODone HCL 50 MG TAB PO SCH (20:18)
[2020-11-09] MEDS: GABAPENTIN 300 MG CAP PO SCH (20:18)
[2020-11-09] MEDS: NORETHINDRONE 5 MG TAB PO SCH (20:19)
[2020-11-09] MEDS: FAMOTIDINE 20 MG TAB PO SCH (21:28)
[2020-11-09] MEDS: SODIUM CHLORIDE 0.9% 10ML FLUSH IV SCH (21:28)
[2020-11-10] MEDS: BENZONATATE 100 MG CAPSULE PO PRN ×2 (00:24→23:42)
[2020-11-10] MEDS: INSULIN ASPART 100 UNITS/ML 3 ML PEN SC SCH ×6 (00:44→20:34)
[2020-11-10 08:53] LABS: Albumin Level 2.5 gm/dl (3.4-5.0); BUN Creatinine Ratio 17.5 (10-20); C Reactive Protein 4.59 mg/dl (0-0.29); Calcium 8.5 mg/dl (8.5-10.1); Creatinine Clr Calc Pharmacy 109.3 ml/min; Est GFR (African American) 141.6 ml/min; Est GFR (Non-African American) 122.1 ml/min; Potassium 3.4 mmol/L (3.5-5.1)
[2020-11-10 08:54] LABS: Albumin Globulin Ratio 0.5 (0.9-2); Bilirubin,Total 0.2 mg/dl (0.2-1); Globulin 4.6 gm/dl (2.5-4.0); Total Protein 7.1 gm/dl (6.4-8.2)
[2020-11-10] MEDS: INSULIN GLARGINE SOLOSTAR 100 UNITS/ML 3 ML PEN SC SCH (09:00)
[2020-11-10] MEDS ORDERED: INSULIN HUMAN NPH SC SCH (09:00)
[2020-11-10] MEDS: cefTRIAXone SODIUM 1,000 MG in DEXTROSE 5% 50 ML IV SCH (09:55)
[2020-11-10] MEDS: dexAMETHasone 6 MG in SYRINGE 0 ML IV SCH (09:56)
[2020-11-10] MEDS: ENOXAPARIN INJ 40 MG/0.4 ML SYR SQ SCH ×2 (09:56→20:16)
[2020-11-10] MEDS: PANTOprazole 40 MG TAB PO SCH ×2 (09:57→20:19)
[2020-11-10] MEDS: guaiFENesin 600 MG TABCR PO SCH ×2 (09:57→20:17)
[2020-11-10] MEDS: busPIRone 5 MG TAB PO SCH ×3 (09:58→20:19)
[2020-11-10] MEDS: MELOXICAM 7.5 MG TAB PO SCH (09:58)
[2020-11-10] MEDS: DOXYCYCLINE HYCLATE 100 MG CAP PO SCH ×2 (09:58→20:17)
[2020-11-10] MEDS: ZINC SULFATE 220 MG CAPSULE PO SCH (09:59)
[2020-11-10] MEDS: guanFACINE HCL 1 MG TAB PO SCH ×2 (09:59→12:51)
[2020-11-10] MEDS: CHOLECALCIFEROL 1,000 UNITS 25 MCG TAB PO SCH (09:59)
[2020-11-10] MEDS: ACETAMINOPHEN 325 MG TAB PO PRN (10:10)
--- NOTE | 2020-11-10 12:41 | Pharmacy Report ---
Pharmacy Glycemic Short Note 2 - Date of Service November 10, 2020 - Glycemic Short BSG Results (Last 24 hours): 11/09/20 11/09/20 11/10/20 17:16 20:26 00:13 Glucose POC Glucose 356 H* 278 H 123 H 11/10/20 11/10/20 03:57 07:58 Glucose 81 POC Glucose 95 OUTPATIENT ANTIDIABETIC REGIMEN: * None ASSESSMENT: 11/10/20 * Patient's BSGs yesterday were [phone] and overnight were 123-95 mg/dL. Fasting today is 95 mg/dL. * Patient received 61 units of insulin yesterday (25 units of basal and 36 units of bolus insulin). * Will change around basal regimen today due to decreasing fasting. * Start NPH 20 units (0.4 units/kg) due to steroid hyperglycemia. Decrease Lantus to 10 units daily. Patient is prediabetic so may not require Lantus. * Tighten carbohydrate ratio as this is what is primarily affected by steroids. Background * 30 y/o F admitted for Covid pneumonia. Patient has a HbA1c = 6.4% indicating pre-diabetes. * Patient started on IV dexamethasone 6 mg daily on admission. She received 15 units of basal + 13 units bolus yesterday (total 28 units of insulin). * Fasting BSG today was 138 mg/dl. Post prandial BSG yesterday was slightly elevated. * Lantus dose increased this AM. * Pre-lunch BSG elevated up to 373 mg/dl. This was not double checked and unknown if patient ate between breakfast and lunch. Novolog parameters increased further. PLAN FOR INPATIENT GLYCEMIC CONTROL: * Basal insulin * Lantus 10 units SQ daily * NPH 20 units SQ daily * Bolus insulin: tightened CF/CR * NovoLog per scale ACHS or Q6hrs while NPO * Goal Range: Low 110 mg/dL - High 140 mg/dL * Correction Factor: 25 mg/dL/unit * Nutritional / Prandial insulin per carb ratio of 1 unit per 6 grams CHO consumed PLAN FOR DISCHARGE: * Patient's HbA1C indicates prediabetes. * Recommend working with patient and caregivers to promote lifestyle modificati ons. * May consider metformin XR 500 mg daily with dinner if medication route preferable.
--- NOTE | 2020-11-10 18:16 | Hospitalist Progress Note ---
Date of Service November 10, 2020 Assessment & Plan (1) Pneumonia due to COVID-19 virus: Plan: Initial symptoms onset 11/03 (day 6). Suspect clinical course for her to get worse before she starts getting better. Aim O2 sats > 94% Started dexamethasone and remdesivir 11/08 due to mild hypoxia and raised inflammatory markers in high risk patient however back to room air. Can likely discontinue on discharge. CRP improving. Symptoms stable. Likely can be discharged home tomorrow if she remains stable. She has COVID, and despite recent administration of IVIG on Sunday last , she is at high risk of bacterial superinfection. Continue ceftriaxone(switch to cefdinir)/doxycycline with mildly elevated procalcitonin. Continue for 7 days, can be completed at home. Repeat procalcitonin in AM. Continue flutter valve and incentive spirometry. Added Mucinex (2) UTI (urinary tract infection): Plan: No symptoms of this. Urine culture with mixed growth. Continue antibiotics for pneumonia above but UTI essentially ruled out. (3) Hypokalemia: Plan: Resolved. KCl 20 meq today. Repeat with AM labs. May need supplementations on discharge as continues to drop. (4) Elevated blood sugar: Plan: HbA1C 6.4 (suspect low glucosylation based on serum glucose levels). Appreciate pharmacy glycemic control while on dexamethasone. Will not continue dexamethasone on discharge however as currently on room air and initial trials discontinued steroids on discharge. Mother is diabetic so she has plenty of knowledge about such. (5) Common variable immunodeficiency: Plan: Patient receives infusions of IVIG. Follows with Immunology at [place]. s/p IVIG Sunday last . (6) Anxiety: Plan: Patient presents with worsening anxiety. Psych consult completed and appreciated. Remains on buspar. Hydroxyzine 25mg po TID PRN started by admitting MD. Remains on Lurasidone and guanfacine. Psych to adjust these. Continue melatonin for insomnia. Cont trazodone. (7) Deep vein thrombosis (DVT) of left upper extremity: Plan: history of. Patient has completed her course of anticoagulation for such. For DVT proph - COVID dosing lovenox. (8) Behavioral change: Plan: psych consult appreciated. recs appreciated. 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 Plan: per Ms Yeboah in infection control -- mother can leave the pt's room but should do so on limited basis if mother wishes to leave she needs to contact staff and she should be escorted out by staff (to ensure she is not going to cafeteria, etc) mother presumed to have had - or currently with - COVID must mask at all times PT/OT prior to discharge potentially tomorrow. Admission and Anticipated Discharge Date Admission Date: November 08, 2020 Anticipated date of discharge: 11/11/20 Subjective No acute events overnight. Continued dry cough especially on deep inspiration. Mother requests physical therapy prior to any discharge. Ambulates usually without any aids. Review of Systems Review of Systems: All systems reviewed & are unremarkable except as noted in HPI & below Physical Exam Constitutional: well nourished; no acute distress Respiratory: normal respiratory effort Auscultation: + diminished lung sounds (bibasal, improving) and + crackles (fine posteriorly); no wheezes Cardiovascular: RRR, no murmur, no edema Gastrointestinal (Abdomen): Percussion/Palpation: abdomen soft; abdomen nontender Skin: no rashes, warm and dry Neurologic: awake; not confused Psychiatric: A+Ox3, euthymic affect Results & Data Results & Data ([facility]) Vital Signs (Past 12 Hours) Vital Signs Temp Pulse Resp BP Pulse Ox 11/10/20 17:09 36.8 C 66 16 147/92 H 95 11/10/20 08:23 36.3 C L 61 16 131/86 95 PG Care Time/CCT Total # of Minutes Spent Total Time Spent with Patient: Total time spent is greater than 50% in coordination of care (as documented) at patient's floor/unit and/or counseling patient: Coding Level of Care Code 03598 Subseq Hosp Care Lvl 2 Diagnoses Pneumonia due to COVID-19 virus U07.1; J12.82 UTI (urinary tract infection) N39.0 Hypokalemia E87.6 Elevated blood sugar R73.9 Common variable immunodeficiency D83.9 Anxiety F41.9 Deep vein thrombosis (DVT) of left upper extremity I82.622 Behavioral change R46.89 Kabuki syndrome Q89.8 Jocelynn-Taybi syndrome Q87.2 DVT prophylaxis Z29.9
[2020-11-10] MEDS: LURASIDONE HCL 40 MG TAB PO SCH (18:31)
[2020-11-10] MEDS: REMDESIVIR 100 MG in SODIUM CHLORIDE 0.9% 230 ML IV SCH (20:09)
[2020-11-10] MEDS: traZODone HCL 50 MG TAB PO SCH (20:16)
[2020-11-10] MEDS: NORETHINDRONE 5 MG TAB PO SCH (20:16)
[2020-11-10] MEDS: FAMOTIDINE 20 MG TAB PO SCH (20:17)
[2020-11-10] MEDS: GABAPENTIN 300 MG CAP PO SCH (20:18)
[2020-11-10] MEDS ORDERED: POTASSIUM CHLORIDE CRTAB 20 MEQ TABCR PO ONE (21:00)
[2020-11-10] MEDS: SODIUM CHLORIDE 0.9% 10ML FLUSH IV SCH (21:39)
[2020-11-11] MEDS: BENZONATATE 100 MG CAPSULE PO PRN ×3 (02:38→11:51)
[2020-11-11] MEDS ORDERED: COUGH DROP (SUGAR FREE) LOZ 24 LOZ/1 BOX BUCCAL STA (04:45)
[2020-11-11 08:27] LABS: Hematocrit (blood only) 36.8 % (37-47); Hemoglobin 12.3 g/dL (12.0-16.0); Immature Granulocytes # (auto) 0.05 K/uL (0.00-0.02); Immature Granulocytes % (auto) 0.7 %; Lymphocytes # (auto) 1.65 K/uL (1.2-3.4); Lymphocytes % (auto) 23.7 %; Mean Corpuscular Hemoglobin 28.1 pg (25-34); Mean Corpuscular Hgb Conc 33.4 g/dL (32-36); Mean Platelet Volume 11.8 fL (7.4-10.4); Monocytes % (auto) 10.1 %; Neutrophils # (auto) 4.56 K/uL (1.4-6.5); Neutrophils % (auto) 65.5 %; Platelet Count 304 K/uL (130-400); RDW Coefficient of Variation 15.6 % (11.5-14.5); RDW Standard Deviation 48.1 fL (36.4-46.3); Red Blood Count 4.38 M/uL (4.2-5.4); White Blood Count 6.96 K/uL (4.8-10.8)
[2020-11-11 08:48] LABS: Albumin Level 2.5 gm/dl (3.4-5.0); BUN Creatinine Ratio 14.2 (10-20); C Reactive Protein 2.34 mg/dl (0-0.29); Calcium 8.7 mg/dl (8.5-10.1); Creatinine Clr Calc Pharmacy 97.7 ml/min; Est GFR (African American) 136.4 ml/min; Est GFR (Non-African American) 117.7 ml/min; Potassium 3.3 mmol/L (3.5-5.1)
[2020-11-11 08:51] LABS: Albumin Globulin Ratio 0.5 (0.9-2); Bilirubin,Total 0.2 mg/dl (0.2-1); Globulin 4.8 gm/dl (2.5-4.0); Total Protein 7.3 gm/dl (6.4-8.2)
[2020-11-11] MEDS: INSULIN ASPART 100 UNITS/ML 3 ML PEN SC SCH ×2 (09:00→11:56)
[2020-11-11] MEDS ORDERED: INSULIN HUMAN NPH SC SCH (09:00)
[2020-11-11] MEDS ORDERED: CEFDINIR 300 MG CAP PO SCH (09:00)
[2020-11-11 09:01] LABS: D Dimer 1690 ug/L FEU (0-500)
[2020-11-11] MEDS: dexAMETHasone 6 MG in SYRINGE 0 ML IV SCH (09:10)
[2020-11-11] MEDS: MELOXICAM 7.5 MG TAB PO SCH (09:12)
[2020-11-11] MEDS: busPIRone 5 MG TAB PO SCH (09:12)
[2020-11-11] MEDS: guanFACINE HCL 1 MG TAB PO SCH (09:12)
[2020-11-11] MEDS: PANTOprazole 40 MG TAB PO SCH (09:12)
[2020-11-11] MEDS: DOXYCYCLINE HYCLATE 100 MG CAP PO SCH (09:12)
[2020-11-11] MEDS: ENOXAPARIN INJ 40 MG/0.4 ML SYR SQ SCH (09:12)
[2020-11-11] MEDS: ZINC SULFATE 220 MG CAPSULE PO SCH (09:14)
[2020-11-11] MEDS: CHOLECALCIFEROL 1,000 UNITS 25 MCG TAB PO SCH (09:14)
[2020-11-11] MEDS: guaiFENesin 600 MG TABCR PO SCH (09:22)
[2020-11-11] MEDS: INSULIN GLARGINE SOLOSTAR 100 UNITS/ML 3 ML PEN SC SCH (09:39)
[2020-11-11] MEDS ORDERED: POTASSIUM CHLORIDE CRTAB 20 MEQ TABCR PO STA (10:41)
--- NOTE | 2020-11-11 11:31 | Discharge Summary ---
Date of Service November 11, 2020 Admission HPI Per Admitting Provider Kavita Alicea is a 30yo female with history of Common variable immunodeficiency, Kabuki Syndrome, Jocelynn-Taybi B syndrome. She was seen in the ER yesterday with complaint of cough. She was diagnosed with Covid-19 infection. She maintained her saturations and had no acute inpatient needs therefore she was discharged home to the care of her parents. She presents today with increased anxiety. She denies SI/HI, audio or visual hallucinations. Patient initially wanted to be discharged home, now wants to stay in the hospital. Per history, patient has been aggressive at times and family is having a difficult time managing her. Therefore, family is requesting admission. States that they do not feel safe with her at home right now. Patient is very hard of hearing. She denies chest pain. ER Course: Ativan Discharge Data Allergies Allergy/AdvReac Type Severity Reaction Status Date / Time amoxicillin Allergy Unknown Rash Verified 03/03/20 14:25 Consultations 11/06/20 21:54 ED Decision to Admit Stat 11/07/20 00:01 Consult Psychiatry Routine Hospital Course (1) Pneumonia due to COVID-19 virus: Initial symptoms onset 11/03 (day 6). Suspect clinical course for her to get worse before she starts getting better. Aim O2 sats > 94% Started dexamethasone and remdesivir 11/08 due to mild hypoxia and raised inflammatory markers in high risk patient however back to room air. Can likely discontinue on discharge. CRP improving. Symptoms stable. Likely can be discharged home tomorrow if she remains stable. She has COVID, and despite recent administration of IVIG on Sunday last week, she is at high risk of bacterial superinfection. Continue ceftriaxone(switch to cefdinir)/doxycycline with mildly elevated procalcitonin. Continue for 7 days, can be completed at home. Repeat procalcitonin in AM. Continue flutter valve and incentive spirometry. Added Mucinex (2) UTI (urinary tract infection): No symptoms of this. Urine culture with mixed growth. Continue antibiotics for pneumonia above but UTI essentially ruled out. (3) Hypokalemia: Resolved. KCl 20 meq today. Repeat with AM labs. May need supplementations on discharge as continues to drop. (4) Elevated blood sugar: HbA1C 6.4 (suspect low glucosylation based on serum glucose levels). Appreciate pharmacy glycemic control while on dexamethasone. Will not continue dexamethasone on discharge however as currently on room air and initial trials discontinued steroids on discharge. Mother is diabetic so she has plenty of knowledge about such. (5) Common variable immunodeficiency: Patient receives infusions of IVIG. Follows with Immunology at [place]. s/p IVIG Sunday last week. (6) Anxiety: Patient presents with worsening anxiety. Psych consult completed and appreciated. Remains on buspar. Hydroxyzine 25mg po TID PRN started by admitting MD. Remains on Lurasidone and guanfacine. Psych to adjust these. Continue melatonin for insomnia. Cont trazodone. (7) Deep vein thrombosis (DVT) of left upper extremity: history of. Patient has completed her course of anticoagulation for such. For DVT proph - COVID dosing lovenox. (8) Behavioral change: psych consult appreciated. recs appreciated. 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 per Ms Yeboah in infection control -- mother can leave the pt's room but should do so on limited basis if mother wishes to leave she needs to contact staff and she should be escorted out by staff (to ensure she is not going to cafeteria, etc) mother presumed to have had - or currently with - COVID must mask at all times PT/OT prior to discharge potentially tomorrow. Discharge Plan Discharge Items Patient Disposition: Home - Self-Care Reason For Visit: ANXIETY Discharge Diagnosis: COVID-19 pneumonia Activity: Resume your previous activity Non-emergency contact: Primary Care Provider Call non-emergency contact if: you have any medication questions and your symptoms worsen Follow-up/Referrals: Belén Bains CRNP [Primary Care Provider] - Diet: Carb Consistent or DM2 Addtl Attending Provider Instructions: You were admitted to [facility] from November 06 - 2020 due to cough and increased anxiety. You were treated for COVID-19 pneumonia with dexamethasone and remdesivir but given improving inflammatory markers and maintaining oxygen saturations on room air we do not feel you require ongoing treatment for this. You were also treated for possible secondary bacterial infection with antibiotics during inpatient stay and will continue on 2 days of additional antibiotics on discharge. Due to history of blood clots and elevated d-dimer on discharge recommend ongoing venous thromboembolism prophylaxis with Xarelto for a further 2 weeks on discharge. Regarding your anxiety you were reviewed by psychiatry and recommended restartin g your on Buspar and increase your dose of guanfacine to 2mg in the morning and 1mg at 2pm. You were also noted to have low potassium likely due to diarrhea with COVID-19 and antibiotic use. Recommend supplementation as prescribed below while diarrhea continues. You were also noted to have elevated glucose levels during your admission. HbA1C 6.4 in pre-diabetic range but given you glucose levels suspect this is full diabetes (officially can be diagnosed outside of illness with fasting glucose test) and recommend starting a low dose of metformin for this and following up with your primary care provider for ongoing management. Kind regards, Dr Noah Correa Pending Studies at Discharge: No Stand-Alone Forms: [facility], Sm[facility] Cessation Medications and DC Order Prescriptions: New doxycycline hyclate 100 mg Capsule 100 mg PO BID 2 Days Qty: 4 RF: 0 cefdinir 300 mg Capsule 300 mg PO BID 2 Days Qty: 4 RF: 0 guanfacine 1 mg Tablet 1 mg PO DAILY@1400 Qty: 30 RF: 0 buspirone 10 mg tablet 10 mg PO TID Qty: 90 RF: 0 metformin 500 mg tablet extended release 24hr 500 mg PO DAILY Qty: 30 RF: 0 potassium chloride 20 mEq tablet extended release 20 meq PO BID Qty: 20 RF: 0 Xarelto 10 mg tablet 10 mg PO DAILY 14 Days Qty: 14 RF: 0 Continued norethindrone acetate 5 mg tablet 10 mg PO HS RF: 0 gabapentin 100 mg capsule 300 mg PO HS RF: 0 fluticasone propionate 50 mcg/actuation spray,suspension 2 spray Intranasal HS PRN (Reason: Allergy Symptoms) RF: 0 Ivig 0 mg IV MONTHLY RF: 0 guanfacine 1 mg tablet 2 mg PO QAM RF: 0 ascorbic acid (vitamin C) [Vitamin C] 1,000 mg Tablet 1 g PO QAM RF: 0 famotidine [Pepcid] 20 mg tablet 20 mg PO HS Qty: 30 RF: 0 pantoprazole 40 mg tablet,delayed release (DR/EC) 40 mg PO BID Qty: 0 RF: 0 trazodone 50 mg Tablet 50 mg PO HS RF: 0 meloxicam 15 mg Tablet 15 mg PO DAILY RF: 0 lorazepam [Ativan] 0.5 mg Tablet See Rx Instructions .ROUTE .COMPLEX PRN (Reason: Anxiety) RF: 0 Latuda 40 mg Tablet 40 mg PO DAILY RF: 0 Discharge Orders: Discharge Order (Routine); Ordered 11/11/20 Ordered By: Noah Davila/Other Patient Handouts: A1C, 2019-nCoV Admission Data Admit Date/Time: 11/08/20 14:42 Attending Provider: Noah Correa Admit Provider: Ayanna Shipley Primary Care Provider: Belén Bains Other Providers: Ayanna Shipley ; Fabiana Prescott ; Rena Brady ; Conor Burton Other Interventions: PSY Interdisciplinary Discharge Planning Last Done: 11/09/20 14:30 Coding Diagnoses Pneumonia due to COVID-19 virus U07.1; J12.82 UTI (urinary tract infection) N39.0 Hypokalemia E87.6 Elevated blood sugar R73.9 Common variable immunodeficiency D83.9 Anxiety F41.9 Deep vein thrombosis (DVT) of left upper extremity I82.622 Behavioral change R46.89 Kabuki syndrome Q89.8 Jocelynn-Taybi syndrome Q87.2 DVT prophylaxis Z29.9
[2020-11-11] MEDS: ACETAMINOPHEN 325 MG TAB PO PRN (11:51)
== END 2020-11-11 12:42 | disposition home or self-care (01) | DRG 177 ==
LOC: 2S 18:09 → ED 18:09 → SUATTDRO 22:24 → 2S 23:24 → 3E 11-07 12:20 → 3N 11-07 22:03

== ENCOUNTER 2020-11-18 07:37 | Observation (INO) ==
--- NOTE | 2020-11-18 08:08 | Emergency Department Note ---
History of Present Illness General Chief complaint: Cough Stated complaint: COUGH-DR MASTERS CHEST XRAY Time Seen by Provider: 11/18/20 07:51 Source: patient and family (Mother who is at the bedside) Mode of arrival: ambulatory Limitations: no limitations History of Present Illness This patient is a 30-year-old immunocompromised woman who comes in after having a cough. She was recently hospitalized with Covid and was discharged about a we ek ago. She finished antibiotics 2 days after hospitalization. She has had no fever she has been keeping up with her fluids but she continues have a deep cough. She has chest pain with coughing only. No sore throat. No trauma or injury. Mother called her doctor yesterday as she was still coughing and the documented she been to the hospital for x-ray and would work. Home Medications Medication Instructions Recorded Confirmed Type fluticasone propionate 50 2 spray INTRANASAL BID PRN 05/10/18 11/18/20 History mcg/actuation nasal spray,suspension gabapentin 100 mg capsule 300 mg PO HS 05/10/18 11/18/20 History norethindrone acetate 5 mg tablet 10 mg PO HS 05/10/18 11/18/20 History Ivig 0 mg IV MONTHLY 04/18/19 11/18/20 History ascorbic acid (vitamin C) 1,000 mg 1 g PO QAM 06/06/19 11/18/20 History tablet (Vitamin C) famotidine 20 mg tablet (Pepcid) 20 mg PO HS #30 tab 06/07/19 11/18/20 Rx pantoprazole 40 mg tablet,delayed 40 mg PO BID #0 tab 06/07/19 11/18/20 Rx release guanfacine 1 mg tablet 2 mg PO QAM 03/03/20 11/18/20 History lorazepam 0.5 mg tablet (Ativan) See Rx Instructions .ROUTE 11/07/20 11/18/20 History .COMPLEX PRN lurasidone 40 mg tablet (Latuda) 40 mg PO PM 11/07/20 11/18/20 History meloxicam 15 mg tablet 15 mg PO QAM 11/07/20 11/18/20 History trazodone 50 mg tablet 50 mg PO HS 11/07/20 11/18/20 History buspirone 10 mg tablet 10 mg PO TID #90 tab 11/11/20 11/18/20 Rx guanfacine 1 mg tablet 1 mg PO DAILY@1400 #30 tab 11/11/20 11/18/20 Rx potassium chloride 20 mEq 20 meq PO BID #20 tab 11/11/20 11/18/20 Rx tablet,extended release acetaminophen 500 mg tablet 1,000 mg PO Q6H PRN 11/18/20 11/18/20 History (Tylenol Extra Strength) rivaroxaban 10 mg tablet (Xarelto) 10 mg PO QAM 11/18/20 11/18/20 History Allergies Allergy/AdvReac Type Severity Reaction Status Date / Time amoxicillin Allergy Unknown Rash Verified 11/18/20 08:06 Past Med/Surg History Medical History Abdominal pain Altered mental status Deep vein thrombosis (DVT) of left upper extremity (01/2019) Elevated troponin H. pylori infection Headache Kabuki syndrome Lower GI bleeding Lower GI bleeding Medication reaction Pneumonia Jocelynn-Taybi syndrome URI (upper respiratory infection) VSD (ventricular septal defect) Surgical History H/O myringotomy History of ankle surgery History of partial hysterectomy History of repair of congenital cleft palate S/P VSD closure Status post Katerin fundoplication Family History Other Adopted Social History Smoking Status: Never smoker Second Hand Exposure: No; Hx Alcohol Use: No Hx Substance Use: No Preferred Language: Telugu Communication Ability: Impaired Communication Ability Comment: Intellectual disability Prisoner Classification Interviewer Required: No Beliefs That Will Affect Care: None Current Living Situation: Parent and Family Current Living Situation Comment: Lives with parents Feels Safe at Home: Yes Assistive Devices: None Review of Systems A total of 10 systems reviewed and were otherwise negative Physical Exam Vital Signs Vital Signs - 24 hr 11/18/20 07:41 11/18/20 08:43 11/18/20 09:00 Temperature 36.7 C Temperature Source Oral Pulse Rate 140 H 133 H 142 H Pulse Rate [Left Finger] 96 H Pulse Rate from SpO2 Sensor 132 H 139 H Pulse Rhythm Regular Pulse Rhythm [Left Finger] Regular Pulse Strength Normal Pulse Strength [Left Finger] Normal Respiratory Rate 24 34 H 22 Respiratory Effort / Characteristics Non-Labored Spontaneous Respiratory Depth Normal Respiratory Pattern Regular Blood Pressure 157/95 H 138/95 131/78 Blood Pressure [Right Arm] 138/95 Blood Pressure Mean 115 109 95 Blood Pressure Mean [Right Arm] 109 Blood Pressure Position Sitting Blood Pressure Position [Right Arm] Sitting Pulse Oximetry 96 96 97 Oxygen Delivery Method Room Air Room Air Sepsis Recent Fever Within 48 Hours No Sepsis New/Unexplained Change in Mental Status No Sepsis Action Taken by Nursing No Action Required 11/18/20 09:30 11/18/20 10:00 11/18/20 10:32 Temperature Temperature Source Pulse Rate 128 H 132 H 147 H Pulse Rate [Left Finger] Pulse Rate from SpO2 Sensor 127 H 130 H Pulse Rhythm Pulse Rhythm [Left Finger] Pulse Strength Pulse Strength [Left Finger] Respiratory Rate 27 H 29 H 24 Respiratory Effort / Characteristics Respiratory Depth Respiratory Pattern Blood Pressure 125/85 148/95 H Blood Pressure [Right Arm] Blood Pressure Mean 98 112 Blood Pressure Mean [Right Arm] Blood Pressure Position Blood Pressure Position [Right Arm] Pulse Oximetry 96 99 Oxygen Delivery Method Sepsis Recent Fever Within 48 Hours Sepsis New/Unexplained Change in Mental Status Sepsis Action Taken by Nursing 11/18/20 11:01 Temperature Temperature Source Pulse Rate 145 H Pulse Rate [Left Finger] Pulse Rate from SpO2 Sensor 146 H Pulse Rhythm Pulse Rhythm [Left Finger] Pulse Strength Pulse Strength [Left Finger] Respiratory Rate 26 H Respiratory Effort / Characteristics Respiratory Depth Respiratory Pattern Blood Pressure 144/98 H Blood Pressure [Right Arm] Blood Pressure Mean 113 Blood Pressure Mean [Right Arm] Blood Pressure Position Blood Pressure Position [Right Arm] Pulse Oximetry 94 Oxygen Delivery Method Sepsis Recent Fever Within 48 Hours Sepsis New/Unexplained Change in Mental Status Sepsis Action Taken by Nursing General: Well developed well nourished young female who appears in no acute distress, breathing comfortably on room air. Normal speech HEENT: Normal cephalic atraumatic. Pupils are equal round and reactive to light. Extraocular movements are intact. Oropharynx is pink with moist mucous membranes. No swelling of the mouth lips or tongue. Posterior surgical changes. Neck: Supple with a midline trachea. No meningeal signs or stiffness, no JVD or bruits. No Stridor. Chest: Clear to auscultation bilaterally. No wheezes or rhonchi. No increased work of breathing. She has a hacking cough. Heart: Tachycardic but regular rate and rhythm without murmurs or gallops. Abdomen: Soft nontender, nondistended without rebound guarding or rigidity. Extremities: No cyanosis clubbing or edema. No calf tenderness or assymetry Spine/Back. Non tender to palpation. No CVA tenderness Skin: Good turgor without rashes. Neurologic exam: Cranial nerves two through 12 are intact. Motor and sensation are intact and symmetrical throughout. Course Administered Medications Benzonatate (Benzonatate 100 Mg Capsule) 100 mg PO TID JOE Stop: 12/18/20 14:47 Last Admin: 11/18/20 16:04 Dose: 100 mg Documented by: [id number] Buspirone HCl (Buspirone 5 Mg Tab) 10 mg PO TID JOE Stop: 12/18/20 14:47 Last Admin: 11/18/20 16:05 Dose: 10 mg Documented by: [id number] Guanfacine HCl (Guanfacine Hcl 1 Mg Tab) 1 mg PO DAILY@1400 JOE Stop: 12/18/20 14:47 Last Admin: 11/18/20 16:06 Dose: 1 mg Documented by: [id number] Sodium Chloride (Nss 1000ml) 1,000 mls @ 85 mls/hr IV .[id number] JOE Stop: 11/19/20 02:33 Last Admin: 11/18/20 15:52 Dose: 85 mls/hr Documented by: [id number] Lurasidone HCl (Lurasidone Hcl 40 Mg Tab) 40 mg PO DAILY@1700 [facility] Stop: 12/18/20 16:59 Last Admin: 11/18/20 16:05 Dose: 40 mg Documented by: [id number] Metoprolol Tartrate (Metoprolol Tartrate 1 Mg/Ml Vial) 5 mg IV Q4 PRN PRN Reason: sbp> 185, dbp >95, HR >120 Stop: 12/18/20 15:32 Last Admin: 11/18/20 15:46 Dose: 5 mg Documented by: [id number] Discontinued Medications Sodium Chloride (Nss) 500 mls @ 999 mls/hr IV .[id number] Stop: 11/18/20 10:00 Last Infusion: 11/18/20 11:31 Dose: 0 mls/hr Documented by: [id number] Admin: 11/18/20 10:48 Dose: 999 mls/hr Documented by: [id number] Insulin Human Regular (Novolin-R Insulin Per Unit Charge) 5 units SC NOW STA Stop: 11/18/20 09:32 Last Admin: 11/18/20 10:49 Dose: 5 units Documented by: [id number] Cosigned by: [id number] Ioversol (Optiray 320 125ml) 118 ml IV ONCE ONE Stop: 11/18/20 10:33 Last Admin: 11/18/20 10:33 Dose: 118 ml Documented by: [id number] Medical Decision Making Differential Diagnosis Pneumonia, Covid complication, PE, CHF, pneumothorax, electrolyte or metabolic abnormality, arrhythmia, acute coronary syndrome, anemia Medical Records Attestation: I reviewed the patient's medical records. Home Medications Current Medication List: was personally reviewed by me Laboratory Data Attestation: I reviewed the patient's lab results. Result diagrams: 11/18/20 08:23 11/18/20 12:57 Lab Results 11/18/20 11/18/20 11/18/20 Range/Units 08:23 08:23 08:23 WBC 7.41 (4.8-10.8) K/uL RBC 4.29 (4.2-5.4) M/uL Hgb 12.1 (12.0-16.0) g/dL Hct 37.0 (37-47) % MCV 86.2 (80-100) fL MCH 28.2 (25-34) pg MCHC 32.7 (32-36) g/dL RDW Std Deviation 49.9 H (36.4-46.3) fL RDW Coeff of Ally 15.7 H (11.5-14.5) % Plt Count 408 H (130-400) K/uL MPV 11.2 H (7.4-10.4) fL Immature Gran % (Auto) 0.3 % Neut % (Auto) 60.7 % Lymph % (Auto) 22.5 % Bethel % (Auto) 16.1 % Eos % (Auto) 0.4 % Baso % (Auto) 0.0 % Neut # (Auto) 4.50 (1.4-6.5) K/uL Lymph # (Auto) 1.67 (1.2-3.4) K/uL [place] # (Auto) 1.19 H (0.11-0.59) K/uL Eos # (Auto) 0.03 (0-0.5) K/uL Baso # (Auto) 0.00 (0-0.2) K/uL Immature Gran # (Auto) 0.02 (0.00-0.02) K/uL PT 14.6 H (9.0-12.0) Seconds INR 1.5 H (0.9-1.1) APTT < 20.0 L (21.0-31.0) Seconds PTT Ratio 0.8 D-Dimer 1090 H* (0-500) ug/L FEU Sodium 127 L (136-145) mmol/L Potassium 4.5 (3.5-5.1) mmol/L Chloride 93 L (98-107) mmol/L Carbon Dioxide 25 (21-32) mmol/L Anion Gap 10.0 (3-11) BUN 9 (7-18) mg/dl Creatinine 0.96 (0.6-1.2) mg/dl Est Cr Clr Drug Dosing 32.0 ml/min Est GFR ( Amer) 91.3 ml/min Est GFR (Non-Af Amer) 78.8 ml/min BUN/Creatinine Ratio 9.1 L (10-20) Glucose 464 H* (70-99) mg/dl Lactate (0.4-2.0) mmol/L Calcium 8.3 L (8.5-10.1) mg/dl Magnesium 2.4 (1.8-2.4) mg/dl Total Bilirubin 0.5 (0.2-1) mg/dl AST 20 (15-37) U/L ALT 48 (12-78) U/L Alkaline Phosphatase 55 (45-117) U/L Troponin I < 0.015 (0-0.045) ng/ml Total Protein 7.2 (6.4-8.2) gm/dl Albumin 2.8 L (3.4-5.0) gm/dl Globulin 4.4 H (2.5-4.0) gm/dl Albumin/Globulin Ratio 0.6 L (0.9-2) Beta-Hydroxybutyric Acd 1.03 (0.2-2.81) mg/dl Procalcitonin (0-0.5) ng/ml Urine Color Urine Appearance (Clear) Urine pH (4.5-7.5) Ur Specific Glidden (1.000-1.030) Urine Protein (Negative) Urine Glucose (UA) (Negative) Urine Ketones (Negative) Urine Blood (Negative) Urine Nitrite (Negative) Urine Bilirubin (Negative) Urine Urobilinogen (Negative) Ur Leukocyte Esterase (Negative) Urine RBC (0-4) /hpf Urine WBC (0-5) /hpf Ur Epithelial Cells (0-5) /lpf Ur Renal Epithelial Cell (0-5) /lpf Urine Bacteria (Negative) Adenovirus (PCR) (NotDetected) B. pertussis DNA (PCR) (NotDetected) B.parapertussis DNA PCR (NotDetected) C. pneumoniae DNA (PCR) (NotDetected) Coronavirus OC43 (PCR) (NotDetected) Coronavirus HKU1 (PCR) (NotDetected) Coronavirus 229E (PCR) (NotDetected) COVID-19 Eval Order SARS-CoV-2 (PCR) (NotDetected) Coronavirus NL63 (PCR) (NotDetected) Human Metapneumovir PCR (NotDetected) Influenza Type A (PCR) (NotDetected) Influenza Type B (PCR) (NotDetected) M. pneumoniae (PCR) (NotDetected) Parainfluenza 1 (PCR) (NotDetected) Parainfluenza 2 (PCR) (NotDetected) Parainfluenza 3 (PCR) (NotDetected) Parainfluenza 4 (PCR) (NotDetected) RSV (PCR) (NotDetected) Entero/Rhino (PCR) (NotDetected) 11/18/20 11/18/20 11/18/20 Range/Units 08:23 08:28 08:28 WBC (4.8-10.8) K/uL RBC (4.2-5.4) M/uL Hgb (12.0-16.0) g/dL Hct (37-47) % MCV (80-100) fL MCH (25-34) pg MCHC (32-36) g/dL RDW Std Deviation (36.4-46.3) fL RDW Coeff of Ally (11.5-14.5) % Plt Count (130-400) K/uL MPV (7.4-10.4) fL Immature Gran % (Auto) % Neut % (Auto) % Lymph % (Auto) % [place]hel % (Auto) % Eos % (Auto) % Baso % (Auto) % Neut # (Auto) (1.4-6.5) K/uL Lymph # (Auto) (1.2-3.4) K/uL [place]hel # (Auto) (0.11-0.59) K/uL Eos # (Auto) (0-0.5) K/uL Baso # (Auto) (0-0.2) K/uL Immature Gran # (Auto) (0.00-0.02) K/uL PT (9.0-12.0) Seconds INR (0.9-1.1) APTT (21.0-31.0) Seconds PTT Ratio D-Dimer (0-500) ug/L FEU Sodium (136-145) mmol/L Potassium (3.5-5.1) mmol/L Chloride (98-107) mmol/L Carbon Dioxide (21-32) mmol/L Anion Gap (3-11) BUN (7-18) mg/dl Creatinine (0.6-1.2) mg/dl Est Cr Clr Drug Dosing ml/min Est GFR ( Amer) ml/min Est GFR (Non-Af Amer) ml/min BUN/Creatinine Ratio (10-20) Glucose (70-99) mg/dl Lactate (0.4-2.0) mmol/L Calcium (8.5-10.1) mg/dl Magnesium (1.8-2.4) mg/dl Total Bilirubin (0.2-1) mg/dl AST (15-37) U/L ALT (12-78) U/L Alkaline Phosphatase (45-117) U/L Troponin I (0-0.045) ng/ml Total Protein (6.4-8.2) gm/dl Albumin (3.4-5.0) gm/dl Globulin (2.5-4.0) gm/dl Albumin/Globulin Ratio (0.9-2) Beta-Hydroxybutyric Acd (0.2-2.81) mg/dl Procalcitonin 0.16 (0-0.5) ng/ml Urine Color Urine Appearance (Clear) Urine pH (4.5-7.5) Ur Specific Glidden (1.000-1.030) Urine Protein (Negative) Urine Glucose (UA) (Negative) Urine Ketones (Negative) Urine Blood (Negative) Urine Nitrite (Negative) Urine Bilirubin (Negative) Urine Urobilinogen (Negative) Ur Leukocyte Esterase (Negative) Urine RBC (0-4) /hpf Urine WBC (0-5) /hpf Ur Epithelial Cells (0-5) /lpf Ur Renal Epithelial Cell (0-5) /lpf Urine Bacteria (Negative) Adenovirus (PCR) Not Detected (NotDetected) B. pertussis DNA (PCR) Not Detected (NotDetected) B.parapertussis DNA PCR Not Detected (NotDetected) C. pneumoniae DNA (PCR) Not Detected (NotDetected) Coronavirus OC43 (PCR) Not Detected (NotDetected) Coronavirus HKU1 (PCR) Not Detected (NotDetected) Coronavirus 229E (PCR) Not Detected (NotDetected) COVID-19 Eval Order [facility] at [facility] SARS-CoV-2 (PCR) DETECTED A* (NotDetected) Coronavirus NL63 (PCR) Not Detected (NotDetected) Human Metapneumovir PCR Not Detected (NotDetected) Influenza Type A (PCR) Not Detected (NotDetected) Influenza Type B (PCR) Not Detected (NotDetected) M. pneumoniae (PCR) Not Detected (NotDetected) Parainfluenza 1 (PCR) Not Detected (NotDetected) Parainfluenza 2 (PCR) Not Detected (NotDetected) Parainfluenza 3 (PCR) Not Detected (NotDetected) Parainfluenza 4 (PCR) Not Detected (NotDetected) RSV (PCR) Not Detected (NotDetected) Entero/Rhino (PCR) Not Detected (NotDetected) 11/18/20 11/18/20 Range/Units 08:32 08:40 WBC (4.8-10.8) K/uL RBC (4.2-5.4) M/uL Hgb (12.0-16.0) g/dL Hct (37-47) % MCV (80-100) fL MCH (25-34) pg MCHC (32-36) g/dL RDW Std Deviation (36.4-46.3) fL RDW Coeff of Ally (11.5-14.5) % Plt Count (130-400) K/uL MPV (7.4-10.4) fL Immature Gran % (Auto) % Neut % (Auto) % Lymph % (Auto) % [place] % (Auto) % Eos % (Auto) % Baso % (Auto) % Neut # (Auto) (1.4-6.5) K/uL Lymph # (Auto) (1.2-3.4) K/uL [place] # (Auto) (0.11-0.59) K/uL Eos # (Auto) (0-0.5) K/uL Baso # (Auto) (0-0.2) K/uL Immature Gran # (Auto) (0.00-0.02) K/uL PT (9.0-12.0) Seconds INR (0.9-1.1) APTT (21.0-31.0) Seconds PTT Ratio D-Dimer (0-500) ug/L FEU Sodium (136-145) mmol/L Potassium (3.5-5.1) mmol/L Chloride (98-107) mmol/L Carbon Dioxide (21-32) mmol/L Anion Gap (3-11) BUN (7-18) mg/dl Creatinine (0.6-1.2) mg/dl Est Cr Clr Drug Dosing ml/min Est GFR ( Amer) ml/min Est GFR (Non-Af Amer) ml/min BUN/Creatinine Ratio (10-20) Glucose (70-99) mg/dl Lactate 3.5 H* (0.4-2.0) mmol/L Calcium (8.5-10.1) mg/dl Magnesium (1.8-2.4) mg/dl Total Bilirubin (0.2-1) mg/dl AST (15-37) U/L ALT (12-78) U/L Alkaline Phosphatase (45-117) U/L Troponin I (0-0.045) ng/ml Total Protein (6.4-8.2) gm/dl Albumin (3.4-5.0) gm/dl Globulin (2.5-4.0) gm/dl Albumin/Globulin Ratio (0.9-2) Beta-Hydroxybutyric Acd (0.2-2.81) mg/dl Procalcitonin (0-0.5) ng/ml Urine Color Yellow Urine Appearance Clear (Clear) Urine pH 6.5 (4.5-7.5) Ur Specific Glidden 1.011 (1.000-1.030) Urine Protein Negative (Negative) Urine Glucose (UA) 3+ H (Negative) Urine Ketones Negative (Negative) Urine Blood Negative (Negative) Urine Nitrite Negative (Negative) Urine Bilirubin Negative (Negative) Urine Urobilinogen Negative (Negative) Ur Leukocyte Esterase Trace H (Negative) Urine RBC 5-10 H (0-4) /hpf Urine WBC 5-10 H (0-5) /hpf Ur Epithelial Cells 10-20 H (0-5) /lpf Ur Renal Epithelial Cell 0-5 (0-5) /lpf Urine Bacteria 1+ H (Negative) Adenovirus (PCR) (NotDetected) B. pertussis DNA (PCR) (NotDetected) B.parapertussis DNA PCR (NotDetected) C. pneumoniae DNA (PCR) (NotDetected) Coronavirus OC43 (PCR) (NotDetected) Coronavirus HKU1 (PCR) (NotDetected) Coronavirus 229E (PCR) (NotDetected) COVID-19 Eval Order SARS-CoV-2 (PCR) (NotDetected) Coronavirus NL63 (PCR) (NotDetected) Human Metapneumovir PCR (NotDetected) Influenza Type A (PCR) (NotDetected) Influenza Type B (PCR) (NotDetected) M. pneumoniae (PCR) (NotDetected) Parainfluenza 1 (PCR) (NotDetected) Parainfluenza 2 (PCR) (NotDetected) Parainfluenza 3 (PCR) (NotDetected) Parainfluenza 4 (PCR) (NotDetected) RSV (PCR) (NotDetected) Entero/Rhino (PCR) (NotDetected) Imaging Data Attestation: I personally reviewed and interpreted this imaging study as follows: My Impression: Chest x-raythere are bilateral infiltrates consistent with recent Covid. Radiologist's Impression: Chest X-Ray 11/18/20 08:03 XR chest 1V portable CLINICAL HISTORY: Sepsis. Cough. COMPARISON STUDY: Chest radiograph November 07, 2020. FINDINGS: Lung volumes are mildly diminished. This is unchanged. There is no pneumothorax or pleural effusion. Bilateral airspace opacities are noted. These have improved since exam of November 07, 2020. Cardiomediastinal silhouette is stable. IMPRESSION: Bilateral airspace opacities suggestive of an infectious process, improved since chest radiograph of November 07, 2020. ACT 112: Negative or not required by law. Electronically signed by: Fabrice Randall M.D. 11/18/2020 9:52 AM Chest CTA 11/18/20 09:32 CT ANGIOGRAPHY OF THE CHEST, PULMONARY EMBOLUS PROTOCOL CLINICAL HISTORY: Cough. Shortness of breath. Covid. COMPARISON STUDY: Chest CT March 03, 2020. Chest radiograph performed earlier today. TECHNIQUE: Following IV administration of 118 mL of Optiray, helical axial images of the chest were obtained utilizing the pulmonary embolus protocol. Maximal intensity projections and sagittal and coronal reformats were viewed on an independent 3D workstation. IV contrast was administered without complication. Automated exposure control was utilized for the study. A dose lowering technique was utilized adhering to the principles of ALARA. CT DOSE: 260.46 mGycm FINDINGS: No pulmonary emboli are identified although the segmental and subsegm ental pulmonary arteries are suboptimally assessed due to respiratory motion. There is no thoracic aortic dissection. No pericardial effusion is present. Size of the heart is normal. No pneumothorax or pleural effusion is noted. There are a few focal airspace opacities throughout the lungs. These have improved since chest radiograph November 07, 2020. No cavitation is present. Central airways are patent. There is no thoracic lymphadenopathy. Mild dextroscoliosis of the thoracic spine is noted. There is no pneumomediastinum. IMPRESSION: 1. No pulmonary emboli identified although segmental and subsegmental pulmonary arteries suboptimally assessed due to respiratory motion. 2. Moderate multifocal airspace opacities throughout the lungs, decreased since chest radiograph of November 07, 2020. The findings represent viral pneumonia. ACT 112: Negative or not required by law. Electronically signed by: Fabrice Randall M.D. 11/18/2020 10:45 AM ECG Data Indication: + SOB/dyspnea and + tachycardia Rate (beats per minute): 137 Rhythm: + sinus tachycardia ECG Intervals/blocks: + Normal QRS, + Normal QT and + Normal [place] ECG [place]: + Normal ECG ST segments: + Normal ST segments ECG Findings: no PACs or no PVCs Comparison ECG Date: from (11/05/20) Change: the following changes noted (QRS length is decreased) MDM Narrative This patient comes in as described above. She is recovering from Covid and no longer has a fever but continues have a cough. She was noted to be tachycardic in triage. I did order a full sepsis type work-up given her immunocompromise state. IV access was established, blood work was obtained ,chest x-ray, and EKG was obtained as well as a D-dimer and cardiac biomarkers. EKG shows sinus tachycardia without ischemia. Troponin is not elevated. Her white count is not elevated but her lactic acid is but pro calcitonin is low. Her infiltrates actually looks slightly better than before. She is not hypoxemic. Her blood sugar was also in the 400s although she is not acidotic. We did give her 5 units of regular insulin subcu and when rechecked an hour later it was normal in the 90s. Given her immunocompromise state, her tachycardia elevated lactic acid and infiltrates I do think she needs to be admitted. It may be that this is related to ongoing Covid issues. Additionally she does have elevated blood sugar. I have consulted Dr. Duran to see her in the ER for these measures. Continuous cardiac monitoring: Orders placed in EMR for continuous cardiac monitoring. Upon my interpretation the patient was noted to be sinus tachycardia with a rate of 135 Impression & Plan COVID, Jocelynn-Taybi syndrome, D-dimer, elevated, Cough, Acute hyperglycemia Discharge Plan Visit Data Chief Complaint: Cough Stated Complaint: COUGH-DR MASTERS CHEST XRAY ED Provider: Reynold Acevedo Discharge Problem: COVID, Jocelynn-Taybi syndrome, D-dimer, elevated, Cough, Acute hyperglycemia Patient Disposition: Admitted As Inpatient Discharge Instructions Interventions: ED Discharge Assessment Last Done: 11/18/20 14:29
[2020-11-18 08:45] LABS: Eosinophils # (auto) 0.03 K/uL (0-0.5); Eosinophils % (auto) 0.4 %; Hemoglobin 12.1 g/dL (12.0-16.0); Immature Granulocytes # (auto) 0.02 K/uL (0.00-0.02); Immature Granulocytes % (auto) 0.3 %; Lymphocytes # (auto) 1.67 K/uL (1.2-3.4); Lymphocytes % (auto) 22.5 %; Mean Corpuscular Hemoglobin 28.2 pg (25-34); Mean Corpuscular Hgb Conc 32.7 g/dL (32-36); Mean Corpuscular Volume 86.2 fL (80-100); Mean Platelet Volume 11.2 fL (7.4-10.4); Monocytes # (auto) 1.19 K/uL (0.11-0.59); Monocytes % (auto) 16.1 %; Neutrophils % (auto) 60.7 %; Platelet Count 408 K/uL (130-400); RDW Coefficient of Variation 15.7 % (11.5-14.5); RDW Standard Deviation 49.9 fL (36.4-46.3); Red Blood Count 4.29 M/uL (4.2-5.4); White Blood Count 7.41 K/uL (4.8-10.8)
[2020-11-18 08:57] LABS: INR 1.5 (0.9-1.1); Prothrombin Time 14.6 Seconds (9.0-12.0)
[2020-11-18 08:57] LABS: Appearance Urine Clear (Clear); Bilirubin Urine Negative (Negative); Blood Urine Negative (Negative); Color Urine Yellow; Glucose Urine UA 3+ (Negative); Ketones Urine Negative (Negative); Leukocyte Esterase Urine Trace (Negative); Nitrite Urine Negative (Negative); Protein Urine Negative (Negative); Specific Gravity Urine 1.011 (1.000-1.030); Urobilinogen Urine Negative (Negative); pH Urine 6.5 (4.5-7.5)
[2020-11-18 09:02] LABS: Partial Thromboplastin Ratio 0.8; Partial Thromboplastin Time < 20.0 Seconds (21.0-31.0)
[2020-11-18 09:05] LABS: Renal Epithelial Cells Urine 0-5 /lpf (0-5)
[2020-11-18 09:06] LABS: Bacteria Urine 1+ (Negative)
[2020-11-18 09:08] LABS: D Dimer 1090 ug/L FEU (0-500)
[2020-11-18 09:27] LABS: Alanine Aminotransferase 48 U/L (12-78); Albumin Globulin Ratio 0.6 (0.9-2); Albumin Level 2.8 gm/dl (3.4-5.0); Alkaline Phosphatase 55 U/L (45-117); Aspartate Aminotransferase 20 U/L (15-37); BUN Creatinine Ratio 9.1 (10-20); Bilirubin,Total 0.5 mg/dl (0.2-1); Blood Urea Nitrogen 9 mg/dl (7-18); Calcium 8.3 mg/dl (8.5-10.1); Carbon Dioxide 25 mmol/L (21-32); Chloride 93 mmol/L (98-107); Est GFR (African American) 91.3 ml/min; Est GFR (Non-African American) 78.8 ml/min; Globulin 4.4 gm/dl (2.5-4.0); Glucose 464 mg/dl (70-99); Magnesium 2.4 mg/dl (1.8-2.4); Potassium 4.5 mmol/L (3.5-5.1); Sodium 127 mmol/L (136-145); Total Protein 7.2 gm/dl (6.4-8.2); Troponin I < 0.015 ng/ml (0-0.045)
[2020-11-18] MEDS ORDERED: SODIUM CHLORIDE 0.9% 500 ML IV ONE (09:30)
[2020-11-18] MEDS ORDERED: NovoLIN-R INSULIN PER UNIT CHARGE SC STA (09:31)
[2020-11-18 09:48] LABS: Adenovirus PCR Not Detected (NotDetected); Bordetella parapertussis PCR Not Detected (NotDetected); Bordetella pertussis PCR Not Detected (NotDetected); Chlamydia pneumoniae PCR Not Detected (NotDetected); Coronavirus 229E PCR Not Detected (NotDetected); Coronavirus HKU1 PCR Not Detected (NotDetected); Coronavirus NL63 PCR Not Detected (NotDetected); Coronavirus OC43PCR Not Detected (NotDetected); Human Metapneumovirus PCR Not Detected (NotDetected); Influenza A PCR Not Detected (NotDetected); Influenza B PCR Not Detected (NotDetected); Mycoplasma pneumoniae PCR Not Detected (NotDetected); Parainfluenza Virus 1 PCR Not Detected (NotDetected); Parainfluenza Virus 2 PCR Not Detected (NotDetected); Parainfluenza Virus 3 PCR Not Detected (NotDetected); Parainfluenza Virus 4 PCR Not Detected (NotDetected); Respiratory Syncytial VirusPCR Not Detected (NotDetected); Rhinovirus/Enterovirus PCR Not Detected (NotDetected)
[2020-11-18 09:52] LABS: Coronavirus CoV-2 (COVID19)PCR DETECTED (NotDetected)
--- NOTE | 2020-11-18 09:53 | XRay Report ---
XR chest 1V portable CLINICAL HISTORY: Sepsis. Cough. COMPARISON STUDY: Chest radiograph November 07, 2020. FINDINGS: Lung volumes are mildly diminished. This is unchanged. There is no pneumothorax or pleural effusion. Bilateral airspace opacities are noted. These have improved since exam of November 07. Cardiomediastinal silhouette is stable. IMPRESSION: Bilateral airspace opacities suggestive of an infectious process, improved since chest r adiograph of November 07, 2020. ACT 112: Negative or not required by law. Electronically signed by: Fabrice Randall M.D. 11/18/2020 9:52 AM
[2020-11-18 10:09] LABS: Beta-Hydroxybutyrate 1.03 mg/dl (0.2-2.81)
[2020-11-18] MEDS ORDERED: OPTIRAY 320 125ml IV ONE (10:32)
--- NOTE | 2020-11-18 10:43 | History & Physical Report ---
Date of Service November 18, 2020 Assessment & Plan (1) COVID-19: Plan: Patient admitted for treatment of COVID-19 was given steroids while in hospital she does not have any hypoxemia. She test persistently positive. He does have a cough. She admits that initially tested positive for Covid on November 05. does not require airborne isolation but will be not cohorted with someone who is not covid positive CXR shows improvement. likely lagging affects from previous covid pneumonia. will treat with anittussives (2) Elevated blood sugar: Plan: Patient persistent elevated blood glucose. was sent home on metformin, last HA1c was 6.4. 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 History of Present Illness Primary Care Provider: FARAZ Jackson This patient is a 30-year-old immunocompromised woman who comes in [facility] persistent coughing after recent admission from covid pneumonia.During that stay she did have hyperglycemia that was attributed to steroid use, was not discharged on steroids or diabetic medication . She was discharged about a week ago. She finished antibiotics 2 days after hospitalization. She has had no fever she has been keeping up with her fluids but she continues have a deep cough. She has chest pain with coughing only. No sore throat. No trauma or injury. Mother called her doctor yesterday as she was still coughing and was sent to the ER where she was found with hyponateremia and hyperglycemia Allergies Allergy/AdvReac Type Severity Reaction Status Date / Time amoxicillin Allergy Unknown Rash Verified 11/18/20 08:06 Home Medications Medication Instructions Recorded Confirmed Type fluticasone propionate 50 2 spray INTRANASAL BID PRN 05/10/18 11/18/20 History mcg/actuation nasal spray,suspension gabapentin 100 mg capsule 300 mg PO HS 05/10/18 11/18/20 History norethindrone acetate 5 mg tablet 10 mg PO HS 05/10/18 11/18/20 History Ivig 0 mg IV MONTHLY 04/18/19 11/18/20 History ascorbic acid (vitamin C) 1,000 mg 1 g PO QAM 06/06/19 11/18/20 History tablet (Vitamin C) famotidine 20 mg tablet (Pepcid) 20 mg PO HS #30 tab 06/07/19 11/18/20 Rx pantoprazole 40 mg tablet,delayed 40 mg PO BID #0 tab 06/07/19 11/18/20 Rx release guanfacine 1 mg tablet 2 mg PO QAM 03/03/20 11/18/20 History lorazepam 0.5 mg tablet (Ativan) See Rx Instructions .ROUTE 11/07/20 11/18/20 History .COMPLEX PRN lurasidone 40 mg tablet (Latuda) 40 mg PO PM 11/07/20 11/18/20 History meloxicam 15 mg tablet 15 mg PO QAM 11/07/20 11/18/20 History trazodone 50 mg tablet 50 mg PO HS 11/07/20 11/18/20 History buspirone 10 mg tablet 10 mg PO TID #90 tab 11/11/20 11/18/20 Rx guanfacine 1 mg tablet 1 mg PO DAILY@1400 #30 tab 11/11/20 11/18/20 Rx potassium chloride 20 mEq 20 meq PO BID #20 tab 11/11/20 11/18/20 Rx tablet,extended release acetaminophen 500 mg tablet 1,000 mg PO Q6H PRN 11/18/20 11/18/20 History (Tylenol Extra Strength) rivaroxaban 10 mg tablet (Xarelto) 10 mg PO QAM 11/18/20 11/18/20 History Past Med/Surg History Medical History Abdominal pain Altered mental status Deep vein thrombosis (DVT) of left upper extremity (01/2019) Elevated troponin H. 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 intake no chest pain, pressure or palpitations Mild shortness of breath, nonproductive cough no wheezes no abdominal pain, nausea or vomiting, diarrhea or constipation no dysuria, hematuria or frequency no focal joint pain or swelling no back pain, CVA tenderness or radicular pain no bruising, bleeding or rashes no focal signs of weakness or numbness or altered sensation no complaints of anxiety or depression.. Physical Exam Physical Exam: The patient appeared to genetic deformity very petite craniofacial abnormalities Vital signs as documented. Head exam is normocephalic atraumatic Neck is without JVD, thyromegaly, or carotid bruits. Lungs are coarse bilaterally, mild coughing with deep inspiration Cardiac exam, Rhythm is regular.. No murmurs, rubs or gallops. Abdominal exam reveals normal bowel sounds, soft non tender, no masses Extremities are nonedematous and both pedal pulses are present Neurologic exam is alert and oriented x2, she had DD, no focal loss of strength or sensation Skin is with bruises from prevous hospitalization Psychologically is without concerns for anxiety or depression Results & Data Results & Data ([facility]) Vital Signs (Past 12 Hours) Vital Signs Temp Pulse Pulse Resp BP BP Pulse Ox 11/18/20 10:00 132 H 29 H 148/95 H 99 11/18/20 09:30 128 H 27 H 125/85 96 11/18/20 09:00 142 H 22 131/78 97 11/18/20 08:43 133 H 96 H 34 H 138/95 138/95 96 11/18/20 07:41 98.1 F 140 H 24 157/95 H 96 PG Care Time/CCT Total # of Minutes Spent Total Time Spent with Patient: Total time spent is greater than 50% in coordination of care (as documented) at patient's floor/unit and/or counseling patient: Coding Level of Care Code 20668 Initial Inpt Care Lvl 3 Diagnoses COVID-19 U07.1 Elevated blood sugar R73.9 Common variable immunodeficiency D83.9 Jocelynn-Taybi syndrome Q87.2 Kabuki syndrome Q89.8 Deep vein thrombosis (DVT) of left upper extremity I82.622
--- NOTE | 2020-11-18 10:46 | CT Scan Report ---
CT ANGIOGRAPHY OF THE CHEST, PULMONARY EMBOLUS PROTOCOL CLINICAL HISTORY: Cough. Shortness of breath. Covid. COMPARISON STUDY: Chest CT March 03, 2020. Chest radiograph performed earlier today. TECHNIQUE: Following IV administration of 118 mL of Optiray, helical axial images of the chest were o btained utilizing the pulmonary embolus protocol. Maximal intensity projections and sagittal and cor onal reformats were viewed on an independent 3D workstation. IV contrast was administered without co mplication. Automated exposure control was utilized for the study. A dose lowering technique was ut ilized adhering to the principles of ALARA. CT DOSE: 260.46 mGycm FINDINGS: No pulmonary emboli are identified although the segmental and subsegmental pulmonary arter ies are suboptimally assessed due to respiratory motion. There is no thoracic aortic dissection. No p ericardial effusion is present. Size of the heart is normal. No pneumothorax or pleural effusion is n oted. There are a few focal airspace opacities throughout the lungs. These have improved since chest radiograph November 07, 2020. No cavitation is present. Central airways are patent. There is no thor acic lymphadenopathy. Mild dextroscoliosis of the thoracic spine is noted. There is no pneumomediasti num. IMPRESSION: 1. No pulmonary emboli identified although segmental and subsegmental pulmonary arteries suboptimally assessed due to respiratory motion. 2. Moderate multifocal airspace opacities throughout the lungs, decreased since chest radiograph of [facility] 2020. The findings represent viral pneumonia. ACT 112: Negative or not required by law. Electronically signed by: Fabrice Randall M.D. 11/18/2020 10:45 AM
--- NOTE | 2020-11-18 13:02 | Electrocardiogram Report ---
Test Reason : Blood Pressure : / mmHG Vent. Rate : 137 BPM Atrial Rate : 137 BPM P-R Int : 120 ms QRS Dur : 078 ms QT Int : 296 ms P-R-T Axes : 063 167 044 degrees QTc Int : 446 ms Sinus tachycardia Poor R wave progression, consider anterior AR vs. lead placement vs. LVH Abnormal ECG When compared with ECG of 05-NOV-2020 08:52, Incomplete right bundle branch block is no longer Present Nonspecific T wave abnormality no longer present Confirmed by Arya Cabrera ([id number]) on 11/18/2020 1:02:20 PM Referred By: REFERRED SELF Confirmed By:Arya Cabrera
[2020-11-18 13:41] LABS: Potassium 4.5 mmol/L (3.5-5.1)
[2020-11-18 13:42] LABS: BUN Creatinine Ratio 10.8 (10-20); Calcium 8.8 mg/dl (8.5-10.1); Creatinine Clr Calc Pharmacy 43.2 ml/min; Est GFR (African American) 131.5 ml/min; Est GFR (Non-African American) 113.5 ml/min
[2020-11-18] MEDS ORDERED: DEXTROSE 50% 50 ML SYRINGE IV PRN (14:48)
[2020-11-18] MEDS ORDERED: ONDANSETRON INJ 2 MG/ML 2 ML VIAL IV PRN (14:48)
[2020-11-18] MEDS ORDERED: guanFACINE HCL 1 MG TAB PO SCH (14:48)
[2020-11-18] MEDS ORDERED: LORazepam 0.5 MG TAB PO PRN (14:48)
[2020-11-18] MEDS ORDERED: ALUMINUM/MAGNESIUM SUSP 30 ML UDC PO PRN (14:48)
[2020-11-18] MEDS ORDERED: GLUCOSE 10 TABS/TUBE PO PRN (14:48)
[2020-11-18] MEDS ORDERED: CARBOHYDRATES FOR HYPOGLYCEMIA PO PRN (14:48)
[2020-11-18] MEDS ORDERED: GLUCAGON FOR INJ 1 MG VIAL SQ PRN (14:48)
[2020-11-18] MEDS ORDERED: ACETAMINOPHEN 325 MG TAB PO PRN (14:48)
[2020-11-18] MEDS ORDERED: SODIUM CHLORIDE 0.9% 1000ML 1,000 ML IV SCH (14:48)
[2020-11-18] MEDS ORDERED: GLUCOSE 40% GEL 15 GM TUBE PO PRN (14:48)
[2020-11-18] MEDS ORDERED: FLUTICASONE PROPIONATE NA SPR 16 GM BTL NAE PRN (14:48)
[2020-11-18] MEDS ORDERED: PHARMACY GLYCEMIC MGMT CONSULT PRN (14:48)
[2020-11-18] MEDS ORDERED: IMMUNE GLOBULIN (HUMAN) SOLN IV ONE (14:48)
[2020-11-18] MEDS ORDERED: COUGH DROP (SUGAR FREE) LOZ 24 LOZ/1 BOX BUCCAL PRN (14:48)
[2020-11-18] MEDS ORDERED: ACETAMINOPHEN 500 MG TAB PO PRN (15:15)
[2020-11-18] MEDS: METOPROLOL TARTRATE 1 MG/ML VIAL IV PRN (15:46)
[2020-11-18] MEDS: BENZONATATE 100 MG CAPSULE PO SCH ×2 (16:04→21:17)
[2020-11-18] MEDS: busPIRone 5 MG TAB PO SCH ×2 (16:05→21:17)
[2020-11-18] MEDS: LURASIDONE HCL 40 MG TAB PO SCH (16:05)
[2020-11-18] MEDS: guanFACINE HCL 1 MG TAB PO SCH (16:06)
[2020-11-18] MEDS: INSULIN ASPART 100 UNITS/ML 3 ML PEN SC SCH ×2 (17:53→21:15)
[2020-11-18] MEDS ORDERED: GABAPENTIN 300 MG CAP PO SCH (21:00)
[2020-11-18] MEDS ORDERED: NORETHINDRONE 5 MG TAB PO SCH (21:00)
[2020-11-18] MEDS ORDERED: FAMOTIDINE 20 MG TAB PO SCH (21:00)
[2020-11-18] MEDS ORDERED: traZODone HCL 50 MG TAB PO SCH (21:00)
[2020-11-18] MEDS: guaiFENesin/CODEINE 100MG/10MG 5ML UDC PO PRN (21:17)
[2020-11-18] MEDS: PANTOprazole 40 MG TAB PO SCH (21:17)
[2020-11-18] MEDS: POTASSIUM CHLORIDE CRTAB 20 MEQ TABCR PO SCH (21:17)
[2020-11-19] MEDS: INSULIN ASPART 100 UNITS/ML 3 ML PEN SC SCH ×5 (00:15→17:27)
[2020-11-19] MEDS: guaiFENesin/CODEINE 100MG/10MG 5ML UDC PO PRN ×2 (02:27→08:10)
[2020-11-19] MEDS: METOPROLOL TARTRATE 1 MG/ML VIAL IV PRN (07:51)
[2020-11-19 07:53] LABS: BUN Creatinine Ratio 9.4 (10-20); Calcium 8.6 mg/dl (8.5-10.1); Creatinine Clr Calc Pharmacy 80.6 ml/min; Est GFR (African American) 113.9 ml/min; Est GFR (Non-African American) 98.2 ml/min; Potassium 4.1 mmol/L (3.5-5.1)
[2020-11-19] MEDS: BENZONATATE 100 MG CAPSULE PO SCH ×2 (07:57→12:53)
[2020-11-19] MEDS: PANTOprazole 40 MG TAB PO SCH (07:58)
[2020-11-19] MEDS: POTASSIUM CHLORIDE CRTAB 20 MEQ TABCR PO SCH (07:58)
[2020-11-19] MEDS: busPIRone 5 MG TAB PO SCH ×2 (07:58→15:12)
[2020-11-19] MEDS ORDERED: ASCORBIC ACID 500 MG TAB PO SCH (09:00)
[2020-11-19] MEDS ORDERED: MELOXICAM 7.5 MG TAB PO SCH (09:00)
[2020-11-19] MEDS ORDERED: guanFACINE HCL 1 MG TAB PO SCH ×2 (09:00)
[2020-11-19] MEDS ORDERED: RIVAROXABAN 10 MG TABLET PO SCH (09:00)
[2020-11-19] MEDS ORDERED: INSULIN GLARGINE SOLOSTAR 100 UNITS/ML 3 ML PEN SC SCH (09:45)
--- NOTE | 2020-11-19 13:10 | Pharmacy Report ---
Pharmacy Glycemic Short Note 2 - Date of Service November 19, 2020 - Glycemic Short BSG Results (Last 24 hours): 11/18/20 11/18/20 11/18/20 12:57 20:25 23:59 Glucose 110 H POC Glucose 238 H 120 H 11/19/20 11/19/20 11/19/20 03:52 04:44 06:22 Glucose 177 H POC Glucose 92 86 11/19/20 11/19/20 07:44 10:58 Glucose POC Glucose 172 H 97 OUTPATIENT ANTIDIABETIC REGIMEN: * N/A * HbA1c: 6.4% (11/07/20) ASSESSMENT: * ES is a 30 year old female admitted on 11/18/20 with persistent coughing after recent admission for COVID-19 * Patient was receiving steroids as an outpatient and was requiring significant amount of insulin last admission while on steroids * No steroids ordered currently * BSG on presentation was 464 mg/dL, but normalized to 110 mg/dL after only 5 units of Novolog * Will be conservative with initial insulin dosing in light of pre-diabetic patient and no steroids PLAN FOR INPATIENT GLYCEMIC CONTROL: * Basal insulin * hold for now * Bolus insulin * NovoLog per scale ACHS or Q6hrs while NPO * Goal Range: Low 110 mg/dL - High 140 mg/dL * Correction Factor: 30 mg/dL/unit * Nutritional / Prandial insulin per carb ratio of 1 unit per 10 grams CHO consumed PLAN FOR DISCHARGE: * HbA1c of 6.4% is suggestive of pre-diabetes * Should encourage healthy life-style (diet, exercise, and smoking cessation) * If treatment is desired, could consider metformin XR 500 mg PO daily with evening meal
[2020-11-19] MEDS: guanFACINE HCL 1 MG TAB PO SCH (15:12)
[2020-11-19] MEDS ORDERED: DICLOFENAC SOD 1% GEL 100 GM TUBE EXT SCH (17:00)
--- NOTE | 2020-11-19 17:14 | Discharge Summary ---
Date of Service date of admission - November 18, 2020 date of discharge - November 19, 2020 Admission HPI Per Admitting Provider This patient is a 30-year-old immunocompromised woman who comes in [facility] persistent coughing after recent admission for COVID-19 pneumonia. During that stay she did have hyperglycemia that was attributed to steroid use, was not discharged on steroids or diabetic medication . She was discharged about a week ago. She finished antibiotics 2 days after hospitalization. She has had no fever, she has been keeping up with her fluids, but she continues have a deep cough. She has chest pain with coughing only. No sore throat. No trauma or injury. Mother called her doctor yesterday as she was still coughing and was sent to the ER where she was found with hyponatremia and hyperglycemia Principal Diagnosis 1. hyponatremia 2. uncontrolled diabetes mellitus 3. severe cough from recent COVID-19 pneumonia Discharge Exam Gen: dysmorphic appearing, emotional lability, severe cough Nose: copious nasal discharge Mouth: MMM Heart: tachy, s1 s2, no murmur Lungs: CTA b/l, but with deep breathing she develops cough Abd: soft, NT, ND, BS+ Ext: short limbs, no edema, pulses 2+ b/l Discharge Data Allergies Allergy/AdvReac Type Severity Reaction Status Date / Time amoxicillin Allergy Unknown Rash Verified 11/18/20 08:06 Consultations Diabetes Education Ordered Studies Chest X-Ray 11/18/20 08:03 XR chest 1V portable CLINICAL HISTORY: Sepsis. Cough. COMPARISON STUDY: Chest radiograph November 07, 2020. FINDINGS: Lung volumes are mildly diminished. This is unchanged. There is no pneumothorax or pleural effusion. Bilateral airspace opacities are noted. These have improved since exam of November 07, 2020. Cardiomediastinal silhouette is stable. IMPRESSION: Bilateral airspace opacities suggestive of an infectious process, improved since chest radiograph of November 07, 2020. ACT 112: Negative or not required by law. Electronically signed by: Fabrice Randall M.D. 11/18/2020 9:52 AM Chest CTA 11/18/20 09:32 CT ANGIOGRAPHY OF THE CHEST, PULMONARY EMBOLUS PROTOCOL CLINICAL HISTORY: Cough. Shortness of breath. Covid. COMPARISON STUDY: Chest CT March 03, 2020. Chest radiograph performed earlier today. TECHNIQUE: Following IV administration of 118 mL of Optiray, helical axial images of the chest were obtained utilizing the pulmonary embolus protocol. Maximal intensity projections and sagittal and coronal reformats were viewed on an independent 3D workstation. IV contrast was administered without complication. Automated exposure control was utilized for the study. A dose lowering technique was utilized adhering to the principles of ALARA. CT DOSE: 260.46 mGycm FINDINGS: No pulmonary emboli are identified although the segmental and subsegmental pulmonary arteries are suboptimally assessed due to respiratory motion. There is no thoracic aortic dissection. No pericardial effusion is present. Size of the heart is normal. No pneumothorax or pleural effusion is noted. There are a few focal airspace opacities throughout the lungs. These have improved since chest radiograph November 07, 2020. No cavitation is present. Central airways are patent. There is no thoracic lymphadenopathy. Mild dextroscoliosis of the thoracic spine is noted. There is no pneumomediastinum. IMPRESSION: 1. No pulmonary emboli identified although segmental and subsegmental pulmonary arteries suboptimally assessed due to respiratory motion. 2. Moderate multifocal airspace opacities throughout the lungs, decreased since chest radiograph of November 07, 2020. The findings represent viral pneumonia. ACT 112: Negative or not required by law. Electronically signed by: Fabrice Randall M.D. 11/18/2020 10:45 AM Hospital Course (1) Hyponatremia: Likely combination of volume depletion and "pseudohyponatremia" from severe hyperglycemia. Na level normalized during this quick hospital stay with IVF and Rx of her uncontrolled DM. Presenting Na level was 127, improving to 136 at d/c. (2) Uncontrolled diabetes mellitus: HbA1C on 11/07/20 was 6.4%. It is uncertain if Kavita is a type 1 diabetic or perhaps a "mix" type/type 2 d iabetic. Either way her recent hyperglycemia was likely caused by the physical stress of COVID-19 itself as well as corticosteroid effects. She was given insulin during the stay. Diabetes education met with her as well as her mother. Treatment options discussed. Plan for once-daily metformin 500mg daily. Testing supplies were prescribed. She will need close f/u for this issue soon after discharge. (3) Pneumonia due to COVID-19 virus: Clinically and radiographically improving however she continues with severe cough. See below. (4) Cough: The patient had a severe cough during the hospital stay. This is likely still from the lingering effects of her COVID-19 pneumonia. I cannot rule out cough from post-nasal drip. I cannot rule out cough from developing sinusitis (she had copious nasal discharge, and her mother reported her face looked puffy over the sinuses). Further, her mother reports a h/o frequent sinusitis in the face of #5 below. Recommendations - * ventolin inhaler 2 puffs prn * astelin nasal spray - 2 sprays/nostril BID * resume flonase * codeine-based cough syrup prn * if in 2-3 days the cough worsens/persists, nasal drainage worsens, etc - then Rx for sinusitis with levaquin x 7 days (5) Common variable immunodeficiency: Continue IVIG on monthly basis at [facility] as previous. (6) Deep vein thrombosis (DVT) of left upper extremity: Remains on Xarelto for history of such. (7) Kabuki syndrome: (8) Jocelynn-Taybi syndrome: (9) Sinusitis, acute: question of developing sinusitis. See #4 above. Total Time Total Time Spent Total Time Spent (In Minutes): 40 Discharge Plan Discharge Items Patient Disposition: Home - Home Health Services Reason For Visit: uncontrolled glucose, persistent cough, covid + Discharge Diagnosis: 1. cough - likely due to recent COVID pneumonia +/- post-nasal drip 2. question of early sinus infection 3. recent COVID-19 pneumonia - improving on CAT scan 4. uncontrolled diabetes - likely due to recent illness and recent steroids 5. low sodium level - resolved Activity: Resume your previous activity Non-emergency contact: Primary Care Provider Call non-emergency contact if: you have any medication questions, your symptoms worsen and you have a fever Follow-up/Referrals: Belén Bains CRNP [Primary Care Provider] - (see Ms Herson within 1 week ) Diet: Carb Consistent or DM2 Addtl Attending Provider Instructions: Kavita, You were admitted to the hospital for high blood sugars, severe cough, and low sodium levels. Your blood sugars and low sodium levels are now normal. The cough is likely from a combination of multiple factors including your recent COVID pneumonia, post-nasal drip, and perhaps even an early sinus infection. Recommendations - 1. diabetes - * starting 11/20/20 -- take metformin xr 500mg once daily with breakfast. We are not sending you home with insulin * metformin can sometimes cause some mild loose stool when initially it is taken; this side effect tends to get better with time * check your blood sugars once daily 2. for cough - * codeine-cough syrup -- 5ml every 6 hours as needed for cough * can try mixing honey with tea; honey is a good cough suppressant * can try albuterol inhaler via spacer device; can use the albuterol every 4 hours as needed; if the albuterol seems to help can continue its use 3. for nasal congestion / post-nasal drip - * continue your flonase nasal spray daily * start atelin nasal spray - 2 sprays each nostril twice daily; would use for about 7-10 days then try coming off of it 4. if your nasal congestion and cough persist despite all of the above (would wait at least 3-4 days of trying the above) you can start on antibiotic for possible sinus infection. The antibiotic is levofloxacin. If you take the antibiotic it is 500mg once daily for 7 days. Again, try all of the measures in #2 and #3 above before initiating the antibiotic. 5. for chest wall discomfort from coughing - * try heating pad * try voltaren (diclofenac) gel - 4 grams to the chest wall up to 4 times a day for 3-4 days then stop Follow-up - see separate section Return to [facility] if - * you have recurrent fevers over 100 degrees * you have shortness of breath * the cough worsens even further despite taking all of the above medications & measures * any other concerns Continue to feel better! Dr Zapata Pending Studies at Discharge: No Stand-Alone Forms: [facility], Smoking Cessation Medications and DC Order Prescriptions: New codeine-guaifenesin [Guaiatussin AC] 10-100 mg/5 mL Liquid 5 ml PO Q6H PRN (Reason: cough) Qty: 100 RF: 0 diclofenac sodium [Voltaren Arthritis Pain] 1 % Gel 4 g EXT QID Qty: 1 RF: 0 metformin 500 mg tablet extended release 24 hr 500 mg PO DAILY Qty: 30 RF: 2 (DME) OneTouch Verio test strips Strip See Rx Instructions .Route Qty: 100 RF: 1 (DME) lancets [OneTouch Delica Plus Lancet] 33 gauge misc See Rx Instructions .Route Qty: 100 RF: 1 azelastine 137 mcg (0.1 %) aerosol,spray 2 spray intranasal BID Qty: 30 RF: 1 albuterol sulfate [Ventolin HFA] 90 mcg/actuation HFA aerosol inhaler 2 inh inhalation Q4H PRN (Reason: cough) Qty: 6.7 RF: 0 (DME) Aerochamber Plus Flow-Vu Spacer See Rx Instructions .Route Qty: 1 RF: 0 levofloxacin 500 mg tablet 500 mg PO DAILY 7 Days Qty: 7 RF: 0 Continued norethindrone acetate 5 mg tablet 10 mg PO HS RF: 0 gabapentin 100 mg capsule 300 mg PO HS RF: 0 fluticasone propionate 50 mcg/actuation spray,suspension 2 spray Intranasal BID PRN (Reason: Allergy Symptoms) RF: 0 Ivig 0 mg IV MONTHLY RF: 0 guanfacine 1 mg tablet 2 mg PO QAM RF: 0 ascorbic acid (vitamin C) [Vitamin C] 1,000 mg Tablet 1 g PO QAM RF: 0 famotidine [Pepcid] 20 mg tablet 20 mg PO HS Qty: 30 RF: 0 pantoprazole 40 mg tablet,delayed release (DR/EC) 40 mg PO BID Qty: 0 RF: 0 acetaminophen [Tylenol Extra Strength] 500 mg Tablet 1,000 mg PO Q6H PRN (Reason: Pain) RF: 0 Xarelto 10 mg tablet 10 mg PO QAM RF: 0 trazodone 50 mg Tablet 50 mg PO HS RF: 0 meloxicam 15 mg Tablet 15 mg PO QAM RF: 0 lorazepam [Ativan] 0.5 mg Tablet See Rx Instructions .ROUTE .COMPLEX PRN (Reason: Anxiety) RF: 0 Latuda 40 mg Tablet 40 mg PO PM RF: 0 guanfacine 1 mg Tablet 1 mg PO DAILY@1400 Qty: 30 RF: 0 buspirone 10 mg tablet 10 mg PO TID Qty: 90 RF: 0 potassium chloride 20 mEq tablet extended release 20 meq PO BID Qty: 20 RF: 0 Discharge Orders: Discharge Order (Routine); Ordered 11/19/20 Ordered By: Noah Zapata Admission Data Admit Date/Time: 11/18/20 11:02 Attending Provider: Noah Zapata Admit Provider: Covaleski,Иван E. Primary Care Provider: Belén Bains Other Providers: Иван Duran Other Interventions: Discharge Summary Assessment (RN) Last Done: 11/19/20 17:51 Coding Level of Care Code 30722 OBS Care - Discharge Diagnoses Hyponatremia E87.1 Uncontrolled diabetes mellitus E11.65 Pneumonia due to COVID-19 virus U07.1; J12.82 Cough R05 Common variable immunodeficiency D83.9 Deep vein thrombosis (DVT) of left upper extremity I82.622 Kabuki syndrome Q89.8 Jocelynn-Taybi syndrome Q87.2 Sinusitis, acute J01.90
[2020-11-19] MEDS: LURASIDONE HCL 40 MG TAB PO SCH (17:25)
[2020-11-23] MEDS ORDERED: IMMUNE GLOBULIN(HUMAN) 10% 50 ML IV ONE (08:00)
[2020-11-23] MEDS ORDERED: IMMUNE GLOBULIN(HUMAN) 10% 100 ML IV ONE (09:30)
== END 2020-11-19 19:10 | disposition home health service (06) ==
LOC: 2W 07:37 → ED 07:37 → SUATTDRO 11:02 → 2W 14:29